=== PATIENT | female | born 1965 | race Caucasian/White ===

== ENCOUNTER 2024-12-31 12:13 | Emergency (ER) | payer MEDICARE, MEDICAID, SELFPAY ==
--- OUTSIDE RECORDS SUMMARY | 2024-12-31 12:22 | XMS_ITS | Encounter Summary ---
Author Organization [facility] Address [address] [place] [address] Phone Care Team Providers Care Business Writer Name Role Phone LeonSerge MD Unavailable [phone] Naresh Chandra MD Unavailable [phone] Espinoza Carcamo DO Unavailable [phone] Veronique Novak MD Unavailable [phone] Dex Mejia MD Unavailable Haim Wilkins Unavailable Pam Baig MD Unavailable [phone] Tariq Welch MD Unavailable [phone] Fatoumata Cox MD Unavailable Carlos Logan DISTRICT SCOUT EXECUTIVE, TAPE SEWING MACHINE OPERATOR Unavailable + [phone] Kris Portillo MD Unavailable Adam Kwan Primary Care Provider + [phone] Encounter Details Date Type Department Care Team (Latest Contact Info) Description 12/29/2024 Results Follow-Up [facility] - Primary Care - [place] [address] [place] [address] Adam Kwan, PAC [address] [place] [address] LIPID PANEL, CBC WITH AUTO DIFFERENTIAL Social History Tobacco Use Types Packs/Day Years Used Date Smoking Tobacco: Never Smokeless Tobacco: Never Alcohol Use Standard Drinks/Week Comments No 0 (1 standard drink = 0.6 oz pur e alcohol) [facility] Utilities Answer Date Recorded In the past 12 months has e electric, gas, oil, or water company threatened to shut off services in your home? Yes 03/10/2024 Social Connection and Isolat ion Panel [NHANES] Answer Date Recorded In a typical week, how many times do you talk on the phone with family, friends, or neighbors? More than three times a week 03/10/2024 Frequency of Social Gatherin gs with Friends and Family Not on file 03/10/2024 Attends Orthodox Services Not on file 03/10 Active Member of Clubs or Organizations Not on f ile 03/10/2024 Attends Club or Organization Meetings Not on marian e 03/10/2024 Marital Status Not on file 03/10/2024 AUDIT-C Answer Date Recorded Q1: How often do you have a drink containing alc ohol? Never 03/10/2024 Average Number of Drinks Not on file Frequency of Binge Drinking Not on file 09/2023 Overall Financial Resource Strain (CARDIA) Answe r Date Recorded How hard is it for you to pa y for the very basics like food, housing, medical care, and heating? Patient declined 03/10/2024 PHQ-2 Answer Date Recorded Total Score - Questions 1-9 10 08/10 [facility] - Occupational Stress Questionnaire Answer Date Recorded Do you feel stress - tense, restless, nervous, or anxious, or unable to sleep at night because your mind is troubled all the time - these days? Rather much 03/10/2024 Exercise Vital Sign Answer Date Recorde d Days of Exercise per Week Not on file 2023 On average, how many minutes do you engage in exercise at this level? 10 min 03/10/2024 Hunger Vital Sign Answer Date Recorded Within the past 12 months, y ou worried that your food would run out before you got the money to buy more. Often true 03/10/20 24 Ran Out of Food in the Last Year Not on file 03/10/2024 PRAPARE - Transportation Answer Date Re corded In the past 12 months, has l ack of transportation kept you from medical appointments or from getting medications? No 03/10/2024 Lack of Transportation (Non-Medical) Not on file 03/10/2024 Housing Stability Vital Sign Answer Kyle e Recorded In the last 12 months, was t here a time when you were not able to pay the mortgage or rent on time? No 03/10/2024 Number of Times Moved in the Last Year Not on fi le 03/10/2024 Homeless in the Last Year Not on file 2023 Education Answer Date Recorded What is the highest level of school you have completed or the highest degree you have received? 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 - Primary Care - [place] [address] [place] [place] [address] Adam Kwan, BREA [address] [place] [address] 05/08/2025 3:00 PM CDT Office Visit [facility] - Endocrinology - [place] [address] [place] [address] Kris Portillo MD [address] [id number] 06/07/2025 1:00 PM CDT Clinical Support [facility] Oncology Services [address] [place] [address] Serge Quintero MD [address] [place] [address] Discharge Disposition: Discharged to home or Selfcare 12/07/2025 11:40 AM CDT Office Visit [facility] Services [address] [place] [address] Serge Quintero MD [address] [place] [address] Discharge Disposition: Discharged to home or Selfcare documented as of this encounter Goals Goal Patient Goal Type Associated Problems Recent Progress Patient-Stated? Author Behavioral Health Behavioral Health On track(2021 2:58 PM CDT) Robbie Matihs, LEE Note: I need coping skills to deal with the chaos at my house. Goal/Objective: Decrease anxiety/depression. Anticipated Time Frame for Goal Completion: 6 months Goal Reviewed with: patient Readiness to change: Ready to change Department associated with goal: [facility] Steps to achieve goal: will identify at least two coping skills/activities/habits that have helped to manage anxiety in the past. will identify at least three new coping skills/activities/habits that may help to prevent and/or cope with anxiety. 3. will identify a plan to implement coping skills and follow this plan for two weeks and evaluate the impact on anxiety 4. Will attend individual and/or group therapy at least 1x/month at least 6 sessions reduce depression Behavioral Health Robbie Mathis, AUTO RENTAL SUPERVISOR Note: Goal/Objective: Increase coping skills for depression. Anticipated Time Frame for Goal Completion: 6 months Goal Reviewed with: patient Readiness to change: Ready to change Department associated with goal: [facility] Steps to achieve goal: will attend counseling/psychotherapy sessions at least once monthly, at least 6 sessions, utilizing individual and/or group sessions to express thoughts and feelings. to identify, verbalize and process at least three contributing factors/triggers to anxiety and depression. to identify and verbalize at least three actions/skills to prevent and/or cope with anxiety and depression. to put into action, at least one time weekly, for one month, an action/skill to prevent and or cope with anxiety and depression. documented as of this encounter Visit Diagnoses Not on filedocumented in this encounter Additional Health Concerns Assessment Noted Time PHQ-9 Depression Total Score: 10 025 3:13 PM CLINICAL STATISTICAL PROGRAMMER documented as of this encounter Care Teams Business Writer Relationship Specialty Start Date End Date Adam Kwan PAC [address] [place] [phone] PCP - General Physician Calender Runner 08/28/24 Serge Quintero MD Consulting Physician Hematology 07/03/15 Naresh Chandra MD Consulting Physician Radiation Oncology 07/03/15 Espinoza Carcamo DO Consulting Physician Gastroenterology 07/10/15 Veronique Novak MD Consulting Physician Psychiatry 02/14/16 Dex Mejia MD [address] [address] General Surgery 06/12/16 Haim Wilkins [address] [address] Consulting Physician Obstetrics & Gynecology 02/22/17 Pam Baig MD #[address] [address] Consulting Physician Pain Medicine-Pain Management 03/19/17 Tariq Welch MD [address] [address] Consulting Physician Orthopaedic Surgery 03/19/17 Fatoumata Cox MD [address] [place] [address] [address] [place] [address] Neuromuscular Medicine 03/19/17 Carlos Logan APRN, TAPE SEWING MACHINE OPERATOR [address] [place] [address] Nurse Practitioner Advanced Practice Nurse 12/01/22 Kris Portillo MD [address] [address] Consulting Physician Endocrinology 03/08/24 documented as of this encounter
--- OUTSIDE RECORDS SUMMARY | 2024-12-31 12:22 | XMS_ITS | Encounter Summary ---
Author Organization [facility] Address [address] [place] [address] Phone Care Team Providers Care Central Office Associate Name Role Phone QuinteroSrege MD Unavailable [phone] Naresh Chandra MD Unavailable [phone] Espinoza Carcamo DO Unavailable [phone] Veronique Novak MD Unavailable [phone] Dex Mejia MD Unavailable [phone] Haim Wilkins Unavailable Pam Baig MD Unavailable [phone] Tariq Welch MD Unavailable [phone] Fatoumata Cox MD Unavailable Marquis Mendez MD Unavailable Valorie Oates MD Primary Care Provider + [phone] Carlos Logan APRN, CNP Unavailable + [phone] Milagros Calloway MD Primary Care Provider + [phone] Kris Portillo MD Unavailable Adam Kwan Primary Care Provider + [phone] Reason for Visit * Reason Comments Medication Refill Encounter Details Date Type Department Care Team (Late st Contact Info) Description 06/09/2023 Refill [facility] [address] [place] [address] Carlos Logan APRN, RESTRICTIVE PREPARATION OPERATOR [address] [place] [address] Medication Refill Social History Tobacco Use Types Packs/Day Years Used Date Smoking Tobacco: Never Smokeless Tobacco: Never Alcohol Use Standard Drinks/Week Comments No 0 (1 standard drink = 0.6 oz pur e alcohol) PHQ-2 Answer Date Recorded Total Score - Questions 1-9 0 /0 11/2021 Education Answer Date Recorded What is the [...] 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 No / Unsure 05/31/2023 2:57 PM CDT documented as of this encounter Plan of Treatment Upcoming Encounters Date Type Department Care Team (Latest Contact Info) Description 01/05/2025 2:30 PM CDT Office Visit [facility] - Primary Care - [place] [address] [place] [address] Adam Kwan PAC [address] [place] [address] 05/08/2025 3:00 PM CDT Office Visit [facility] - Endocrinology - [place] [address] [place] [address] Kris Portillo MD [address] [address] 06/07/2025 1:00 PM CDT Clinical Support [facility] Oncology Services [address] [place] [address] Serge Quintero MD [address] [place] [address] Discharge Disposition: Discharged to home or Selfcare 12/07/2025 11:40 AM CDT Office Visit [facility] Oncology Services [address] [place] [address] Serge Quintero MD [address] [place] [address] Discharge Disposition: Discharged to home or Selfcare documented as of this encounter Goals Goal Patient Goal Type Associated Problems Recent Progress Patient-Stated? Author Behavioral Health Behavioral Health On track(2021 2:58 PM CDT) Robbie Mathis, LEE Note: I need coping skills to deal with the chaos at my house. Goal/Objective: Decrease anxiety/depression. Anticipated Time Frame for Goal Completion: 6 months Goal Reviewed with: patient Readiness to change: Ready to change Department associated with goal: [facility] Steps to achieve goal: [...] sessions reduce depression Behavioral Health Robbie Mathis, LEE Note: Goal/Objective: Increase coping skills for depression. Anticipated Time Frame for Goal Completion: 6 months Goal Reviewed with: patient Readiness to change: Ready to change Department associated with goal: [facility] Steps to achieve goal: [...] filedocumented in this encounter Additional Health Concerns Infection Onset Date Last Indicated Resolved Time Respiratory Rule-Out 09/27/2024 09/27/2024 025 2:11 PM STALLION KEEPER COVID - 19 09/27/2024 09/27/2024 09/27/2024 2:09 PM STALLION KEEPER Assessment Noted Time PHQ-9 Depression Total Score: 0 04/14/20 8:00 AM CDT documented as of this encounter Care Teams Central Office Associate Relationship Specialty Start Date End Date Valorie Benitez MD [address] [place] [address] PCP - General Family Medicine 12/24/22 09/13/23 Milagros Calloway MD [address] [place] [address] PCP - General Family Medicine 09/14/23 08/27/24 Adam Kwan, PAC [address] [address] PCP - General Physician Yarn Inspector 08/28/24 Serge Quintero MD Consulting Physician Hematology 07/03/15 Naresh Chandra MD Consulting Physician Radiation Oncology 07/03/15 Espinoza Carcamo DO Consulting Physician Gastroenterology 07/10/15 Veronique Novak MD Consulting Physician Psychiatry 02/14/16 Dex Mejia MD [address] [address] General Surgery 06/12/16 Haim Wilkins [address] [address] Consulting Physician Obstetrics & Gynecology 02/22/17 Pam Baig MD [address] [address] Consulting Physician Pain Medicine-Pain Management 03/19/17 Tariq Welch MD [address] [address] Consulting Physician Orthopaedic Surgery 03/19/17 Fatoumata Cox MD [address] [place] [address] Neuromuscular Medicine 03/19/17 Marquis Mendez MD [address] [place] [address] Consulting Physician Cardiovascular Disease - Cardiology 08/20/22 09/27/24 Carlos Logan, ENVIRONMENT COORDINATOR, RESTRICTIVE PREPARATION OPERATOR [address] [place] [address] Nurse Practitioner Advanced Practice Nurse 12/01/22 Kris Portillo MD [address] [address] Consulting Physician Endocrinology 03/08/24 documented as of this encounter
--- OUTSIDE RECORDS SUMMARY | 2024-12-31 12:22 | XMS_ITS | Encounter Summary ---
Author Organization [facility] Address [address] [place] [address] Phone Care Team Providers Care Assembler Watch Train Name Role Phone QuinteroSerge MD Unavailable [phone] Naresh Chandra MD Unavailable [phone] Espinoza Carcamo DO Unavailable [phone] Veronique Novak MD Unavailable [phone] Dex Mejia MD Unavailable [phone] Haim Wilkins Unavailable Pam Baig MD Unavailable [phone] Tariq Welch MD Unavailable [phone] Fatoumata Cox MD Unavailable Carlos Logan SPECIAL DELIVERY CARRIER, GOVERNMENT AUDITOR Unavailable [phone] Kris Portillo MD Unavailable Adam Kwan PAC Primary Care Provider + [phone] Reason for Visit * Reason Onset Date Comments Cough 10/02/2024 Encounter Details Date Type Department Care Team (Late st Contact Info) Description 10/02/2024 Nurse Triage [facility] [address] [place] [address] Adam Kwan, PAC [address] [place] [address] Cough Social History Tobacco Use Types Packs/Day Years Used Date Smoking Tobacco: Never Smokeless Tobacco: Never Alcohol Use Standard Drinks/Week Comments No 0 (1 standard drink = 0.6 oz pur e alcohol) [facility] Utilities Answer Date Recorded In the past [...] and Family Not on file 03/10/2024 Attends [employer] Not on file 03/10 Active Member [...] Total Score - Questions 1-9 10 08/10 [facility] - Occupational Stress [...] money to buy more. 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 MAIN FITTER HELPER * Telephone Encounter - Suri Solis RN - 10/02/2024 1:46 PM GAS MAIN FITTER HELPER Patient will have chest x-ray. Order pended. MAIN FITTER HELPER * Telephone Encounter - Adam Kwan PAC - 10/02/2024 1:01 PM CST Would patient be willing to get a CXR to further evaluate? I can place order and she can come get this done in office as an outpatient. MAIN FITTER HELPER * Telephone Encounter - Renae Wren RN - 10/02/2024 12:32 PM CST SITUATION: Cough/Shortness of Breath BACKGROUND: Symptoms ongoing, started on 09/27/24 Per chart review, seen in the office on 09/27/24 ASSESSMENT: Symptom Description / Location: Patient is calling the PCP office States that she is feeling worse than when she was in the office on 09/27/24 Patient states that when she was in the office she was diagnosed with bronchitis Patient was prescribed Prednisone Patient states her symptoms got worse on 09/29/24 Patient states her has been in the hospital with pneumonia Cough Dry hacking cough Intermittent Frequent Coughing to where she gags Chest Pain Mainly with coughing Has also had the chest pain when not coughing More in the middle of the chest/top Intermittent Rates pain 0/10 currently Shortness of Breath At rest and with exertion I am running of breath just talking Talking in phrases Wheezing Its all the time History of asthma Doesn't feel like she is having any asthma attack Was prescribed an inhaler at last office visit States she has only used the inhaler once today Denies Blue or castillo colored lips Rash or hives Coughing started suddenly after medicine, an allergic food or bee sting Difficulty breathing after exposure to flames, smoke, or fumes Asthma attack COVID-19 exposure Pain: Caller denies pain. Fever: Chills. Suspected a fever last night but unsure because she didn't check Treatment / Response: Cough drops with no relief. RECOMMENDATION: Go to Emergency Department Now This RN advised the patient that she should be seen in the Emergency Department for evaluation due to worsening shortness of breath Patient/caller refuses disposition of: GO to ED now Reiterated the importance of following recommendation as symptoms could indicate a serious or life-threatening situation Patient is not wanting to go to the Emergency Department as she is afraid of getting more sick This RN explained the importance of being seen to have her oxygen and lungs evaluated and how the Emergency Department has the most resources to evaluate and treat her Patient still continue to refuse the Emergency Department Patient response:Caller verbalized understanding of recommendations, but continues to refuse emergent disposition and requests provider recommendations. Caller notified that provider will review encounter for further recommendations Caller requesting an appointment in the office or for alternative medication. Care advice provided per triage guideline. Caller verbalized understanding. Pharmacy, medication, and allergies verified No appointments in the office for the rest of the day Patient is refusing the Emergency Department Patient would like to be seen in office or have alternative medication called into pharmacy Patient's recently hospitalized with pneumonia and while in the hospital he got the flu Would PCP be willing to work patient into the schedule or call in a prescription for patient? Encounter routed to provider high priority to notify. Please call patient back with provider advice regarding provider recommendation. Please advise Follow up with patient This RN advised the patient to call the office back or go to Emergency Department if symptoms worsen Patient verbalized understanding - See care advice and disposition for Guideline. First positive answer recorded, all responses to prior questions were negative. If symptoms increase, change or if new symptoms develop, call your health care provider or call back. Recommendations were based on caller information and is not a diagnosis. Verified and reviewed all triage information with caller. Reason for Disposition MODERATE difficulty breathing (e.g., speaks in phrases, SOB even at rest, pulse 100-120) and still present when not coughing Protocols used: Cough-A-OH MAIN FITTER HELPER * Telephone Encounter - Vee Ko - 10/02/2024 12:31 PM GAS MAIN FITTER HELPER Symptoms: Wheezing, Cough Outcome: Warm transfer to an emergent RN NOW! Reason: Any trouble breathing through the mouth The caller accepted this outcome. MAIN FITTER HELPER documented in this encounter Plan of Treatment Upcoming Encounters Date Type Department Care Team (Latest Contact Info) Description 01/05/2025 2:30 PM CDT Office Visit [facility] - [facility] - [place] [address] [place] [phone] Adam Kwan, [facility] [address] [place] [phone] 05/08/2025 3:00 PM CDT Office Visit [facility] - Endocrinology [facility] [address] [place] [phone] Kris Portillo MD [address] [phone] 06/07/2025 1:00 PM CDT Clinical Support [facility] Oncology Services [address] [place] [phone] Serge Quintero MD [address] [place] [address] Discharge Disposition: Discharged to home or Selfcare 12/07/2025 11:40 AM CDT Office Visit [facility] [address] [place] [phone] Serge Quintero MD [address] [place] [address] Discharge Disposition: Discharged to home or Selfcare documented as of this encounter Goals Goal Patient Goal Type Associated Problems Recent Progress Patient-Stated? Author Behavioral Health Behavioral Health On track(2021 2:58 PM CDT) Robbie Mathis, VETERINARY NURSE Note: I need coping skills to deal with the chaos at my house. Goal/Objective: Decrease anxiety/depression. Anticipated Time Frame for Goal Completion: 6 months Goal Reviewed with: patient Readiness to change: Ready to change Department associated with goal: [facility] Steps to achieve [...] least 6 sessions reduce depression Behavioral Health No Robbie Mejia, VETERINARY NURSE Note: Goal/Objective: Increase coping skills for depression. Anticipated Time Frame for Goal Completion: 6 months Goal Reviewed with: patient Readiness to change: Ready to change Department associated with goal: [facility] Steps to achieve [...] and depression. documented as of this encounter Results * XR CHEST 2 VIEWS (10/02/2024 2:47 PM GAS MAIN FITTER HELPER) Anatomical Region Laterality Modality Chest N/A Digital Radiogra phy 10/06/2024 9:57 AM GAS MAIN FITTER HELPER Impressions 10/06/2024 10:00 AM GAS MAIN FITTER HELPER IMPRESSION: No acute cardiopulmonary abnormality. Narrative 10/06/2024 10:00 AM GAS MAIN FITTER HELPER EXAM DESCRIPTION: XR CHEST 2 VIEWS REASON FOR STUDY: Left sided chest pain and cough for 13 days TECHNIQUE: Single radiographic view(s) of the chest. COMPARISON: 08/24/2022 FINDINGS: LUNGS: Pulmonary vascularity appears normal. No confluent infiltrate or effusion. Costophrenic angles are sharp. HEART/MEDIASTINUM: Cardiac silhouette normal in size. Mediastinal and hilar contours appear normal. LINES/TUBES: None. BONES: No acute osseous abnormality. THIS IS AN ELECTRONICALLY VERIFIED FINAL REPORT 10/06/2024 9:57 AM - Electronically signed by Dex Luis M.D. MJ: TRINY Report ID: [id number] Reading Location: [id number] Procedure Note Dex Luis MD - 10/06/2024 EXAM DESCRIPTION: XR CHEST 2 VIEWS REASON FOR STUDY: Left sided chest pain and cough for 13 days TECHNIQUE: Single radiographic view(s) of the chest. COMPARISON: 08/24/2022 FINDINGS: LUNGS: Pulmonary vascularity appears normal. No confluent infiltrate or effusion. Costophrenic angles are sharp. HEART/MEDIASTINUM: Cardiac silhouette normal in size. Mediastinal and hilar contours appear normal. LINES/TUBES: None. BONES: No acute osseous abnormality. THIS IS AN ELECTRONICALLY VERIFIED FINAL REPORT 10/06/2024 9:57 AM - Electronically signed by Dex Luis M.D. MJ: TRINY Report ID: [id number] Reading Location: [id number] IMPRESSION: No acute cardiopulmonary abnormality. Adam Kwan PAC IMG DIAGNOSTIC ORDERABLES Fi nal Result documented in this encounter Visit Diagnoses Diagnosis Acute cough- Primary Acute cough documented in this encounter Additional Health Concerns Assessment Noted Time PHQ-9 Depression Total Score: 10 025 3:13 PM GAS MAIN FITTER HELPER documented as of this encounter Care Teams Assembler Watch Train Relationship Specialty Start Date End Date Adam Kwan, PAC [address] [place] [address] PCP - General Physician Team Cdl Driver 08/28/24 Serge Quintero MD Consulting Physician Hematology 07/03/15 Naresh Chandra MD Consulting Physician Radiation Oncology 07/03/15 Espinoza Carcamo DO Consulting Physician Gastroenterology 07/10/15 Veronique Novak MD Consulting Physician Psychiatry 02/14/16 Dex Mejia MD [address] [address] General Surgery 06/12/16 Haim Wilkins [address] [address] Consulting Physician Obstetrics & Gynecology 02/22/17 Pam Baig MD [address] [address] Consulting Physician Pain Medicine-Pain Management 03/19/17 Tariq Welch MD [address] [address] Consulting Physician Orthopaedic Surgery 03/19/17 Fatoumata Cox MD [address] [place] [address] [address] [place] [address] Neuromuscular Medicine 03/19/17 Carlos Logan, SPECIAL DELIVERY CARRIER, GOVERNMENT AUDITOR [address] [place] [address] Nurse Practitioner Advanced Practice Nurse 12/01/22 Kris Portillo MD [address] [phone] Consulting Physician Endocrinology 03/08/24 documented as of this encounter
--- OUTSIDE RECORDS SUMMARY | 2024-12-31 12:22 | XMS_ITS | Encounter Summary ---
Author Organization [facility] Address [address] [place] [address] Phone Care Team Providers Care Senior Ios Developer Name Role Phone QuinteroSerge MD Unavailable [phone] Naresh Chandra MD Unavailable [phone] Espinoza Carcamo DO Unavailable [phone] Veronique Novak MD Unavailable [phone] Dex Mejia MD Unavailable [phone] Haim Wilkins Unavailable Pam Baig MD Unavailable [phone] Tariq Welch MD Unavailable Fatoumata Cox MD Unavailable Marquis Mendez MD Unavailable Valorie Oates MD Primary Care Provider + [phone] Carlos Logan APRN, CNP Unavailable [phone] Milagros Calloway MD Primary Care Provider + [phone] Kris Portillo MD Unavailable Aadm Kwan Primary Care Provider + [phone] Reason for Visit * Reason Comments Medication Refill Encounter Details Date Type Department Care Team (Late st Contact Info) Description 03/02/2023 Refill [facility] - [facility] - [place] [address] [place] [address] Valorie Benitez MD [address] [place] [address] Medication Refill Social History Tobacco Use Types Packs/Day Years Used Date Smoking Tobacco: Never Smokeless Tobacco: Never Alcohol Use Standard Drinks/Week Comments No 0 (1 standard drink = 0.6 oz pur e alcohol) PHQ-2 Answer Date Recorded Total Score - Questions 1-9 0 04/0 11/2021 Education Answer Date Recorded What is [...] 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 No / Unsure 02/16/2023 2:26 PM CDT documented as of this encounter Miscellaneous Notes * Telephone Encounter - Adam Kwan PAC - 03/03/2023 6:33 PM CDT Rx request approved. * Telephone Encounter - Gardenia Stacy RN - 03/02/2023 2:49 PM CDT Medication failed the protocol, provider to review and approve the medication order if appropriate. Requested Prescriptions Pending Prescriptions Disp Refills triamcinolone (KENALOG) 0.1 % Cream [Pharmacy Med Name: TRIAMCINOLONE ACETONIDE 0.1% CREAM] 45 g 1 Sig: APPLICATION SITE: APPLY THIN COAT TO AFFECTED AREA TWICE DAILY Not Delegated - Topical Steroids Protocol Failed - 03/02/2023 2:48 PM Failed - This refill cannot be delegated Passed - Visit with relevant provider in past 12 months or upcoming 90 days Recent Visits Date Type Provider Dept 12/24/22 Office Visit Valorie Benitez MD [facility] 10/12/22 Office Visit Ashley Sweeney APRN, REPRODUCTION TECHNICIAN [facility] 08/28/22 Office Visit Ashley Sweeney APRN, PATSY [facility] 06/30/22 Office Visit Ashley Sweeney APRN, PATSY [facility] 04/27/22 Office Visit Ashley Sweeney APRN, PATSY [facility] Showing recent visits within past 365 days and meeting all other requirements Future Appointments Date Type Provider Dept 03/22/23 Appointment Valorie Benitez MD [facility] Showing future appointments within next 90 days and meeting all other requirements documented in this encounter Plan of Treatment Upcoming Encounters Date Type Department Care Team (Latest Contact Info) Description 01/05/2025 2:30 PM CDT Office Visit [facility] - Primary Care - [place] [address] [place] [phone] Adam Kwan PAC [address] [place] [address] 05/08/2025 3:00 PM CDT Office Visit [facility] - Endocrinology - [place] [address] [place] [address] Kris Portillo MD [address] [phone] 06/07/2025 1:00 PM CDT Clinical Support [facility] Oncology Services [address] [place] [address] Serge Quintero MD [address] [place] [address] Discharge Disposition: Discharged to home or Selfcare 12/07/2025 11:40 AM CDT Office Visit [facility] [address] [place] [address] Serge Quintero MD [address] [place] [address] Discharge Disposition: Discharged to home or Selfcare [...] Ready to change Department associated with goal: [facility] Steps to achieve goal: [...] reduce depression Behavioral Health No Robbie Mejia, LEE Note: Goal/Objective: Increase coping skills for depression. Anticipated Time Frame for Goal Completion: 6 months Goal Reviewed with: patient Readiness to change: Ready to change Department associated with goal: [facility] Steps to achieve goal: [...] documented as of this encounter Visit Diagnoses Diagnosis Insect bite of right upper extremity, initial encounter documented in this encounter Additional Health Concerns Infection Onset Date Last Indicated Resolved Time Respiratory Rule-Out 09/27/2024 09/27/2024 025 2:11 PM FAMILY SUPPORT COORDINATOR COVID - 19 09/27/2024 09/27/2024 09/27/2024 2:09 PM FAMILY SUPPORT COORDINATOR Assessment Noted Time PHQ-9 Depression Total Score: 0 04/14/20 8:00 AM CDT documented as of this encounter Care Teams Senior Ios Developer Relationship Specialty Start Date End Date Valoire Benitez MD [address] [place] [address] PCP - General Family Medicine 12/24/22 09/13/23 Milagros Calloway MD [address] [place] [address] PCP - General Family Medicine 09/14/23 08/27/24 Adam Kwan, PAC [address] [place] [address] PCP - General Physician Tandem Mill Operator 08/28/24 Serge Quintero MD Consulting Physician Hematology 07/03/15 Naresh Chandra MD Consulting Physician Radiation Oncology 07/03/15 Espinoza Carcamo DO Consulting Physician Gastroenterology 07/10/15 Veronique Novak MD Consulting Physician Psychiatry 02/14/16 Dex Mejia MD [address] [address] General Surgery 06/12/16 Haim Wilkins [address] [address] Consulting Physician Obstetrics & Gynecology 02/22/17 Pam Baig MD [address] [address] Consulting Physician Pain Medicine-Pain Management 03/19/17 Tariq Welch MD [address] [address] Consulting Physician Orthopaedic Surgery 03/19/17 Fatoumata Cox MD [address] [place] [address] [address] [place] [address] Neuromuscular Medicine 03/19/17 Marquis Mendez MD [address] [facility] [address] [place] [address] Consulting Physician Cardiovascular Disease - Cardiology 08/20/22 09/27/24 Carlos Logan, ROD MILL TENDER, REPRODUCTION TECHNICIAN [address] [place] [address] Nurse Practitioner Advanced Practice Nurse 12/01/22 Kris Portillo MD [address] [address] Consulting Physician Endocrinology 03/08/24 documented as of this encounter
--- OUTSIDE RECORDS SUMMARY | 2024-12-31 12:22 | XMS_ITS | Encounter Summary ---
Author Organization [facility] Address [address] [place] [address] Phone Care Team Providers Care Slat Basket Top Maker Name Role Phone Serge Quintero MD Unavailable [phone] Naresh Chandra MD Unavailable [phone] Espinoza Carcamo DO Unavailable [phone] Veronique Novak MD Unavailable Dex Mejia MD Unavailable Haim Wilkins Unavailable Pam Baig MD Unavailable [phone] Tariq Welch MD Unavailable [phone] Fatoumata Cox MD Unavailable Marquis Mendez MD Unavailable LovendCarlos [place]s APRN, BARN BOSS Unavailable + [phone] Kris Portillo MD Unavailable Adam Kwan [facility] Primary Care Provider + [phone] Reason for Visit * Reason Onset Date Comments Appointment 09/26/2024 Loss of Consciousness 09/26/2024 Encounter Details Date Type Department Care Team (Late st Contact Info) Description 09/26/2024 Nurse Triage [facility] [address] [place] [address] Adam Kwan, PAC [address] [place] [address] Appointment; Loss of Consciousness Social History Tobacco Use Types Packs/Day Years Used Date Smoking Tobacco: Never Smokeless Tobacco: Never Alcohol Use Standard Drinks/Week Comments No 0 (1 standard drink = 0.6 oz pur e alcohol) [facility] Utilities Answer Date Recorded In the past 12 months has e [employer], gas, oil, or water Shoulder Tap threatened to shut off services in your home? Yes 03/10/2024 Social Connection and Isolat ion Panel [NHANES] Answer Date Recorded In a typical week, how many times do you talk on the phone with family, friends, or neighbors? More than three times a week 03/10/2024 Frequency of Social Gatherin gs with Friends and Family Not on file 03/10/2024 Attends Spiritism Services Not on file 03/10 Active Member of Clubs or Organizations Not on f ile 03/10/2024 Attends Club or Organization Meetings Not on marian e 03/10/2024 Marital Status Not on file 03/10/2024 AUDIT-C Answer Date Recorded Q1: How often do you have a drink containing alc ohol? Never 03/10/2024 Average Number of Drinks Not on file 024 Frequency of Binge Drinking Not on file 09/2023 Overall Financial Resource Strain (CARDIA) Answe r Date Recorded How hard is it for you to pa y for the very basics like food, housing, medical care, and heating? 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 Per chart review, last office visit 08/31/24 ASSESSMENT: Symptom Description / Location: Symptoms have not improved since discontinuing medication (HCTZ) States Passed out 3 times yesterday Gets up and walks a few steps, and passes out Reports last couple of times she has called with these symptoms, she has been sent to ED and she hasn't been helped- 'they can't figure anything out' Hasn't passed out at all today Has not yet tried the lasix that was prescribed as needed- is afraid to take it Reports has shaking anyway for anxiety baseline Became lightheaded and had to sit down while on phone call with this nurse while getting up to get a pen to write down appointment Pain: Caller denies pain. Fever: Denies fever. Treatment / Response: Tries to sit down a lot, states has chairs located all over so she can sit and not walk a lot with some relief. RECOMMENDATION: Patient/caller refuses disposition of: GO to ED now Reiterated the importance of following recommendation as symptoms could indicate a serious or life-threatening situation Patient response: Patient requesting appointment in office as opposed to emergency department. Advised that appointment may be cancelled by provider and provider may direct patient to ED for evaluation. Caller aware and verbalized understanding and agreement with plan. Provider to review and adviseon change in plan of care due to ED refusal. Appointment Scheduled. All Patient Appointments Date & Time Provider Department Dept Phone 09/27/2024 1:45 PM Adam Kwan [facility] - Primary Care - [place] [phone] Encounter routed to provider high priority to notify. - See care advice and disposition for Guideline. First positive answer recorded, all responses to prior questions were negative. If symptoms increase, change or if new symptoms develop, call your health care provider or call back. Recommendations were based on caller information and is not a diagnosis. Verified and reviewed all triage information with caller. Reason for Disposition Age > 50 years Protocols used: [id number] CAL OFFICE PROFESSIONAL INSTRUCTOR * Telephone Encounter - Yefri Gallagher - 09/26/2024 3:41 PM CST Symptom: Fainted (Passed Out) Outcome: Transfer to hides and skins colorer queue Reason: Caller denied all higher acuity questions The caller accepted this outcome. Caller Denied: * Unconscious now * Chest pain * Acting confused * Can't stand (unless normally can't stand) * Caused by head injury * Trouble walking CAL OFFICE PROFESSIONAL INSTRUCTOR documented in this encounter Plan of Treatment Upcoming Encounters Date Type Department Care Team (Latest Contact Info) Description 01/05/2025 2:30 PM CDT Office Visit [facility] Primary Care - [place] [address] [place] [id number] Adam Kwan, BREA [address] [place] [address] 05/08/2025 3:00 PM CDT Office Visit [facility] Endocrinology - [place] [address] [place] [phone] Kris Portillo MD [address] [phone] 06/07/2025 1:00 PM CDT Clinical Support [facility] Oncology Services [address] [place] [address] Serge Quintero MD [address] [place] [address] Discharge Disposition: Discharged to home or Selfcare 12/07/2025 11:40 AM CDT Office Visit [facility] [address] [place] [address] Serge Quintero MD [address] [place] [address] Discharge Disposition: Discharged to home or Selfcare documented as of this encounter Goals Goal Patient Goal Type Associated Problems Recent Progress Patient-Stated? Author Behavioral Health Behavioral Health On track(2021 2:58 PM CDT) Robbie Mathis, SANITATION INSPECTOR Note: I need coping skills to deal with the chaos at my house. Goal/Objective: Decrease anxiety/depression. Anticipated Time Frame for Goal Completion: 6 months Goal Reviewed with: patient Readiness to change: Ready to change Department associated with goal: [facility] Steps to achieve goal: [...] 6 sessions reduce depression Behavioral Health Robbie Mejia, SANITATION INSPECTOR Note: Goal/Objective: Increase coping skills for depression. Anticipated Time Frame for Goal Completion: 6 months Goal Reviewed with: patient Readiness to change: Ready to change Department associated with goal: [facility] Steps to achieve goal: [...] Respiratory Rule-Out 09/27/2024 09/27/2024 025 2:11 PM MEDICAL OFFICE PROFESSIONAL INSTRUCTOR COVID - 19 09/27/2024 09/27/2024 09/27/2024 2:09 PM MEDICAL OFFICE PROFESSIONAL INSTRUCTOR Assessment Noted Time PHQ-9 Depression Total Score: 10 025 3:13 PM MEDICAL OFFICE PROFESSIONAL INSTRUCTOR documented as of this encounter Care Teams Slat Basket Top Maker Relationship Specialty Start Date End Date Adam Kwan, PAC [address] [place] [phone] PCP - General Physician Rug Touch Up Painter 08/28/24 Serge Quintero MD Consulting Physician Hematology 07/03/15 Naresh Chandra MD Consulting Physician Radiation Oncology 07/03/15 Espinoza Carcamo DO Consulting Physician Gastroenterology 07/10/15 Veronique Novak MD Consulting Physician Psychiatry 02/14/16 Dex Mejia MD [address] [address] General Surgery 06/12/16 Haim Wilkins [address] [address] Consulting Physician Obstetrics & Gynecology 02/22/17 Pam Baig MD [address] [address] Consulting Physician Pain Medicine-Pain Management 03/19/17 Tariq Welch MD [address] [address] Consulting Physician Orthopaedic Surgery 03/19/17 Fatoumata Cox MD [address] [place] [address] [address] [place] [address] Neuromuscular Medicine 03/19/17 Marquis Mendez MD [address] [place] [address] [address] [place] [address] Consulting Physician Cardiovascular Disease - Cardiology 08/20/22 2 Carlos Logan APRN, BARN BOSS [address] [place] [address] Nurse Practitioner Advanced Practice Nurse 12/01/22 Kris Portillo MD [address] [address] Consulting Physician Endocrinology 03/08/24 documented as of this encounter
--- OUTSIDE RECORDS SUMMARY | 2024-12-31 12:22 | XMS_ITS ---
Author Organization [facility] Address [address] [place] [address] Phone Care Team Providers Care Php Software Engineer Name Role Phone QuinteroSerge MD Unavailable Naresh Chandra MD Unavailable Espinoza Carcamo DO Unavailable [phone] Veronique Novak MD Unavailable Dex Mejia MD Unavailable Haim Wilkins Unavailable Pam Baig MD Unavailable Tariq Welch MD Unavailable Fatoumata Cox MD Unavailable Carlos Logan AMERICAN HISTORY PROFESSOR, TECHNICAL APPLICATIONS SPECIALIST Unavailable [phone] Kris Portillo MD Unavailable Adam Kwan [facility] Primary Care Provider [phone] Active Problems Patient Care Coordination No te Formatting of this note migh t be different from the original. 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 She will continue this for another 5-7 days. Only restrictions going forward is no heavy lifting. She will call us back with any questions or concerns Added automatically from request for surgery [id number] Last Assessment & Plan: The triamcinolone cream I sent in for her has helped significantly with the itching. She will continue this for another 5-7 days. Only restrictions going forward is no heavy lifting. She will call us back with any questions or concerns Urinary retention 11/12/2020 Prolapsed internal hemorrhoids, grade 3 11/06/19 21 Urge incontinence of urine 07/30/2020 Major depressive disorder, r ecurrent episode, moderate with anxious distress 04/13/2018 Generalized anxiety disorder 04/13/2018 Status post lymph node biopsy 07/29/2017 Overview (07/29/2017): Right axillary sentinel lymph node biopsy 11/23/2014 in conjunction with a right partial mastectomy. History of partial mastectomy of right breast Overview (07/29/2017): 11/23/2014 in conjunction with a right axillary sentinel lymph node biopsy. Status post right hemicolectomy 07/29/2017 Overview (07/29/2017): Right hemicolectomy 07/16/2015. 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 Right hemicolectomy 07/16/2015. Began adjuvant postoperative chemotherapy September 2015 and received 10 cycles of FOLFOX which she completed January 2016. She declined the final 2 prescribed cycles because of mucositis symptoms. 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 She completed right breast radiotherapy 03/11/2015. She was not recommended to receive chemotherapy but was placed on anastrozole. 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 She completed right breast radiotherapy 03/11/2015. She was not recommended to receive chemotherapy but was placed on anastrozole. 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 She completed right breast radiotherapy 03/11/2015. She was not recommended to receive chemotherapy but was placed on anastrozole. Morbid obesity 07/03/2015 GERD (gastroesophageal reflux disease) 2 Restless leg syndrome Asthma Overview (08/29/2020): Dx as child- triggered by mold, dust Arthritis Overactive bladder Depression Current Treatment and Therapy Plans No current plan information found. Other Current Plans SUPPORT - PROLIA (DENOSUMAB)* Plan Start Date:06/01/2017 Plan Provider:Serge Quintero MD Linked Problems Osteopenia of multiple sites Primary osteoarthritis of left kneeMenopause Treatment Medications No medications scheduled. Past Treatment and Therapy Plans ONCOLOGY TREATMENT Plan Name Start Date Discontinue Date Treatment Medications Discontinue Reason Plan Provider Cycles COLON - FOLFOX 6 09/11/2015 04/22/2016 fluorouracil (ADRUCIL)leucovori n (WELLCOVORIN) IVPBoxaliplatin (ELOXATIN) chemo infusionZZ EXTEMPORANEOUS TEMPLATE Therapy Complete Serge Quintero MD 6 of 6 cycles started Resolved Problems Problem Noted Date Diagnosed Date Resolved Date Left sided abdominal pain 05/31/2023 Elevated d-dimer 08/25/2022 08/25/2022 Syncope and collapse 08/24/2022 023 Diarrhea following gastrointestinal surgery 11/05/2020 05/20/2022 RLQ abdominal pain 11/25/2019 1 Esophagitis determined by endoscopy 02/10/2019 08/29/2020 Dysphagia 02/02/2019 04/14/2019 Speech abnormality 12/23/2016 7 History of therapeutic radiation 03/11/2016 03/19/2017 Overview (03/11/2016): Right breast, completed 03/11/2015 Shingles rash 01/15/2016 03/18/2016 Recurrent oral ulcers 12/17/20152016 Epigastric pain 11/21/2015 04/22/2016 Oral mucositis 10/02/2015 04/22/2016 Chemotherapy induced neutropenia 09/25/2015 04/22/2016 Chemotherapy induced nausea and vomiting 09/17/2015 04/22/2016 Chemotherapy induced diarrhea 09/17/2015 04/22/2016 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
--- OUTSIDE RECORDS SUMMARY | 2024-12-31 12:22 | XMS_ITS | Encounter Summary ---
Author Organization [facility] Address [address] [place] [address] Phone Care Team Providers Care Regional Business Manager Name Role Phone Serge Quintero MD Unavailable [phone] Naresh Chandra MD Unavailable [phone] Espinoza Carcamo DO Unavailable [phone] Veronique Novak MD Unavailable [phone] Dex Mejia MD Unavailable [phone] Haim Wilkins Unavailable Pam Baig MD Unavailable [phone] Tariq Welch MD Unavailable [phone] Fatoumata Cox MD Unavailable Ashley Sweeney MACHINE CARTON MARKER, ALLIED HEALTH PROFESSIONAL Primary Care Provider Marquis Mendez MD Unavailable Valorie Oates MD Primary Care Provider [phone] Carlos Logan APRN, ALLIED HEALTH PROFESSIONAL Unavailable [phone] Milagros Calloway MD Primary Care Provider + [phone] Kris Portilol MD Unavailable Adma Kwan Primary Care Provider + [phone] Reason for Visit * Reason Comments Medication Refill Encounter Details Date Type Department Care Team (Late st Contact Info) Description 12/16/2022 [facility] [place] [address] [place] [address] Ashley Sweeney, TANK, ALLIED HEALTH PROFESSIONAL [address] [place] [address] Medication Refill Social History Tobacco Use Types Packs/Day Years Used Date Smoking Tobacco: Never Smokeless Tobacco: Never Alcohol Use Standard Drinks/Week Comments No 0 (1 standard drink = 0.6 oz pur e alcohol) PHQ-2 Answer Date Recorded Total Score - Questions 1-9 0 11/2021 Education Answer Date Recorded What is [...] 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 No / Unsure 12/15/2022 3:30 PM CDT documented as of this encounter Miscellaneous Notes * Telephone Encounter - Rachel Rivera RN - 12/16/2022 1:18 PM CDT Refill requested too soon. documented in this encounter Plan of Treatment Upcoming Encounters Date Type Department Care Team (Latest Contact Info) Description 01/05/2025 2:30 PM CDT Office Visit [facility] Primary Care - [place] [address] [place] [address] Adam Kwan PAC [address] [place] [address] 05/08/2025 3:00 PM CDT Office Visit [facility] - Endocrinology [facility] [address] [place] [address] Kris [facility]illo MD [address] [facility] [address] [address] 06/07/2025 1:00 PM CDT Clinical Support [facility] Oncology Services [address] [place] [address] Serge Quintero MD [address] [place] [address] Discharge Disposition: Discharged to home or Selfcare 12/07/2025 11:40 AM CDT Office Visit [facility] Services [address] [place] [address] Serge Quintero MD [address] [place] [address] Discharge Disposition: Discharged to home or Selfcare documented as of this encounter Goals Goal Patient Goal Type Associated Problems Recent Progress Patient-Stated? Author Behavioral Health Behavioral Health On track(2021 2:58 PM CDT) Robbie Mathis, OPERATOR COATING FURNACE Note: I need coping skills to deal with the chaos at my house. Goal/Objective: Decrease anxiety/depression. Anticipated Time Frame for Goal Completion: 6 months Goal Reviewed with: patient Readiness to change: Ready to change Department associated with goal: [facility] Steps to achieve [...] sessions reduce depression Behavioral Health Robbie Mejia, OPERATOR COATING FURNACE Note: Goal/Objective: Increase coping skills for depression. Anticipated Time Frame for Goal Completion: 6 months Goal Reviewed with: patient Readiness to change: Ready to change Department associated with goal: [facility] Steps to achieve [...] Respiratory Rule-Out 09/27/2024 09/27/2024 025 2:11 PM BILL CHECKER COVID - 19 09/27/2024 09/27/2024 09/27/2024 2:09 PM BILL CHECKER Assessment Noted Time PHQ-9 Depression Total Score: 0 04/14/20 19 8:00 AM CDT documented as of this encounter Care Teams Regional Business Manager Relationship Specialty Start Date End Date Ashley Sweeney, MACHINE CARTON MARKER, ALLIED HEALTH PROFESSIONAL [address] [place] [address] PCP - General Advanced Practice Nurse 12/16/21 Valorie Benitez MD [address] [place] [address] PCP - General Family Medicine 12/24/22 09/13/23 Milagros Calloway MD [address] [place] [address] PCP - General Family Medicine 09/14/23 08/27/24 Adam Kwan PAC [address] [place] [phone] PCP - General Physician Riveter Automobile Brakes 08/28/24 Serge Quintero MD Consulting Physician Hematology 07/03/15 Naresh Chandra MD Consulting Physician Radiation Oncology 07/03/15 Espinoza Carcamo DO Consulting Physician Gastroenterology 07/10/15 Veronique Novak MD Consulting Physician Psychiatry 02/14/16 Dex Mejia MD [address] [address] General Surgery 06/12/16 Haim Wilkins #[address] [address] Consulting Physician Obstetrics & Gynecology 02/22/17 Pam Baig MD [address] [address] Consulting Physician Pain Medicine-Pain Management 03/19/17 Tariq Welch MD #[address] [address] Consulting Physician Orthopaedic Surgery 03/19/17 Fatoumata Cox MD [address] [place] [address] [address] [place] [address] Neuromuscular Medicine 03/19/17 Marquis Mendez MD [address] [place] [address] Consulting Physician Cardiovascular Disease - Cardiology 08/20/22 09/27/24 Carlos Logan APRN, ALLIED HEALTH PROFESSIONAL [address] [place] [address] Nurse Practitioner Advanced Practice Nurse 12/01/22 Kris Portillo MD [address] [phone] Consulting Physician Endocrinology 03/08/24 documented as of this encounter
--- OUTSIDE RECORDS SUMMARY | 2024-12-31 12:22 | XMS_ITS | Encounter Summary ---
Author Organization [facility] Address [address] [place] [address] Phone Care Team Providers Care Card Brusher Name Role Phone QuinteroSerge MD Unavailable [phone] Naresh Chandra MD Unavailable +[phone] Espinoza Carcamo DO Unavailable [phone] Veronique Novak MD Unavailable +[phone] Dex Mejia MD Unavailable +[phone] Haim Wilkins Unavailable Pam Baig MD Unavailable +[phone] Tariq Welch MD Unavailable [phone] Fatoumata Cox MD Unavailable Marquis Mendez MD Unavailable UnaValorie Cleary MD Primary Care Provider + [phone] Carlos Logan APRN, CNP Unavailable + [phone] Milagros Calloway MD Primary Care Provider + [phone] Kris Portillo MD Unavailable Adam Kwan Primary Care Provider + [phone] Reason for Visit * Reason Comments Medication Refill Encounter Details Date Type Department Care Team (Late st Contact Info) Description 01/14[facility] [address] [place] [address] Serge Quintero MD [address] [place] [address] Medication Refill Social History Tobacco Use Types [...] 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 No / Unsure 01/12/2023 2:46 PM CDT documented as of this encounter Miscellaneous Notes * Telephone Encounter - Alexi Amador RN - 01/14/2023 1:45 PM CDT Denied due to refill on 01/06/23 documented in this encounter Plan of Treatment Upcoming Encounters Date Type Department Care Team (Latest Contact Info) Description 01/05/2025 2:30 PM CDT Office Visit [facility] - Primary Care - [place] [address] [place] [address] Adam Kwan, BREA [address] [place] [address] 05/08/2025 3:00 PM CDT Office Visit [facility] Group - Endocrinology - [place] [address] [place] [address] Kris Portillo MD [address] [address] 06/07/2025 1:00 PM CDT Clinical Support [facility] Oncology Services [address] [place] [address] Serge Quintero MD [address] [place] [address] Discharge Disposition: Discharged to home or Selfcare 12/07/2025 11:40 AM CDT Office Visit [facility] Oncology Services [address] [place] [address] Serge Quintero MD [address] [place] [address] Discharge Disposition: Discharged to home or Selfcare documented as of this encounter Goals Goal Patient Goal Type Associated Problems Recent Progress Patient-Stated? Author Behavioral Health Behavioral Health On track(2021 2:58 PM CDT) Robbie Mathis, BUSINESS CONTINUITY COORDINATOR Note: I need coping skills to deal with the chaos at my house. Goal/Objective: Decrease anxiety/depression. Anticipated Time Frame for Goal Completion: 6 months Goal Reviewed with: patient Readiness to change: Ready to change Department associated with goal: [facility] Steps to achieve [...] reduce depression Behavioral Health No Robbie Mejia, BUSINESS CONTINUITY COORDINATOR Note: Goal/Objective: Increase coping skills for depression. Anticipated Time Frame for Goal Completion: 6 months Goal Reviewed with: patient Readiness to change: Ready to change Department associated with goal: [facility] Steps to achieve [...] as of this encounter Visit Diagnoses Diagnosis Hx of breast cancer Personal history of malignant neoplasm of breast documented in this encounter Additional Health Concerns Infection Onset Date Last Indicated Resolved Time Respiratory Rule-Out 09/27/2024 09/27/2024 025 2:11 PM SUPERVISOR ELECTRONICS PROCESSING COVID - 19 09/27/2024 09/27/2024 09/27/2024 2:09 PM SUPERVISOR ELECTRONICS PROCESSING Assessment Noted Time PHQ-9 Depression Total Score: 0 04/14/20 19 8:00 AM CDT documented as of this encounter Care Teams Card Brusher Relationship Specialty Start Date End Date Valorie Benitez MD [address] [place] [address] PCP - General Family Medicine 12/24/22 09/13/23 Milagros Calloway MD [address] [place] [address] PCP - General Family Medicine 09/14/23 08/27/24 Adam Kwan PAC [address] [place] [address] PCP - General Physician Cloth Printer Helper 08/28/24 Serge Quintero MD Consulting Physician Hematology 07/03/15 Naresh Chandra MD Consulting Physician Radiation Oncology 07/03/15 Espinoza Carcamo DO Consulting Physician Gastroenterology 07/10/15 Veronique Novak MD Consulting Physician Psychiatry 02/14/16 Dex Mejia MD #[address] [address] General Surgery 06/12/16 Haim Wilkins [address] [address] Consulting Physician Obstetrics & Gynecology 02/22/17 Pam Baig MD #[address] [address] Consulting Physician Pain Medicine-Pain Management 03/19/17 Tariq Welch MD #[address] [address] Consulting Physician Orthopaedic Surgery 03/19/17 Fatoumata Cox MD [address] [place] [address] [address] [place] [address] Neuromuscular Medicine 03/19/17 Marquis Mendez MD [address] [place] [address] [address] [place] [address] Consulting Physician Cardiovascular Disease - Cardiology 08/20/22 09/27/24 Carlos Logan, RECRUITMENT SPECIALIST, COORDINATOR OF HEALTH SERVICES [address] [place] [address] Nurse Practitioner Advanced Practice Nurse 12/01/22 Kris Portillo MD #[address] [facility] [address] [place] [address] Consulting Physician Endocrinology 03/08/24 documented as of this encounter
--- OUTSIDE RECORDS SUMMARY | 2024-12-31 12:22 | XMS_ITS | Encounter Summary ---
Author Organization [facility] Address [address] [place] [address] Phone Care Team Providers Care Nurse Staff Name Role Phone QuinteroSerge MD Unavailable [phone] Naresh Chandra MD Unavailable [phone] Espinoza Carcamo DO Unavailable [phone] Veronique Novak MD Unavailable [phone] Dex Mejia MD Unavailable +[phone] Haim Wilkins Unavailable Pam Baig MD Unavailable +[phone] Tariq Welch MD Unavailable Fatoumata Cox MD Unavailable Marquis Mendez MD Unavailable Valorie Oates MD Primary Care Provider + [phone] Carlos Logan APRN, CNP Unavailable + [phone] Milagros Calloway MD Primary Care Provider + [phone] Kris Portillo MD Unavailable Adam Kwan Primary Care Provider + [phone] Reason for Visit * Reason Comments Medication Refill Encounter Details Date Type Department Care Team (Late st Contact Info) Description 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 No / Unsure 04/16/2023 3:47 PM CDT documented as of this encounter Miscellaneous Notes * Telephone Encounter - Melisa French RN - 04/16/2023 12:00 PM CDT Refilled anastrazole per Dr Quintero last visit note documented in this encounter Plan of Treatment Upcoming Encounters Date Type Department Care Team (Latest Contact Info) Description 01/05/2025 2:30 PM CDT [facility] - [place] [address] [place] [address] Adam Kwan, BREA [address] [place] [address] 05/08/2025 3:00 PM CDT Office Visit [facility] - Endocrinology - [place] [address] [place] [address] Kris Portillo MD [address] [address] 06/07/2025 1:00 PM CDT Clinical Support [facility] Oncology Services [address] [place] [address] Serge Quintero MD [address] [place] [address] Discharge Disposition: Discharged to home or Selfcare 12/07/2025 11:40 AM CDT Office Visit [facility] Oncology Services [address] [place] [address] Serge Quintero MD [address] [place] [address] Discharge Disposition: Discharged to home or Selfcare documented as of this encounter Goals Goal Patient Goal Type Associated Problems Recent Progress Patient-Stated? Author Behavioral Health Behavioral Health On track(2021 2:58 PM CDT) Robbie Mathis, LAB ANALYST Note: I need coping skills to deal with the chaos at my house. Goal/Objective: Decrease anxiety/depression. Anticipated Time Frame for Goal Completion: 6 months Goal Reviewed with: patient Readiness to change: Ready to change Department associated with goal: [facility] Steps to achieve [...] reduce depression Behavioral Health No Robbie Mejia, LAB ANALYST Note: Goal/Objective: Increase coping skills for depression. Anticipated Time Frame for Goal Completion: 6 months Goal Reviewed with: patient Readiness to change: Ready to change Department associated with goal: [facility] Steps to achieve [...] Respiratory Rule-Out 09/27/2024 09/27/2024 025 2:11 PM CHEMICAL INSTRUMENTATION OFFICER COVID - 19 09/27/2024 09/27/2024 09/27/2024 2:09 PM CHEMICAL INSTRUMENTATION OFFICER Assessment Noted Time PHQ-9 Depression Total Score: 0 04/14/20 19 8:00 AM CDT documented as of this encounter Care Teams Nurse Staff Relationship Specialty Start Date End Date Valorie Benitez MD [address] [place] [address] PCP - General Family Medicine 12/24/22 09/13/23 Milagros Calloway MD [address] [place] [address] PCP - General Family Medicine 09/14/23 08/27/24 Adam Kwan PAC [address] [place] [address] PCP - General Physician Gear Hobber Operator 08/28/24 Serge Quintero MD Consulting Physician Hematology 07/03/15 Naersh Chandra MD Consulting Physician Radiation Oncology 07/03/15 Espinoza Carcamo DO Consulting Physician Gastroenterology 07/10/15 Veronique Novak MD Consulting Physician Psychiatry 02/14/16 Dex Mejia MD #[address] [address] General Surgery 06/12/16 Haim Wilkins #[address] [address] Consulting Physician Obstetrics & Gynecology 02/22/17 Pam Baig MD #[address] [address] Consulting Physician Pain Medicine-Pain Management 03/19/17 Tariq Welch MD #[address] [address] Consulting Physician Orthopaedic Surgery 03/19/17 Fatomuata Cox MD [address] [place] [address] [address] [place] [address] Neuromuscular Medicine 03/19/17 Marquis Mendez MD [address] [place] [address] [address] [place] [address] Consulting Physician Cardiovascular Disease - Cardiology 08/20/22 09/27/24 Carlos Logan APRN, MANAGER [address] [place] [address] Nurse Practitioner Advanced Practice Nurse 12/01/22 Kris Portillo MD [address] [facility] [address] [place] [address] Consulting Physician Endocrinology 03/08/24 documented as of this encounter
--- OUTSIDE RECORDS SUMMARY | 2024-12-31 12:22 | XMS_ITS | Encounter Summary ---
Author Organization [facility] Address [address] [place] [address] Phone Care Team Providers Care Park Naturalist Name Role Phone Serge Quintero MD Unavailable [phone] Naresh Chandra MD Unavailable [phone] Espinoza Carcamo DO Unavailable [phone] Veronique Novak MD Unavailable [phone] Dex Mejia MD Unavailable [phone] Haim Wilkins Unavailable Pam Baig MD Unavailable [phone] Tariq Welch MD Unavailable [phone] Fatoumata Cox MD Unavailable Ashley Sweeney BIG DATA SOFTWARE ENGINEER, INSURANCE SERVICE REPRESENTATIVE Primary Care Provider Marquis Mendez MD Unavailable Valorie Oates MD Primary Care Provider + [phone] Carlos Logan APRN, INSURANCE SERVICE REPRESENTATIVE Unavailable + [phone] Milagros Calloway MD Primary Care Provider + [phone] Kris Portillo MD Unavailable Adam Kwan Primary Care Provider + [phone] Reason for Visit * Reason Comments Medication Refill Encounter Details Date Type Department Care Team (Late st Contact Info) Description 09/14/2022 Refill [facility] UROLOGY [address] [place] [address] Carlos Logan APRN, INSURANCE SERVICE REPRESENTATIVE [address] [place] [address] Medication Refill Social History Tobacco Use Types [...] 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 No / Unsure 08/28/2022 9:15 AM GAS TURBINE POWERPLANT MECHANIC HELPER documented as of this encounter Plan of Treatment Upcoming Encounters Date Type Department Care Team (Latest Contact Info) Description 01/05/2025 2:30 PM CDT Office Visit [facility] - Primary Care - [place] [address] [place] [address] Adam Kwan PAC [address] [place] [address] 05/08/2025 3:00 PM CDT Office Visit [facility] - Endocrinology - [place] [address] [place] [address] Kris Portillo MD [address] [address] 06/07/2025 1:00 PM CDT Clinical Support [facility] Oncology Services [address] [place] [address] Serge Quintero MD [address] [place] [address] Discharge Disposition: Discharged to home or Selfcare 12/07/2025 11:40 AM CDT Office Visit [facility] Oncology Services [address] [place] [address] Serge Quintero MD [address] [place] [address] Discharge Disposition: Discharged to home or Selfcare documented as of this encounter Goals Goal Patient Goal Type Associated Problems Recent Progress Patient-Stated? Author Behavioral Health Behavioral Health On track(2021 2:58 PM CDT) Robbie Mathis LCSW Note: I need coping skills to deal with the chaos at my house. Goal/Objective: Decrease anxiety/depression. Anticipated Time Frame for Goal Completion: 6 months Goal Reviewed with: patient Readiness to change: Ready to change Department associated with goal: [facility] Steps to achieve [...] Ready to change Department associated with goal: [facility] Steps to achieve [...] as of this encounter Visit Diagnoses Diagnosis OAB (overactive bladder) Hypertonicity of bladder Urinary incontinence, unspecified type documented in this encounter Additional Health Concerns Infection Onset Date Last Indicated Resolved Time Respiratory Rule-Out 09/27/2024 09/27/2024 025 2:11 PM GAS TURBINE POWERPLANT MECHANIC HELPER COVID - 19 09/27/2024 09/27/2024 09/27/2024 2:09 PM GAS TURBINE POWERPLANT MECHANIC HELPER Assessment Noted Time PHQ-9 Depression Total Score: 0 04/14/20 8:00 AM CDT documented as of this encounter Care Teams Park Naturalist Relationship Specialty Start Date End Date Ashley Sweeney, BIG DATA SOFTWARE ENGINEER, INSURANCE SERVICE REPRESENTATIVE [address] [place] [address] PCP - General Advanced Practice Nurse 12/16/21 Valorie Benitez MD [address] [place] [address] PCP - General Family Medicine 12/24/22 09/13/23 Milagros Calloway MD [address] [place] [place] [address] PCP - General Family Medicine 09/14/23 08/27/24 Adam Kwan PAC [address] [place] [address] PCP - General Physician Ironer Machine 08/28/24 Serge Quintero MD Consulting Physician Hematology 07/03/15 Naresh Chandra MD Consulting Physician Radiation Oncology 07/03/15 Espnioza Carcamo DO Consulting Physician Gastroenterology 07/10/15 Veronique Novak MD Consulting Physician Psychiatry 02/14/16 Dex Mejia MD #[address] [address] General Surgery 06/12/16 Haim Wilkins #[address] [address] Consulting Physician Obstetrics & Gynecology 02/22/17 Pam Baig MD #[address] [address] Consulting Physician Pain Medicine-Pain Management 03/19/17 Tariq Welch MD #[address] [address] Consulting Physician Orthopaedic Surgery 03/19/17 Fatoumata Cox MD [address] [place] [address] [address] [place] [address] Neuromuscular Medicine 03/19/17 Marquis Mendez MD [address] [place] [address] Consulting Physician Cardiovascular Disease - Cardiology 08/20/22 09/27/24 Carlos Logan APRN, INSURANCE SERVICE REPRESENTATIVE [address] [place] [address] Nurse Practitioner Advanced Practice Nurse 12/01/22 Kris [facility] MD [facility] [facility] [address] [phone] Consulting Physician Endocrinology 03/08/24 documented as of this encounter
--- OUTSIDE RECORDS SUMMARY | 2024-12-31 12:22 | XMS_ITS | Encounter Summary ---
Author Organization [facility] Address [address] [place] [address] Phone Care Team Providers Care Iron Cutter Name Role Phone QuinteroSerge MD Unavailable [phone] Naresh Chandra MD Unavailable [phone] Espinoza Carcamo DO Unavailable [phone] Veronique Novak MD Unavailable [phone] Dex Mejia MD Unavailable [phone] Haim Wilkins Unavailable Pam Baig MD Unavailable [phone] Tariq Welch MD Unavailable Fatoumata Cox MD Unavailable Marquis Mendez MD Unavailable UnaValorie Cleary MD Primary Care Provider + [phone] Carlos Logan APRN, CNP Unavailable + [phone] Milagros Calloway MD Primary Care Provider + [phone] Kris Portillo MD Unavailable Adam Kwan Primary Care Provider + [phone] Reason for Visit * Reason Comments Medication Refill Encounter Details Date Type Department Care Team (Late st Contact Info) Description 01/06/2023 [facility] [address] [place] [address] Serge Quintero MD [address] [place] [address] Medication Refill Social History Tobacco Use Types [...] 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 No / Unsure 12/24/2022 3:25 PM CDT documented as of this encounter Miscellaneous Notes * Telephone Encounter - Rosana Manzo RN - 01/06/2023 12:41 PM CDT Refilled anastrozole per f/u note. Next f/u 4 months documented in this encounter Plan of Treatment Upcoming Encounters Date Type Department Care Team (Latest Contact Info) Description 01/05/2025 2:30 PM CDT Office Visit [facility] - Primary Care - [place] [address] [place] [address] Adam Kwan, PAC [address] [place] [address] 05/08/2025 3:00 PM CDT Office Visit [facility] Group - Endocrinology - [place] [address] [place] [address] Kris Portillo MD [address] [address] 06/07/2025 1:00 PM CDT Clinical Support [facility] Oncology Services [address] [place] [address] Serge Quintero MD [address] [place] [address] Discharge Disposition: Discharged to home or Selfcare 12/07/2025 11:40 AM CDT Office Visit [facility] Oncology Services [address] [place] [address] Serge Quintero MD [address] [place] [address] Discharge Disposition: Discharged to home or Selfcare documented as of this encounter Goals Goal Patient Goal Type Associated Problems Recent Progress Patient-Stated? Author Behavioral Health Behavioral Health On track(2021 2:58 PM CDT) Robbie Mathis, MACHINE OPERATOR REPLANTER Note: I need coping skills to deal with the chaos at my house. Goal/Objective: Decrease anxiety/depression. Anticipated Time Frame for Goal Completion: 6 months Goal Reviewed with: patient Readiness to change: Ready to change Department associated with goal: [facility] Steps to achieve goal: [...] reduce depression Behavioral Health No Robbie Mejia, MACHINE OPERATOR REPLANTER Note: Goal/Objective: Increase coping skills for depression. Anticipated Time Frame for Goal Completion: 6 months Goal Reviewed with: patient Readiness to change: Ready to change Department associated with goal: [facility] Steps to achieve goal: [...] Respiratory Rule-Out 09/27/2024 09/27/2024 025 2:11 PM WAXED BAG MACHINE OPERATOR COVID - 19 09/27/2024 09/27/2024 09/27/2024 2:09 PM WAXED BAG MACHINE OPERATOR Assessment Noted Time PHQ-9 Depression Total Score: 0 04/14/20 19 8:00 AM CDT documented as of this encounter Care Teams Iron Cutter Relationship Specialty Start Date End Date Valorie Benitez MD [address] [place] [address] PCP - General Family Medicine 12/24/22 09/13/23 Milagros Calloway MD [address] [place] [address] PCP - General Family Medicine 09/14/23 08/27/24 Adam Kwan PAC [address] [place] [address] PCP - General Physician Mining Professionals 08/28/24 Serge Quintero MD Consulting Physician Hematology 07/03/15 Naresh Chandra MD Consulting Physician Radiation Oncology 07/03/15 Espinoza Carcamo DO Consulting Physician Gastroenterology 07/10/15 Veronique Novak MD Consulting Physician Psychiatry 02/14/16 Dex Mejia MD #[address] [address] General Surgery 06/12/16 Haim Wilkins #[address] [address] Consulting Physician Obstetrics & Gynecology 02/22/17 Pam Baig MD #[address] [address] Consulting Physician Pain Medicine-Pain Management 03/19/17 Tariq Welch MD #[address] [address] Consulting Physician Orthopaedic Surgery 03/19/17 Fatoumata Cox MD [address] [place] [address] [address] [place] [address] Neuromuscular Medicine 03/19/17 Marquis Mendez MD [address] [facility] [address] [place] [address] Consulting Physician Cardiovascular Disease - Cardiology 08/20/22 09/27/24 Carlos Logan APRN, SERVICE PROVIDER [address] [place] [address] Nurse Practitioner Advanced Practice Nurse 12/01/22 Kris Portillo MD [address] [facility] [address] [place] [address] Consulting Physician Endocrinology 03/08/24 documented as of this encounter
--- OUTSIDE RECORDS SUMMARY | 2024-12-31 12:22 | XMS_ITS | Encounter Summary ---
Author Organization [facility] Address [address] [place] [address] Phone Care Team Providers Care Rice Farmer Name Role Phone QuinteroSerge MD Unavailable [phone] Naresh Chandra MD Unavailable [phone] Espinoza Carcamo DO Unavailable [phone] Veronique Novak MD Unavailable [phone] Dex Mejia MD Unavailable [phone] Haim Wilkins Unavailable Pam Baig MD Unavailable [phone] Tariq Welch MD Unavailable Fatoumata Cox MD Unavailable Francis Khan [facility] Primary Care Provider Modesta Julio RN Unavailable Unavailable Lorena Day Unavailable Unavailab Ashley [place] AQUARIUM TANK ATTENDANT, TANK STAVE ASSEMBLER Primary Care Provider Marquis Mendez MD Unavailable Valorie Oates MD Primary Care Provider + [phone] Carlos Logan APRN, TANK STAVE ASSEMBLER Unavailable + [phone] Milagros Calloway MD Primary Care Provider + [phone] Kris Portillo MD Unavailable Adam Kwan Primary Care Provider Reason for Visit * Reason Comments Medication Refill Encounter Details Date Type Department Care Team (Late st Contact Info) Description [facility] [address] [place] [phone] Serge Quintero MD [address] [place] [address] Medication Refill Social History Tobacco Use Types [...] or the highest degree you have received? 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 No / Unsure 11/04/2021 1:05 PM CDT documented as of this encounter Miscellaneous Notes * Telephone Encounter - Marjan Mar RN - 11/17/2021 3:57 PM CDT Refilled Anastrozole next f/u 03/24/22 documented in this encounter Plan of Treatment Upcoming Encounters Date Type Department Care Team (Latest Contact Info) Description 01/05/2025 2:30 PM CDT Office Visit [facility] - Primary Care - [address] [place] [phone] Adam Kwan PAC [address] [place] [phone] 05/08/2025 3:00 PM CDT Office Visit [facility] - Endocrinology - [place] [address] [place] [address] Kris Portillo MD [address] [address] 06/07/2025 1:00 PM CDT Clinical Support [facility] Oncology Services [address] [place] [phone] Serge Quintero MD [address] [place] [address] Discharge Disposition: Discharged to home or Selfcare 12/07/2025 11:40 AM CDT Office Visit [facility] Oncology Services [address] [place] [address] Serge Quintero MD [address] [place] [address] Discharge Disposition: Discharged to home or Selfcare documented as of this encounter Visit Diagnoses Diagnosis Hx of breast cancer Personal history of malignant neoplasm of breast documented in this encounter Additional Health Concerns Infection Onset Date Last Indicated Resolved Time Respiratory Rule-Out 09/27/2024 09/27/2024 025 2:11 PM 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 COVID - 19 09/27/2024 09/27/2024 09/27/2024 2:09 PM 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 Assessment Noted Time PHQ-9 Depression Total Score: 0 04/14/20 8:00 AM CDT documented as of this encounter Care Teams Rice Farmer Relationship Specialty Start Date End Date Francis Khan PAC [address] [facility] [address] [place] [address] PCP - General Physician Diamond Die Maker 08/29/20 12/15/21 Ashley Sweeney, AQUARIUM TANK ATTENDANT, TANK STAVE ASSEMBLER [address] [place] [address] PCP - General Advanced Practice Nurse 12/16/21 Valorie Benitez MD [address] [place] [address] PCP - General Family Medicine 12/24/22 09/13/23 Milagros Calloway MD [address] [place] [address] PCP - General Family Medicine 09/14/23 08/27/24 Adam Kwan, [facility] [address] [place] [address] PCP - General Physician Diamond Die Maker 08/28/24 Serge Quintero MD Consulting Physician Hematology 07/03/15 Naresh Chandra MD Consulting Physician Radiation Oncology 07/03/15 Espinoza Carcamo DO Consulting Physician Gastroenterology 07/10/15 Veronique Novak MD Consulting Physician Psychiatry 02/14/16 Dex Mejia MD [address] [address] General Surgery 06/12/16 FrankyHaim [address] [address] Consulting Physician Obstetrics & Gynecology 02/22/17 Pam Baig MD [address] [address] Consulting Physician Pain Medicine-Pain Management 03/19/17 Tariq Welch MD [address] [address] Consulting Physician Orthopaedic Surgery 03/19/17 Fatoumata Cox MD [address] [place] [address] [address] [place] [address] Neuromuscular Medicine 03/19/17 Modesta Bojorquez RN [place] Tunneling Machine Operator 11/10/21 05/20/22 Lorena Day LSW [place] Tunneling Machine Operator 11/12/21 05/20/22 Marquis Mendez MD [address] [place] [address] Consulting Physician Cardiovascular Disease - Cardiology 08/20/22 09/27/24 Carlos Logan, AQUARIUM TANK ATTENDANT, TANK STAVE ASSEMBLER [address] [place] [address] Nurse Practitioner Advanced Practice Nurse 12/01/22 Kris Portillo MD [address] [address] Consulting Physician Endocrinology 03/08/24 documented as of this encounter
--- OUTSIDE RECORDS SUMMARY | 2024-12-31 12:22 | XMS_ITS | Clinical Summary ---
Author Organization [facility] Address [address] [place] [address] Phone Care Team Providers Care Sleeper Cutter Name Role Phone QuinteroSerge MD Unavailable Naresh Chandra MD Unavailable [phone] Espinoza Carcamo DO Unavailable [phone] Veronique Novak MD Unavailable Dex Mejia MD Unavailable Haim Wilkins Unavailable Pam Baig MD Unavailable [phone] Tariq Welch MD Unavailable [phone] Fatoumata Cox MD Unavailable Carlos Logan MECHANICAL TECHNOLOGIST, ADJUNCT PROFESSOR Unavailable [phone] Kris Portillo MD Unavailable Adam Kwan [facility] Primary Care Provider [phone] Allergies Active Allergy Reactions Criticality Noted Date Comments Acyclovir Hallucinations 10/04/2019 Diazepam Other (see Comments) 08/03/2012 Note: Imported from external source. - pt states she does not believe she is allergic to this medication. Metronidazole Vomiting 01/30/2020 Armodafinil Other (see Comments) 03/08/2017 Disorientation Pantoprazole Rash 02/15/2019 Penicillins Anaphylaxis,Rash High 06/28/2015 Plastibase Rash 06/28/2015 Allergic to bandaids and plastic tape Tetracyclines & Related Vomiting,Nausea 020 Note: Imported from external source. Wound Dressing Adhesive Rash,Hives 12/25/2010 Note: Imported from external source. Medications hydrOXYzine (ATARAX) 25 MG Tablet Take 25 mg by mouth as needed. Takes at night Active ARIPiprazole (ABILIFY) 15 MG Tablet Take 15 mg by mouth daily. 06/03/20 20 Active omeprazole (PriLOSEC) 20 MG CAPSULE DELAYED RELEASE TAKE ONE CAPSULE BY MOUTH EVERY MORNING BEFORE BREAKFAST 90 Capsule 01/24/20 21 Active venlafaxine (EFFEXOR) 75 MG Tablet Take 75 mg by mouth every morning. Active famotidine (PEPCID) 20 MG Tablet TAKE TWO (2) TABLETS BY MOUTH DAILY. 60 Tablet 1 01/15/20 23 Active gabapentin (NEURONTIN) 400 MG Capsule 2 times daily. 03/12/20 23 Active cyclobenzaprine (FLEXERIL) 10 MG TabletIndications: Bilateral sciatica Take 1 Tablet by mouth 3 times daily as needed for Muscle spasms. Muscle Relaxant; causes drowsiness 30 Tablet 04/16/20 23 Active venlafaxine (EFFEXOR-XR) 150 MG CAPSULE SR 24 HR Take 150 mg by mouth daily. Active anastrozole (ARIMIDEX) 1 MG TabletIndications: Hx of breast cancer TAKE ONE TABLET BY MOUTH EVERY DAY 90 Tablet 3 11/02/19 24 Active meloxicam (MOBIC) 15 MG TabletIndications: Primary osteoarthritis of both knees Take 1 Tablet by mouth daily for 360 days. 90 Tablet 3 01/25/20 24 025 Active Blood Glucose Monitoring Suppl DeviceIndications: Type 2 diabetes mellitus without complication, without long-term current use of insulin Diagnosis: E11.9 Blood testing frequency: 1-2 times a day 1 Each 03/10/20 24 Active Glucose Blood StripIndications:T ype 2 diabetes mellitus without complication, without long-term current use of insulin Diagnosis: E11.9 frequency: 2-3 times a day 100 Strip 3 03/10/20 24 Active Lancets MiscIndications:Ty pe 2 diabetes mellitus without complication, without long-term current use of insulin Test 2-3 times per day. DX: E11.9 100 Lancet . 5 03/10/20 24 Active furosemide (LASIX) 20 MG TabletIndications: Peripheral edema Take 1 Tablet by mouth daily as needed (lower leg swelling). 90 Tablet 08/31/19 25 Active albuterol 108 (90 Base) MCG/ACT Aerosol SolutionIndication s:Acute cough,Bronchitis take 2 Puffs by inhalation every 6 hours as needed for Wheezing or Cough. 18 g 09/27/19 25 Active methylPREDNISolone (Medrol) 4 MG Tablet Therapy PackIndications:Ac ronaldo cough,Bronchitis Use as per instructions on package. 21 Tablet 09/27/19 25 Active Additional Information Patient not taking.Reported on 11/06/2024 promethazine-dextr omethorphan (PROMETHAZINE-DM) 6.25-15 MG/5ML SyrupIndications:U pper respiratory tract infection, unspecified type Take 5 mL by mouth every 4 hours as needed for Cough. 240 mL 10/10/19 25 Active Additional Information Patient not taking.Reported on 12/05/2024 Tirzepatide (Mounjaro) 7.5 MG/0.5ML Solution Auto-injector INJECT 7.5 MG UNDER THE SKIN ONCE A WEEK 6 mL 1 11/21/19 25 Active Active Problems Patient Care Coordination No te Formatting of this note migh t be different from the original. 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 She will continue this for another 5-7 days. Only restrictions going forward is no heavy lifting. She will call us back with any questions or concerns Added automatically from request for surgery [id number] Last Assessment & Plan: The triamcinolone cream I sent in for her has helped significantly with the itching. She will continue this for another 5-7 days. Only restrictions going forward is no heavy lifting. She will call us back with any questions or concerns Urinary retention 11/12/2020 Prolapsed internal hemorrhoids, grade 3 11/06/19 Urge incontinence of urine 07/30/2020 Major depressive [...] colon cancer 06/12/2016 Overview (07/29/2017): Stage IIIA ([id number]) adenocarcinoma of the ascending colon. Right hemicolectomy 07/16/2015. Began adjuvant postoperative chemotherapy September 2015 and received 10 cycles of FOLFOX which she completed January 2016. She declined the final 2 prescribed cycles because of mucositis symptoms. 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 She completed right breast radiotherapy 03/11/2015. She was not recommended to receive chemotherapy but was placed on anastrozole. 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 She completed right breast radiotherapy 03/11/2015. She was not recommended to receive chemotherapy but was placed on anastrozole. 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 She completed right breast radiotherapy 03/11/2015. She was not recommended to receive chemotherapy but was placed on anastrozole. Morbid obesity 07/03/2015 GERD (gastroesophageal reflux disease) 2 Restless leg syndrome Asthma Overview (08/29/2020): Dx as child- triggered by mold, dust Arthritis Overactive bladder Depression Resolved Problems Problem Noted Date Diagnosed Date [...] IA(T1c, N0, cM0) - Unsigned Overview (07/03/2015): ER+/AK+, HER2-, Ki67-16% Encounter for screening mamm ogram for malignant neoplasm of breast 09/27/2024 Encounters Date Type Department Care Team Description 12/29/2024 8:40 AM CDT Lab [facility] [place] [address] [place] [address] Syncope and collapse; Hypotension due to hypovolemia; Type 2 diabetes mellitus without complication, without long-term current use of insulin Discharge Disposition: Discharged to home or Selfcare 12/29/2024 Results Follow-Up [facility] [place] [address] [facility] [place] [address] Adam Kwan, PAC LIPID PANEL, CBC WITH AUTO DIFFERENTIAL 12/29/2024 Travel 12/05/2024 1:30 PM CDT Clinical Support [facility] [address] [place] [phone] Melisa French, MECHANICAL TECHNOLOGIST, ADJUNCT PROFESSOR Osteopenia of multiple sites (Primary Dx); Iron deficiency anemia due to chronic blood loss Discharge Disposition: Discharged to home or Selfcare 12/05/2024 1:15 PM CDT Office Visit [facility] [address] [place] [phone] ManoloMelisa taylor APRN, ADJUNCT PROFESSOR Hx of breast cancer (Primary Dx); History of colon cancer Discharge Disposition: Discharged to home or Selfcare 12/05/2024 Travel 12/05/2024 Results Follow-Up [facility] [address] [place] [phone] Adam Kwan, PAC THYROID SCREEN WITH REFLEX 12/04/2024 Travel 11/20/2024 Refill [facility] [address] [place] [phone] Kris Portillo MD Medication Refill 11/06/2024 3:00 PM CDT Office Visit [facility] [address] [place] [phone] Kris Portillo MD Type 2 diabetes mellitus without complication, without long-term current use of insulin (HCC) (Primary Dx); Class 3 severe obesity due to excess calories with serious comorbidity and body mass index (BMI) of 40.0 to 44.9 in adult (HCC); Medication side effect; Cervical lymphadenopathy Discharge Disposition: Discharged to home or Selfcare 11/06/2024 Travel 10/09/2024 2:00 PM CARRY OUT CLERK Urgent Care Visit [facility] [address] [place] [address] Tati Marti APRN, ADJUNCT PROFESSOR Upper respiratory tract infection, unspecified type (Primary Dx); Morbid obesity (HCC) Discharge Disposition: Discharged to home or Selfcare 10/09/2024 Travel 10/09/2024 Nurse Triage [facility] [address] [place] [address] Adam Kwan, PAC Appointment; Cough 10/06/2024 Results Follow-Up [facility] [address] [place] [address] Adam Kwan, PAC XR CHEST 2 VIEWS from Last 3 Months Immunizations Immunization Administration Dates Next Due Covid-19 Vaccine, Vector-nr, Rs-ad26, Pf, 0.5 Ml (MAXIMILIANO/J&J) 10/12/2020 Influenza Vaccine, Quadrivalent, PF 03/2023,06/30/2022,04/21/2021,04/19,04/14/2019,04/22/2018,07/08/2016 Influenza,Split Virus,Trivalent,Injectable,PF 08/31/2024 PUR TDAP 7+ YRS IM 08/28/2016 Pneumococcal Vaccine Adult - 23 Valent 3 Pneumococcal conjugate PCV20 , polysaccharide [id number] conjugate, adjuvant, PF 06/30/2022 Family History Medical History Relation Name Comments Congestive Heart Failure Brother 1 Heart Attack Brother 1 No Known Problems Brother 2 Lucas No Known Problems Brother 3 Maldonado No Known Problems Daughter 1 No Known Problems Daughter 2 Alcohol Abuse Father Congestive Heart Failure Father Heart Attack Father Hypertension Half-Sister Diabetes Mother Hypertension Mother Depression Sister Drug Abuse Sister No Known Problems Son 1 No Known Problems Son 2 Drug Abuse Son 3 Suicide Attempts Son 3 Relation Name Status Comments Brother 1 Brother 2 Lucas Alive Brother 3 Maldonado Alive Daughter 1 Alive Daughter 2 Alive Father Half-Sister Alive Mother Sister Alive Son 1 Alive Son 2 Alive Son 3 Social History Tobacco Use Types Packs/Day Years Used Date Smoking Tobacco: Never Smokeless Tobacco: Never Tobacco Cessation:Counseling Given: Not Answered Alcohol Use Standard Drinks/Week Comments No 0 (1 standard drink = 0.6 oz pur e alcohol) [employer] Answer Date Recorded In the past 12 months has [employer], gas, oil, or water [employer] threatened to shut off services in your home? Yes 03/10/2024 Social Connection and Isolat ion Panel [NHANES] Answer Date Recorded In a typical week, how many times do you talk on the phone with family, friends, or neighbors? 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 Not on file Not on file Not on file Last Filed Vital Signs Vital Sign Reading Time Taken Comments Blood Pressure 107/72 12/05/2024 12:59 PM CDT Pulse 94 12/05/2024 12:59 PM CDT Temperature 36.3 C (97.4 F) 12/05/2024 12:59 PM CDT Respiratory Rate 18 12/05/2024 12:5 9 PM CDT Oxygen Saturation 98% 12/05/2024 12: 59 PM CDT Inhaled Oxygen Concentration - - Weight 95.7 kg (210 lb 14.4 oz) 025 12:59 PM CDT Height 154.9 cm (5' 1) 12/05/2024 12:5 9 PM CDT Body Mass Index 39.85 12/05/2024 12:59 PM CDT Plan of Treatment Upcoming Encounters Date Type Department Care Team (Latest Contact Info) Description 01/05/2025 2:30 PM CDT Office Visit [facility] [place] [address] [place] [address] Adam Kwan, [facility] [address] [place] [address] 05/08/2025 3:00 PM CDT Office Visit [facility] [place] [address] [place] [phone] Kris Portillo MD [address] [phone] 06/07/2025 1:00 PM CDT Clinical Support [facility] [address] [place] [phone] Serge Quintero MD [address] [place] [address] Discharge Disposition: Discharged to home or Selfcare 12/07/2025 11:40 AM CDT Office Visit [facility] [address] [place] [address] Serge Quintero MD [address] [place] [address] Discharge Disposition: Discharged to home or Selfcare Health Maintenance Due Date Last Done Comments Diabetes: Eye Exam 1965 Hepatitis C Virus (HCV) Screening 1965 Zoster Immunization (1 of 2) 1982 Cologuard 2013 Immunochemical Fecal Occult Blood 2013 Diabetes: Foot Exam 06/02/2022 06/02/2021 Respiratory Syncytial Virus (RSV) Immunization (Adult) (1 - Risk 60-74 years 1-dose series) 2023 SARS-COV-2 Immunization ( season) 2024 02/24/2022, 06/19/2021, 10/12/2020 Diabetes: Hemoglobin A1c 05/08/2025 025, 04/03/2024, 01/04/2024, Additional history exists Colonoscopy 07/22/2025 07/22/2023, 01/07, 01/17/2018, Additional history exists Colorectal Cancer Screening 07/22/2025 Mammogram 09/08/2025 09/08/2024, 10/2023, 04/30/2022, Additional history exists Diabetes: Nephropathy Screening 12/04/2025 12/04/2024, 08/11/2024, 05/22/2024, Additional history exists Td Immunization Every 10 Years (Adults With 1 Tdap) 08/28/2026 08/28/2016 07/22/2023, 01/07, 01/17/2018, Additional history exists Pap Smear Discontinued 08/17/2016 Pneumococcal Immunization (50+ years) Completed 06/30/2022, 02/01/2013 Pneumococcal Immunization Combined Discontinued 06/30/2022, 02/01/2013 Influenza Immunization Completed , 04/16/2023, 06/30/2022, Additional history exists Cervical Cancer Screening (CCS) Discontinued HPV/Cotest Discontinued Hepatitis B Immunization Aged Out No longer eligible based on patient's age to complete this topic Human Papillomavirus (HPV) Immunization Aged Out No longer eligible based on patient's age to complete this topic Meningococcal Immunization (ACWY) Aged Out No longer eligible based on patient's age to complete this topic Rotavirus Immunization Aged Out No lo nger eligible based on patient's age to complete this topic Goals Goal Patient Goal Type Associated Problems [...] 6 sessions reduce depression Behavioral [facility] Robbie Mathis LCSW Note: Goal/Objective: Increase coping skills for depression. [...] and or cope with anxiety and depression. Medical Devices Implanted Type Area Jewelry Mechanic Device Identifier Shelf Expiration Date Model / Serial / Lot [employer] Implanted W/Sut Plugs 8fr - [id number] Implanted:Qty : 1 on 09/10/2015 by Shannon Germain MD at [facility] Explanted: (Quantity not on file) IMPLANT Right: Chest CR BARD / BARD BIOPSY 04/05/2017 [id number] / / [id number] Procedures Procedure Name Priority Date/Time Associated Diagnosis Comments CBC WITH AUTO DIFFERENTIAL Routine 12/29/2024 8:32 AM CDT Syncope and collapse Hypotension due to hypovolemia LIPID PANEL Routine 12/29/2024 8:32 AM CDT Type 2 diabetes mellitus without complication, without long-term current use of insulin COMPLETE BLOOD COUNT (CBC) WITH DIFF Routine 12/29/2024 8:32 AM CDT Syncope and collapse Hypotension due to hypovolemia CMP (COMPREHENSIVE METABOLIC PANEL) Routine 12/04/2024 3:02 PM CDT Osteopenia of multiple sites History of colon cancer History of partial mastectomy of right breast THYROID SCREEN WITH REFLEX Routine 12/04/2024 2:31 PM CDT Syncope and collapse Generalized anxiety disorder THYROID SCREEN WITH REFLEX Routine 12/04/2024 2:31 PM CDT Syncope and collapse Generalized anxiety disorder POCT GLYCOSYLATED HEMOGLOBIN Routine 11/06/2024 3:04 PM CDT Type 2 diabetes mellitus without complication, without long-term current use of insulin (HCC) RANCHO SCREENING BILATERAL DIGITAL W CAD W JOHNIE Routine 09/08/2024 4:00 PM CARRY OUT CLERK Encounter for screening mammogram for malignant neoplasm of breast PODIATRY CONSULT 06/02/2021 12:0 0 AM CDT PATHOLOGY CYTOLOGY ANY COMMODITY BUYER Routine 08/17/2016 from Last 3 Months or Most Recently Relevant to Health Maintenance Results * (ABNORMAL) CBC WITH AUTO DIFFERENTIAL (12/29/2024 8:32 AM CDT) WBC 6.56 4.00 - 12.00 10(3)/mcL 12/29/2024 12:44 PM CDT [facility] RBC 5.10 3.80 - 5.30 10(6)/[facility] 12/29/2024 12:44 PM CDT [facility] HEMOGLOBIN (HGB) 13.8 12.0 - 15.8 g/dL 12/29/2024 12:44 PM CDT [facility] HEMATOCRIT (HCT) 45.2 36.0 - 47.0 % 12/29/2024 12:44 PM CDT [facility] MCV 88.6 82.0 - 96.0 fL 12/29/2024 12:44 PM CDT [facility] MCH 27.1 26.0 - 34.0 pg 12/29/2024 12:44 PM CDT [facility] MCHC 30.5(L) 31.0 - 36.0 g/dL 12/29/2024 12:44 PM CDT [facility] PLATELET COUNT 326 140 - 440 10(3)/[facility] 12/29/2024 12:44 PM CDT [facility] RDW 14.0 11.8 - 15.5 % 12/29/2024 12:44 PM CDT [facility] MPV 9.0(L) 9.7 - 12.4 fL 12/29/2024 12:44 PM CDT [facility] NEUTROPHILS 52.1 47.0 - 73.0 % 12/29/2024 12:44 PM CDT [facility] LYMPHOCYTES 33.2 18.0 - 42.0 % 12/29/2024 12:44 PM CDT [facility] MONOCYTES 8.1 4.0 - 12.0 % 12/29/2024 12:44 PM CDT [facility] EOSINOPHILS 5.8(H) 0.0 - 5.0 % 12/29/2024 12:44 PM CDT [facility] BASOPHILS 0.8 0.0 - 1.0 % 12/29/2024 12:44 PM CDT [facility] ABSOLUTE NEUTROPHILS 3.42 1.60 - 7.70 10(3)/mcL 12/29/2024 12:44 PM CDT [facility] ABSOLUTE LYMPHOCYTES 2.18 1.30 - 3.20 10(3)/mcL 12/29/2024 12:44 PM CDT [facility] ABSOLUTE MONOCYTES 0.53 0.20 - 1.00 10(3)/[facility] 12/29/2024 12:44 PM CDT [facility] ABSOLUTE EOSINOPHIL 0.38 0.00 - 0.40 10(3)/[facility] 12/29/2024 12:44 PM CDT [facility] ABSOLUTE BASOPHILS 0.05 0.00 - 0.10 10(3)/[facility] 12/29/2024 12:44 PM CDT [facility] NRBC PER 100 WBC 0 12/30/19 12:44 PM CDT [facility] Blood Venipuncture / Unknown 12/29/2024 8:32 AM CDT 12/29/2024 8:32 AM CDT Adam Kwan [facility] HEMATOLOGY ORDERABLES Final Result [facility] [address] [place] [address] * LIPID PANEL (12/29/2024 8:32 AM CDT) CHOLESTEROL 162 <200 mg/dL 12/29/2024 12:59 PM CDT [facility] TRIGLYCERIDES 114 <150 mg/dL 12/29/2024 12:59 PM CDT [facility] HDL CHOLESTEROL 58 >40 mg/dL 12:59 PM CDT [facility] LDL 81 <130 mg/dL 12/29/2024 12:59 PM CDT [facility] VLDL 23 10 - 50 mg/dL 12/29/2024 12:59 PM CDT [facility] CHOL/HDL RATIO 2.8 0.0 - 4.4 12/29/2024 12:59 PM CDT [facility] NON-HDL CHOLESTEROL 104 <130 mg/dL 12/29/2024 12:59 PM CDT [facility] IS THE PATIENT REQUIRED TO BE FASTING? Yes 12/29/2024 12:59 PM CDT [facility] HAS THE PATIENT BEEN FASTING? Yes 12/29/2024 12:59 PM CDT [facility] Blood Venipuncture / Unknown 12/29/2024 8:32 AM CDT 12/29/2024 8:32 AM CDT us Adam Kwan PAC CHEMISTRY ORDERABLES Final R esult [facility] [address] [place] [address] * (ABNORMAL) CMP (COMPREHENSIVE METABOLIC PANEL) (12/04/2024 3:02 PM CDT) SODIUM 138 136 - 145 mmol/L 12/04/2024 3:33 PM CDT [facility] POTASSIUM 4.2 3.5 - 5.1 mmol/L 12/04/2024 3:33 PM CDT [facility] CHLORIDE 105 98 - 107 mmol/L 12/04/2024 3:33 PM CDT [facility] CO2, VENOUS 24 22 - 30 mmol/L 12/04/2024 3:33 PM CDT [facility] ANION GAP 13.2 <18.0 mmol/L 12/04/2024 3:33 PM CDT [facility] GLUCOSE 93 70 - 99 mg/dL 12/04/2024 3:33 PM CDT [facility] BUN 9(L) 10 - 20 mg/dL 12/04/2024 3:33 PM CDT [facility] CREATININE, BLOOD 0.72 0.60 - 1.00 mg/dL 12/04/2024 3:33 PM CDT [facility] BUN/CREATININE RATIO 13 12 - 20 ratio 12/04/2024 3:33 PM CDT [facility] TOTAL PROTEIN 7.5 6.0 - 8.0 g/dL 12/04/2024 3:33 PM CDT [facility] ALBUMIN 3.9 3.5 - 5.0 g/dL 12/04/2024 3:33 PM CDT [facility] A/G RATIO 1.1 1.0 - 2.2 12/04/2024 3:33 PM CDT [facility] CALCIUM 9.1 8.7 - 10.5 mg/dL 12/04/2024 3:33 PM CDT [facility] T BILI 0.4 0.2 - 1.2 mg/dL 12/04/2024 3:33 PM CDT [facility] SGOT (AST) 19 <43 U/L 12/04/2024 3:33 PM CDT [facility] SGPT (ALT) 21 <56 U/L 12/04/2024 3:33 PM CDT [facility] ALKALINE PHOSPHATASE 126 40 - 150 U/L 12/04/2024 3:33 PM T [facility] IS THE PATIENT REQUIRED TO BE FASTING? No 12/04/2024 3:33 PM CDT [facility] GFR, ESTIMATED >60 >=60 12/04/2024 3:33 PM CDT [facility] Comment: Creatinine Clearance is the preferred criteria for selecting drug dose adjustments in renally impaired patients. The GFR is provided as additional pertinent clinical information. GFR is reported in mL/min/1.73 sq m. Calculation based on the Chronic Kidney Disease Epidemiology Collaboration (CKD- EPI) equation refit without adjustment for race. GFR, EST. >60 >=60 025 3:33 PM CDT [facility] GFR, EST. NONAFRICAN >60 >=60 12/04/2024 3:33 PM T [facility] Blood Venipuncture / Unknown 12/04/2024 3:02 PM CDT 12/04/2024 3:02 PM CDT us Serge Quintero MD CHEMISTRY ORDERABLES Fin al Result Performing Organization Address City/[facility]/ZIP Co de Phone Number [facility] [address] [place] [address] * THYROID SCREEN WITH REFLEX (12/04/2024 2:31 PM CDT) TSH 1.753 0.300 - 5.000 mIU/L 12/04/2024 4:19 PM CDT [facility] Blood Venipuncture / Unknown 12/04/2024 2:31 PM CDT 12/04/2024 3:02 PM CDT us Adam GUIDRY CHEMISTRY ORDERABLES Final R esult Performing Organization Address City/[facility] Co de Phone Number [facility] [address] [place] [address] * POCT GLYCOSYLATED HEMOGLOBIN (11/06/2024 3:04 PM CDT) HGB-A1C 5.6 4 - 6 % Blood 11/06/2024 3:04 PM CDT us Kris Portillo MD POINT OF CARE TESTING (MANUAL) F inal Result * RANCHO SCREENING BILATERAL DIGITAL W CAD W JOHNIE (09/08/2024 4:00 PM CARRY OUT CLERK) Anatomical Region Laterality Modality breast Bilateral Mammography 09/08/2024 4:06 PM CARRY OUT CLERK Narrative 09/09/2024 7:01 AM CARRY OUT CLERK - RANCHO SCREENING BILATERAL DIGITAL W CAD W JOHNIE BILATERAL DIGITAL SCREENING MAMMOGRAM 3D/2D WITH CAD WITH MEDIOLATERAL OBLIQUE CRANIOCAUDAL: 09/08/2024 The study was acquired using digital technology and interpreted from soft copy. Current study was also evaluated with ICAD version 7.2. 2D digital mammographic views, as well as 3D digital tomosynthesis were performed in the CC and MLO projections. CLINICAL: Routine screening. Patient has no complaints. Previous history of breast cancer and colon cancer. No family history of breast cancer. COMPARISONS: Comparison is made to exams dated: 08/11/2023, 04/30/2022, and 01/10/2021 [facility]. BREAST TISSUE:There are scattered areas of fibroglandular density. FINDINGS: There are benign calcifications in both breasts. There also are benign post operative findings in the right breast. No significant masses, calcifications, or other findings are seen in either breast. There has been no significant interval change. IMPRESSION: BENIGN There is no mammographic evidence of malignancy. A 1 year screening mammogram is recommended. A letter will be sent to the patient with these results. The patient will be entered into a reminder system with a target due date of 1 year for her next screening exam. Electronically signed by: Con dia/qamar:09/08/2024 21:43:29 Radial Saw Operator(s): RT Arlette(R)(M), [facility] letter sent: Normal Exam Reading location: [place] Mammogram BI-RADS: Category 2: Benign Procedure Note Con Finnegan MD - 09/09/2024 - RANCHO SCREENING BILATERAL DIGITAL W CAD W JOHNIE BILATERAL DIGITAL SCREENING MAMMOGRAM 3D/2D WITH CAD WITH MEDIOLATERAL OBLIQUE CRANIOCAUDAL: 09/08/2024 The study was acquired using digital technology and interpreted from soft copy. Current study was also evaluated with ICAD version 7.2. 2D digital mammographic views, as well as 3D digital tomosynthesis were performed in the CC and MLO projections. CLINICAL: Routine screening. Patient has no complaints. Previous history of breast cancer and colon cancer. No family history of breast cancer. COMPARISONS: Comparison is made to exams dated: 08/11/2023, 04/30/2022, and 01/10/2021 [facility]. BREAST TISSUE:There are scattered areas of fibroglandular density. FINDINGS: There are benign calcifications in both breasts. There also are benign post operative findings in the right breast. No significant masses, calcifications, or other findings are seen in either breast. There has been no significant interval change. IMPRESSION: BENIGN There is no mammographic evidence of malignancy. A 1 year screening mammogram is recommended. A letter will be sent to the patient with these results. The patient will be entered into a reminder system with a target due date of 1 year for her next screening exam. Electronically signed by: Con Finnegan M.D. ll/penrad:09/08/2024 21:43:29 Radial Saw Operator(s): RT Arlette(R)(M), [facility] letter sent: Normal Exam Reading location: [place] Mammogram BI-RADS: Category 2: Benign us Serge Quintero MD IMG MAMMO ORDERABLES Fin al Result * PODIATRY CONSULT (06/02/2021 12:00 AM CDT) 06/02/2021 us Not On File Provider GENERIC SCAN ORDERS CONSULT Final Result SCAN * PATHOLOGY CYTOLOGY ANY COMMODITY BUYER (08/17/2016) Specimen of unknown material (specimen) us Haim Wilkins PATHOLOGY/CYTOLOGY ORDERABLES Fi nal Result from Last 3 Months or Most Recently Relevant to Health Maintenance Insurance MEDICAID [place] MEDICARE Advance Directives Documents on File Type Date Recorded Patient Computer Numerical Control Operator Expl anation Power of Retail Performance Coach for Health Care 04/22/2018 3:44 PM [facility] PLANNI NG / POA * Full Code (Latest Code Status on File) Date Activated Date Inactivated Comments 08/24/2022 7:21 PM 08/25/2022 8:09 PM CPR-Full Tito atment: FULL ARREST: Attempt Resuscitation/CPR wit intubation and mechanical ventilation. PRE-ARREST: Use entire range of life support measures to stabilize the patient. * Full Code Date Activated Date Inactivated Comments 07/17/2015 8:19 AM 07/20/2015 6:42 PM Full Code: FULL ARREST: Attempt Resuscitation/CPR and use intubation and mechanical ventilation as indicated. PRE-ARREST: Use all measures to stabilize patient. Care Teams Sleeper Cutter Relationship Specialty Start Date End Date Adam Kwan, BREA [address] [place] [address] PCP - General Physician Asset Administrator 08/28/24 Serge Quintero MD Consulting Physician Hematology 07/03/15 Naresh Chandra MD Consulting Physician Radiation Oncology 07/03/15 Espinoza Carcamo DO Consulting Physician Gastroenterology 07/10/15 Veronique Novak MD Consulting Physician Psychiatry 02/14/16 Dex Mejia MD #[address] [address] General Surgery 06/12/16 Haim Wilkins #[address] [address] Consulting Physician Obstetrics & Gynecology 02/22/17 Pam Baig MD [address] [address] Consulting Physician Pain Medicine-Pain Management 03/19/17 Tariq Welch MD #[address] [address] Consulting Physician Orthopaedic Surgery 03/19/17 Fatoumata Cox MD [address] [place] [address] [address] [place] [address] Neuromuscular Medicine 03/19/17 Carlos Logan, MECHANICAL TECHNOLOGIST, ADJUNCT PROFESSOR [address] [place] [address] Nurse Practitioner Advanced Practice Nurse 12/01/22 Kris Portillo MD [address] [phone] Consulting Physician Endocrinology 03/08/24
--- OUTSIDE RECORDS SUMMARY | 2024-12-31 12:22 | XMS_ITS | Encounter Summary ---
Author Organization [facility] Address [address] [place] [address] Phone Care Team Providers Care Hourly Caregiver Name Role Phone LeonSerge MD Unavailable [phone] Naresh Chandra MD Unavailable [phone] Espinoza Carcamo DO Unavailable [phone] Veronique Novak MD Unavailable [phone] Dex Mejia MD Unavailable Haim Wilkins Unavailable Pam Baig MD Unavailable [phone] Tariq Welch MD Unavailable [phone] Fatoumata Cox MD Unavailable Carlos Logan BUSINESS MACHINE MECHANIC, PLATING TANK OPERATOR Unavailable + [phone] Kris Portillo MD Unavailable Adam Kwan Primary Care Provider + [phone] Encounter Details Date Type Department Care Team (Late st Contact Info) Description 12/05/2024 Results Follow[facility]Up [facility] - Primary Care - [place] [address] [place] [address] Adam Kwan, PAC [address] [place] [place] [address] THYROID SCREEN WITH REFLEX Social History Tobacco Use Types Packs/Day Years Used Date Smoking Tobacco: Never Smokeless Tobacco: Never Alcohol Use Standard Drinks/Week Comments No 0 (1 standard drink = 0.6 oz pur e alcohol) [facility] Utilities Answer Date Recorded In the past [...] and Family Not on file 03/10/2024 Attends [employer] Services Not on file 03/10 Active Member [...] Total Score - Questions 1-9 10 08/10 [facility] - Occupational Stress [...] 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 Not on file Not on file documented as of this encounter Plan of Treatment Upcoming Encounters Date Type Department Care Team (Latest Contact Info) Description 01/05/2025 2:30 PM CDT Office Visit [facility] - Primary Care - [place] [address] [place] [address] Adam Kwan, BREA [address] [place] [address] 05/08/2025 3:00 PM CDT Office Visit [facility] - Endocrinology - [place] [address] [place] [address] Kris Portillo MD [address] [address] 06/07/2025 1:00 PM CDT Clinical Support [facility] Oncology Services [address] [place] [address] Serge Quintero MD 0 [place] [address] Discharge Disposition: Discharged to home or Selfcare 12/07/2025 11:40 AM CDT Office Visit [facility] [address] [place] [address] Serge Quintero MD [address] [place] [address] Discharge Disposition: Discharged to home or Selfcare [...] to change Department associated with goal: [facility] Steps to achieve [...] sessions reduce depression Behavioral [facility] Robbie Mathis, TITRATOR Note: Goal/Objective: Increase coping skills for depression. Anticipated Time Frame for Goal Completion: 6 months Goal Reviewed with: patient Readiness to change: Ready to change Department associated with goal: [facility] Steps to achieve [...] Depression Total Score: 10 025 3:13 PM DIRECTOR OF INTEGRATED MARKETING documented as of this encounter Care Teams Hourly Caregiver Relationship Specialty Start Date End Date Adam Kwan, BREA [address] [place] [address] PCP - General Physician C D Stripper 08/28/24 Serge Quintero MD Consulting Physician Hematology 07/03/15 Naresh Chandra MD Consulting Physician Radiation Oncology 07/03/15 Espinoza Carcamo DO Consulting Physician Gastroenterology 07/10/15 Veronique Novak MD Consulting Physician Psychiatry 02/14/16 Dex Mejia MD #[address] [address] General Surgery 06/12/16 Haim Wilkins #[address] [address] Consulting Physician Obstetrics & Gynecology 02/22/17 Pam Baig MD #[address] [address] Consulting Physician Pain Medicine-Pain Management 03/19/17 Tariq Welch MD #[address] [address] Consulting Physician Orthopaedic Surgery 03/19/17 Fatoumata Cox MD [address] [place] [address] [address] [place] [address] Neuromuscular Medicine 03/19/17 Carlos Logan APRN, PLATING TANK OPERATOR [address] [place] [address] Nurse Practitioner Advanced Practice Nurse 12/01/22 Kris Portillo MD [address] [address] Consulting Physician Endocrinology 03/08/24 documented as of this encounter
--- OUTSIDE RECORDS SUMMARY | 2024-12-31 12:22 | XMS_ITS | Encounter Summary ---
Author Organization [facility] Address [address] [place] [address] Phone Care Team Providers Care City Recorder Name Role Phone Serge Quintero MD Unavailable [phone] Naresh Chandra MD Unavailable [phone] Espinoza Carcamo DO Unavailable [phone] Veronique Novak MD Unavailable [phone] Dex Mejia MD Unavailable [phone] Haim Wilkins Unavailable Pam Baig MD Unavailable [phone] Tariq Welch MD Unavailable Fatoumata Cox MD Unavailable Ashley Sweeney AGING ROOM OPERATOR, MEDICAL STAFF MANAGER Primary Care Provider Marquis Mendez MD Unavailable Valorie Oates MD Primary Care Provider + [phone] Carlos Logan APRN, MEDICAL STAFF MANAGER Unavailable + [phone] Milagros Calloway MD Primary Care Provider + [phone] Kris Portillo MD Unavailable Adam Kwan Primary Care Provider + [phone] Encounter Details Date Type Department Care Team (Late st Contact Info) Description 08/27/2022 Telephone [facility] Med Surg [address] [place] [address] Dayanna Adame RN [place] Social History Tobacco Use Types Packs/Day Years [...] 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 No / Unsure 08/28/2022 9:15 AM PROJECT SPECIALIST documented as of this encounter Plan of Treatment Upcoming Encounters Date Type Department Care Team (Latest Contact Info) Description 01/05/2025 2:30 PM CDT Office Visit [facility] - Primary Care - [place] [address] [place] [address] Adam Kwan PAC [address] [place] [address] 05/08/2025 3:00 PM CDT Office Visit [facility] - Endocrinology - [place] [address] [place] [address] Kris Portillo MD [address] [address] 06/07/2025 1:00 PM CDT Clinical Support [facility] Oncology Services [address] [place] [address] Serge Quintero MD 0 [place] [address] Discharge Disposition: Discharged to home or Selfcare 12/07/2025 11:40 AM CDT Office Visit [facility] Oncology Services [address] [place] [address] Serge Quintero MD [address] [place] [address] Discharge Disposition: Discharged to home or Selfcare [...] Ready to change Department associated with goal: [facility] Steps to achieve goal: [...] Ready to change Department associated with goal: [facility] Steps to achieve goal: [...] Respiratory Rule-Out 09/27/2024 09/27/2024 025 2:11 PM PROJECT SPECIALIST COVID - 19 09/27/2024 09/27/2024 09/27/2024 2:09 PM PROJECT SPECIALIST Assessment Noted Time PHQ-9 Depression Total Score: 0 04/14/20 8:00 AM CDT documented as of this encounter Care Teams City Recorder Relationship Specialty Start Date End Date Ashley Sweeney, AGING ROOM OPERATOR, MEDICAL STAFF MANAGER [address] [place] [address] PCP - General Advanced Practice Nurse 12/16/21 Valorie Benitez MD [address] [place] [address] PCP - General Family Medicine 12/24/22 09/13/23 Milagros Calloway MD [address] [place] [address] PCP - General Family Medicine 09/14/23 08/27/24 Adam Kwan PAC [address] [place] [address] PCP - General Physician Group Rooms Coordinator 08/28/24 Serge Quintero MD Consulting Physician Hematology 07/03/15 Naresh Chandra MD Consulting Physician Radiation Oncology 07/03/15 Espinoza Carcamo DO Consulting Physician Gastroenterology 07/10/15 Veronique Novak MD Consulting Physician Psychiatry 02/14/16 Dex Mejia MD #[address] [address] General Surgery 06/12/16 Haim Wilkins #[address] [address] Consulting Physician Obstetrics & Gynecology 02/22/17 Pam Baig MD #[address] [address] Consulting Physician Pain Medicine-Pain Management 03/19/17 Tariq Welch MD #[address] [address] Consulting Physician Orthopaedic Surgery 03/19/17 Fatoumata Cox MD [address] [place] [address] [address] [place] [address] Neuromuscular Medicine 03/19/17 Marquis Mendez MD [address] [place] [address] Consulting Physician Cardiovascular Disease - Cardiology 08/20/22 09/27/24 Carlos Logan APRN, CNP [address] [facility] [place] [address] Nurse Practitioner Advanced Practice Nurse 12/01/22 Kris Portillo MD [address] [phone] Consulting Physician Endocrinology 03/08/24 documented as of this encounter
--- OUTSIDE RECORDS SUMMARY | 2024-12-31 12:23 | XMS_ITS | Encounter Summary ---
Author Organization [facility] Address [address] [place] [address] Phone Care Team Providers Care Adapted Physical Education Specialist Name Role Phone QuinteroSerge MD Unavailable [phone] Naresh Chandra MD Unavailable [phone] Espinoza Carcamo DO Unavailable [phone] Veronique Novak MD Unavailable [phone] Dex Mejia MD Unavailable [phone] Haim Wilkins Unavailable Pam Baig MD Unavailable [phone] Tariq Welch MD Unavailable Fatoumata Cox MD Unavailable Francis Khan [facility] Primary Care Provider Modesta Julio RN Unavailable Unavailable Lorena Day Unavailable Unavailab [place] PHARM TECH, CVOR NURSE Primary Care Provider Marquis Mendez MD Unavailable Valorie Oates MD Primary Care Provider + [phone] Carlos Logan APRN, CVOR NURSE Unavailable + [phone] Milagros Calloway MD Primary Care Provider + [phone] Kris Portillo MD Unavailable Adam Kwan Primary Care Provider Reason for Visit * Reason Comments Medication Refill Encounter Details Date Type Department Care Team (Late st Contact Info) Description 12/02/2020 Refill [facility] - Primary Care - [place] [address] [place] [address] Francis Khan PAC Medication Refill Social History Tobacco Use Types Packs/Day Years Used Date Smoking Tobacco: Never Smokeless Tobacco: Never Alcohol Use Standard Drinks/Week Comments No 0 (1 standard drink = 0.6 oz pur e alcohol) PHQ-2 Answer Date Recorded PHQ-2 Score 0 04/14/2019 Sexually Active Control Partners Comments Not Currently Male Comments No Sex and Gender Information Value Date Recorded Sex Assigned at Not on file Legal Sex Female 10:18 PM CDT Gender Identity Not on file Sexual Orientation Not on file 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 No / Unsure 11/18/2020 11:37 AM CDT documented as of this encounter Miscellaneous Notes * Telephone Encounter - Francis Khan PAC - 12/04/2020 12:26 PM CDT Rx refill approved. * Telephone Encounter - Ani [place] RN - 12/03/2020 2:17 PM CDT Per nursing clinical judgement, provider to review and approve the medication(s) order(s) if appropriate. Requested Prescriptions Pending Prescriptions Disp Refills famotidine (PEPCID) 20 MG Tablet [Pharmacy Med Name: FAMOTIDINE 20 MG TAB 20 Tablet] 60 Tablet 0 Sig: TAKE 2 TABS BY MOUTH DAILY. [facility] Gastroenterology: Antiulcer - H2 Antagonists Passed - 12/02/2020 5:09 PM Passed - Valid encounter within last 12 months Past Office Visits Recent Outpatient Visits 1 month ago Acute hemorrhoid [facility] Francis Khan PAC 3 months ago Major depressive disorder, recurrent episode, moderate with anxious distress (HCC) [facility] Francis Khan PAC 6 months ago Class 3 severe obesity with body mass index (BMI) of 40.0 to 44.9 in adult, unspecified obesity type, unspecified whether serious comorbidity present (HCC) [facility] Francis Khan PAC 7 months ago Arthritis [facility] Cj Carpenter MD 10 months ago Left carpal tunnel syndrome [facility] Cj Carpenter MD Upcoming Appointments Future Appointments In 3 days Stephane Landaverde MD [facility] General Surgery [facility] In 2 months Damien Stovall MD [facility], [facility] In 2 months Serge Quintero MD [facility], [facility] In 2 months [facility] CC INFUSION CHR2 [facility], [facility] In 4 months [facility] months Damien Stovall MD [facility], [facility] ELECTRIC MOTOR REPAIRING SUPERVISOR - Recent and Past Visits Recent Visits Date Type Provider Dept 11/01/20 Office Visit Francis Khan PAC [facility] 08/29/20 Office Visit Francis Khan PAC [facility] 05/24/20 Office Visit Francis Khan PAC [facility] [address] 04/19/20 Office Visit C[facility] [place] 02/02/20 Office Visit jC Carpenter MD [facility] 10/17/19 Office Visit Francis Khan PAC [facility] 10/06/19 [facility] Showing recent visits within past 460 days with a meds authorizing provider and meeting all other requirements Future Appointments No visits were found meeting these conditions. Showing future appointments within next 90 days with a meds authorizing provider and meeting all other requirements documented in this encounter Plan of Treatment Upcoming Encounters Date Type Department Care Team (Latest Contact Info) Description 01/05/2025 2:30 PM CDT Office Visit [facility] - Primary Care - [place] [address] [place] [address] Adam Kwan PAC [address] [place] [address] 05/08/2025 3:00 PM CDT Office Visit [facility] - Endocrinology - [place] [address] [place] [address] Kris Portillo MD #[address] [address] 06/07/2025 1:00 PM CDT Clinical Support [facility] Oncology Services [address] [place] [address] Serge Quintero MD 0 [place] [address] Discharge Disposition: Discharged to home or Selfcare 12/07/2025 11:40 AM CDT Office Visit [facility] On[facility] Services [address] [place] [address] Serge Quintero MD 0 [place] [address] Discharge Disposition: Discharged to home or Selfcare documented as of this encounter Visit Diagnoses Not on filedocumented in this encounter Additional Health Concerns Infection Onset Date Last Indicated Resolved Time COVID - 19 08/29/2021 08/29/2021 08/30/2021 6:41 PM BLAST FURNACE AUXILIARIES SUPERVISOR COVID - 19 Confirmed 08/29/2021 08/29/2021 022 12:16 AM BLAST FURNACE AUXILIARIES SUPERVISOR Respiratory Rule-Out 09/27/2024 09/27/2024 025 2:11 PM BLAST FURNACE AUXILIARIES SUPERVISOR COVID - 19 09/27/2024 09/27/2024 09/27/2024 2:09 PM BLAST FURNACE AUXILIARIES SUPERVISOR Assessment Noted Time PHQ-9 Depression Total Score: 0 04/14/20 19 8:00 AM CDT documented as of this encounter Care Teams Adapted Physical Education Specialist Relationship Specialty Start Date End Date Francis Khan, BREA [address] [facility] [address] [place] [address] PCP - General Physician Amusement Park Entertainer 08/29/20 12/15/21 Ashley Sweeney, PHARM TECH, CVOR NURSE [address] [place] [id number] PCP - General Advanced Practice Nurse 12/16/21 Valorie Benitez MD [address] [place] [id number] PCP - General Family Medicine 12/24/22 09/13/23 Milagros Calloway MD [address] [place] [id number] PCP - General Family Medicine 09/14/23 08/27/24 Adam Kwan, PAC [address] [place] [phone] PCP - General Physician Amusement Park Entertainer 08/28/24 Serge Quintero MD Consulting Physician Hematology 07/03/15 Naresh Chandra MD Consulting Physician Radiation Oncology 07/03/15 Espinoza Carcamo DO Consulting Physician Gastroenterology 07/10/15 Veronique Novak MD Consulting Physician Psychiatry 02/14/16 Dex Mejia MD #[address] [address] General Surgery 06/12/16 Haim Wilkins #[address] [address] Consulting Physician Obstetrics & Gynecology 02/22/17 Pam Baig MD #[address] [address] Consulting Physician Pain Medicine-Pain Management 03/19/17 Tariq Welch MD #[address] [address] Consulting Physician Orthopaedic Surgery 03/19/17 Fatoumata Cox MD [address] [place] [address] [address] [place] [address] Neuromuscular Medicine 03/19/17 Modesta Bojorquez RN [place] [employer] 11/10/21 05/20/22 Lorena Day LSW [place] [employer] 11/12/21 05/20/22 Marquis Mendez MD [address] [place] [address] Consulting Physician Cardiovascular Disease - Cardiology 08/20/22 09/27/24 Carlos Logan APRN, CVOR NURSE [address] [place] [address] Nurse Practitioner Advanced Practice Nurse 12/01/22 Kris Portillo MD [address] [address] Consulting Physician Endocrinology 03/08/24 documented as of this encounter
--- OUTSIDE RECORDS SUMMARY | 2024-12-31 12:23 | XMS_ITS | Encounter Summary ---
Author Organization [facility] Address [address] [place] [address] Phone Care Team Providers Care Cost Clerk Name Role Phone Serge Quintero MD Unavailable [phone] Naresh Chandra MD Unavailable [phone] Espinoza Carcamo DO Unavailable [phone] Veronique Novak MD Unavailable [phone] Dex Mejia MD Unavailable [phone] Haim Wilkins Unavailable Pam Baig MD Unavailable [phone] Tariq Welch MD Unavailable Fatoumata Cox MD Unavailable Marquis Mendez MD Unavailable Carlos Ramsay APRN, INSPECTOR TESTER SORTER Unavailable + [phone] Milagros Calloway MD Primary Care Provider + [phone] Kris Portillo MD Unavailable Adam Kwan Primary Care Provider + [phone] Reason for Visit * Reason Comments Medication Refill Encounter Details Date Type Department Care Team (Late st Contact Info) Description 10/07[facility] [place] [address] [place] [phone] Milagros Calloway MD [address] 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 Requested Prescriptions Pending Prescriptions Disp Refills meloxicam (MOBIC) 15 MG Tablet [Pharmacy Med Name: MELOXICAM 15MG TABLET] 90 Tablet 0 Sig: TAKE 1 TABLET BY MOUTH DAILY. NSAIDs Protocol Passed - 10/07/2023 12:25 PM Passed - Normal serum creatinine in past 12 months CREATININE, BLOOD Date Value Ref Range Status 05/27/2023 0.81 0.60 - 1.00 mg/dL Final Passed - Visit with relevant provider in past 12 months or upcoming 90 days Recent Visits Date Type Provider Dept 09/14/23 Office Visit Milagros Calloway MD [facility] 04/16/23 Office Visit Valorie Benitez MD [facility] 12/24/22 Office Visit Valorie Benitez MD [facility] 10/12/22 Office Visit Ashley Sweeney, DATA ENTRY SUPERVISOR, INSPECTOR TESTER SORTER [facility] Showing recent visits within past 365 days and meeting all other requirements Future Appointments No visits were found meeting these conditions. Showing future appointments within next 90 days and meeting all other requirements Passed - No matching NSAID med order in past 45 days No matching medication orders between 08/23/2023 1:06 PM and 10/07/2023 1:06 PM Passed - AST less than 55 or ALT less than 90 in past 12 months SGOT (AST) Date Value Ref Range Status 05/27/2023 23 5 - 34 U/L Final SGPT (ALT) Date Value Ref Range Status 05/27/2023 29 0 - 55 U/L Final Passed - HGB greater than 10 or HCT greater than 30 in past 12 months HEMOGLOBIN (HGB) Date Value Ref Range Status 05/27/2023 13.3 12.0 - 15.8 g/dL Final HEMATOCRIT (HCT) Date Value Ref Range Status 05/27/2023 43.1 36.0 - 47.0 % Final ONAL SALES EXECUTIVE documented in this encounter Plan of Treatment Upcoming Encounters Date Type Department Care Team (Latest Contact Info) Description 01/05/2025 2:30 PM CDT Office Visit [facility] - Primary Care - [place] [address] [place] [phone] Adam Kwan, BREA [address] [place] [address] 05/08/2025 3:00 PM CDT Office Visit [facility] - Endocrinology - [place] [address] [place] [address] Kris Portillo MD [address] [address] 06/07/2025 1:00 PM CDT Clinical Support [facility] Oncology Services [address] [place] [address] Serge Quintero MD [address] [place] [address] Discharge Disposition: Discharged to home or Selfcare 12/07/2025 11:40 AM CDT Office Visit [facility] Oncology Services [address] [place] [address] Serge Quintero MD [address] [place] [address] Discharge Disposition: Discharged to home or Selfcare [...] Ready to change Department associated with goal: [facility] Steps to achieve [...] sessions reduce depression Behavioral Health Robbie Mathis, BATTER DEPOSITOR Note: Goal/Objective: Increase coping skills for depression. Anticipated Time Frame for Goal Completion: 6 months Goal Reviewed with: patient Readiness to change: Ready to change Department associated with goal: [facility] Steps to achieve [...] Respiratory Rule-Out 09/27/2024 09/27/2024 025 2:11 PM NATIONAL SALES EXECUTIVE COVID - 19 09/27/2024 09/27/2024 09/27/2024 2:09 PM NATIONAL SALES EXECUTIVE Assessment Noted Time PHQ-9 Depression Total Score: 0 04/14/20 8:00 AM CDT documented as of this encounter Care Teams Cost Clerk Relationship Specialty Start Date End Date Milagros Calloway MD [address] [place] [address] PCP - General Family Medicine 09/14/23 08/27/24 Adam Kwan PAC [address] [place] [address] PCP - General Physician Sales Porter 08/28/24 Serge Quintero MD Consulting Physician Hematology 07/03/15 Naresh Chandra MD Consulting Physician Radiation Oncology 07/03/15 Espinoza Carcamo DO Consulting Physician Gastroenterology 07/10/15 Veronique Novak MD Consulting Physician Psychiatry 02/14/16 Dex Mejia MD [address] [address] General Surgery 06/12/16 Franky Haim [address] [address] Consulting Physician Obstetrics & Gynecology 02/22/17 Pam Baig MD [address] [address] Consulting Physician Pain Medicine-Pain Management 03/19/17 Tariq Welch MD [address] [address] Consulting Physician Orthopaedic Surgery 03/19/17 Fatoumata Cox MD [address] [place] [address] [address] [place] [address] Neuromuscular Medicine 03/19/17 Marquis Mendez MD [address] [place] [address] [address] [place] [address] Consulting Physician Cardiovascular Disease - Cardiology 08/20/22 09/27/24 Carlos Logan, DATA ENTRY SUPERVISOR, INSPECTOR TESTER SORTER [address] [place] [address] Nurse Practitioner Advanced Practice Nurse 12/01/22 Kris Portillo MD [address] [phone] Consulting Physician Endocrinology 03/08/24 documented as of this encounter
--- OUTSIDE RECORDS SUMMARY | 2024-12-31 12:23 | XMS_ITS | Encounter Summary ---
Author Organization [facility] Address [address] [place] [address] Phone Care Team Providers Care Combat Control Manager Name Role Phone QuinteroSerge MD Unavailable [phone] Naresh Chandra MD Unavailable [phone] Espinoza Carcamo DO Unavailable [phone] Veronique Novak MD Unavailable [phone] Dex Mejia MD Unavailable [phone] Haim Wilkins Unavailable Pam Baig MD Unavailable [phone] Tariq Welch MD Unavailable [phone] Fatoumata Cox MD Unavailable Francis Khan [facility] Primary Care Provider Modesta Julio RN Unavailable Unavailable Lorena Day Unavailable Unavailab [place] SETTER OUT, ELECTRICIAN YARD Primary Care Provider Marquis Mendez MD Unavailable Valorie Oates MD Primary Care Provider + [phone] Carlos Logan APRN, ELECTRICIAN YARD Unavailable + [phone] Milagros Calloway MD Primary Care Provider + [phone] Kris Portillo MD Unavailable Adam Kwan Primary Care Provider [phone] Reason for Visit * Reason Comments Medication Refill Encounter Details Date Type Department Care Team (Late st Contact Info) Description [facility] [address] [place] [phone] Serge Quintero MD [address] [place], [place] [id number] Medication Refill Social History Tobacco Use Types Packs/Day Years Used Date Smoking Tobacco: Never Smokeless Tobacco: Never Alcohol Use Standard Drinks/Week Comments No 0 (1 standard drink = 0.6 oz pur e alcohol) PHQ-2 Answer Date Recorded PHQ-2 Score 0 04/14/2019 Education Answer Date Recorded What is the [...] 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 No / Unsure 08/28/2021 9:20 PM BUNDLE HELPER documented as of this encounter Miscellaneous Notes * Telephone Encounter - Eula Bojorquez, RN - 08/26/2021 2:53 PM CST Refilled anastrazole LE HELPER documented in this encounter Plan of Treatment Upcoming Encounters Date Type Department Care Team (Latest Contact Info) Description 01/05/2025 2:30 PM CDT Office Visit [facility] - [place] - [place] [address] [place] [address] Adam Kwan, [facility] [address] [place] [phone] 05/08/2025 3:00 PM CDT Office Visit [facility] - Endocrinology [facility] [address] [facility] [place] [address] Kris Portillo MD [address] [address] 06/07/2025 1:00 PM CDT Clinical Support [facility] Oncology Services [address] [place] [phone] Serge Quintero MD [address] [place] [address] Discharge Disposition: Discharged to home or Selfcare 12/07/2025 11:40 AM CDT Office Visit [facility] Oncology Services [address] [place] [phone] Serge Quintero MD [address] [place] [address] Discharge Disposition: Discharged to home or Selfcare documented as of this encounter Visit Diagnoses Diagnosis Hx of breast cancer Personal history of malignant neoplasm of breast documented in this encounter Additional Health Concerns Infection Onset Date Last Indicated Resolved Time COVID - 19 08/29/2021 08/29/2021 08/30/2021 6:41 PM BUNDLE HELPER COVID - 19 Confirmed 08/29/2021 08/29/2021 022 12:16 AM BUNDLE HELPER Respiratory Rule-Out 09/27/2024 09/27/2024 025 2:11 PM BUNDLE HELPER COVID - 19 09/27/2024 09/27/2024 09/27/2024 2:09 PM BUNDLE HELPER Assessment Noted Time PHQ-9 Depression Total Score: 0 04/14/20 19 8:00 AM CDT documented as of this encounter Care Teams Combat Control Manager Relationship Specialty Start Date End Date Francis Khan PAC [address] [place] [address] [address] [place] [address] PCP - General Physician Nursing Coordinator 08/29/20 12/15/21 Ashley Sweeney, SETTER OUT, ELECTRICIAN YARD [address] [place] [address] PCP - General Advanced Practice Nurse 12/16/21 Valorie Benitez MD [address] [place], [place] [id number] PCP - General Family Medicine 12/24/22 09/13/23 Milagros Calloway MD [address] [place] [address] PCP - General Family Medicine 09/14/23 08/27/24 Adam Kwan PAC [address] [place] [phone] PCP - General Physician Nursing Coordinator 08/28/24 Serge Quintero MD Consulting Physician Hematology 07/03/15 Naresh Chandra MD Consulting Physician Radiation Oncology 07/03/15 Espinoza Carcamo DO Consulting Physician Gastroenterology 07/10/15 Veronique Novak MD Consulting Physician Psychiatry 02/14/16 Dex Mejia MD [address] [address] General Surgery 06/12/16 Franky Haim [address] [address] Consulting Physician Obstetrics & Gynecology 02/22/17 Pam Baig MD [address] [address] Consulting Physician Pain Medicine-Pain Management 03/19/17 Tariq Welch MD [address] [address] Consulting Physician Orthopaedic Surgery 03/19/17 Fatoumata Cox MD [address] [place] [address] [address] [place] [id number] Neuromuscular Medicine 03/19/17 Modesta Bojorquez RN [place] Poultry Husbandry Teacher 11/10/21 05/20/22 Lorena Day, DAIRY LAB TECHNICIAN [place] Poultry Husbandry Teacher 11/12/21 05/20/22 Marquis Mendez MD [address] [place] [address] Consulting Physician Cardiovascular Disease - Cardiology 08/20/22 09/27/24 Carlos Logan, SETTER OUT, ELECTRICIAN YARD [address] [place] [address] Nurse Practitioner Advanced Practice Nurse 12/01/22 Kris Portillo MD [address] [phone] Consulting Physician Endocrinology 03/08/24 documented as of this encounter
--- OUTSIDE RECORDS SUMMARY | 2024-12-31 12:23 | XMS_ITS | Clinical Summary ---
Author Organization [facility] Address [address] [place] [address] Care Team Providers Care Hydraulics Teacher Name Role Phone Valorie Benitez MD Primary Care Provider [phone] Allergies Active Allergy Reactions Criticality Noted Date Comments Adhesive Tape-Silicones Blisters High Armodafinil Nausea only Low 03/08/2017 Betadine Surgi-Prep Hives Medium 07/06/2023 Cephalexin Nausea & Vomiting Low 06/24/2020 Penicillins Anaphylaxis,Hives High Medications venlafaxine XR (EFFEXOR-XR) 150 mg 24 hr capsule take 1 capsule (150MG) by oral route every day 0 07/05/20 12 Active hydrOXYzine (ATARAX) 25 mg tablet Take 1 tablet (25 mg total) by mouth as needed for anxiety 03/19/20 17 Active anastrozole (ARIMIDEX) 1 mg tablet Take 1 tablet (1 mg total) by mouth nightly Active albuterol HFA (PROVENTIL HFA,VENTOLIN HFA,PROAIR HFA) 90 mcg/actuation inhaler Inhale 2 puffs as needed for wheezing or shortness of breath Active ARIPiprazole (ABILIFY) 15 mg tablet Take 1 tablet (15 mg total) by mouth nightly Active aspirin 81 mg enteric coated tabletIndications :Deep Vein Thrombosis Prevention Take 1 tablet (81 mg total) by mouth 2 (two) times a day 60 tablet 09/02/19 23 Active pregabalin (LYRICA) 75 mg capsule Take 1 capsule (75 mg total) by mouth 2 (two) times a day for 14 days 28 capsule 09/02/19 23 Active venlafaxine (EFFEXOR) 75 mg tablet Take 1 tablet (75 mg total) by mouth 2 (two) times a day Active Gemtesa 75 mg tablet 03/06/20 23 Active cyclobenzaprine (FLEXERIL) 10 mg tablet Take 1 tablet (10 mg total) by mouth 04/16/20 23 Active glipiZIDE XL (GLUCOTROL XL) 5 mg 24 hr tablet Take 1 tablet (5 mg total) by mouth daily 03/10/20 24 Active meloxicam (MOBIC) 15 mg tablet 01/25/20 24 Active triamcinolone (KENALOG) 0.1 % cream 03/13/20 24 Active hydroCHLOROthiazi de 12.5 mg tablet 01/14/20 24 Active Mounjaro 2.5 mg/0.5 mL pen injector 04/03/20 24 Active famotidine (PEPCID) 20 mg tablet Take 1 tablet (20 mg total) by mouth nightly 90 tablet 3 06/20/[address] (PROTONIX) 40 mg EC tablet Take 1 tablet (40 mg total) by mouth 2 (two) times a day 180 tablet 10/12/19 25 Active ondansetron ODT (ZOFRAN-ODT) 4 mg disintegrating tablet Take 1 tablet (4 mg total) by mouth 4 (four) times a day as needed for nausea or vomiting 20 tablet 11 10/12/19 25 Active gabapentin (NEURONTIN) 400 mg capsule TAKE 1 CAPSULE (400 MG TOTAL) BY MOUTH TWO (2) (TWO) TIMES a DAY 60 capsule 2 11/01/19 25 Active solriamfetoL (Sunosi) 150 mg tablet Take 1 tablet (150 mg total) by mouth daily 30 tablet 1 12/08/19 25 Active dextroamphetamine -amphetamine (ADDERALL) 30 mg tablet TAKE 1 TABLET (30 MG TOTAL) BY MOUTH DAILY 30 tablet 12/14/19 25 Active solriamfetoL (Sunosi) 150 mg tablet Take 1 tablet (150 mg total) by mouth daily 30 tablet 1 09/14/19 25 2024 Discontinued(R eorder) dextroamphetamine -amphetamine (ADDERALL) 30 mg tablet TAKE 1 TABLET (30 MG TOTAL) BY MOUTH DAILY 30 tablet 11/15/19 2024 Discontinued Active Problems Problem Noted Date Diagnosed Date Severe obesity 10/24/2024 Body mass index 40.0-44.9, adult ([facility]) 10/24 Colon cancer screening 03/27/2024 Complex sleep apnea syndrome 08/03/2023 Memory loss 02/08/2023 Primary osteoarthritis of right knee 09/01/2022 Primary osteoarthritis of left knee 06/16/2022 Gastroesophageal reflux disease 06/03/2021 Assessment & Plan (06/03/2021 2:25 PM CDT): Continue prilosec and pepcid and return prn 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 She will continue this for another 5-7 days. Only restrictions going forward is no heavy lifting. She will call us back with any questions or concerns Left lower quadrant pain 05/15/2021 Assessment & Plan (05/15/2021 8:07 AM CDT): Given the patient's obesity a clear hernia cannot be palpated. Her tenderness seems to be focused over her pannus fold overlying her ASIS. Imaging performed at an outside hospital did not demonstrate any hernia. I favor that this pain is secondary to the weight of her abdominal wall and it rubbing overlying her hip bone. However I am going to obtain the CT results so that I am a load the disc and review the images myself. Then we will discuss with the patient further course of action. Urinary retention 11/12/2020 Diarrhea following gastrointestinal surgery 10/09 Prolapsed internal hemorrhoids, grade 3 11/06/19 21 Closed displaced fracture of neck of right radiu s 06/18/2020 Overview (06/18/2020): Added automatically from request for surgery [id number] History of partial mastectomy of right breast Overview (05/19/2022): Overview: 11/23/2014 in conjunction with a right axillary sentinel lymph node biopsy. 11/23/2014 in conjunction with a right axillary sentinel lymph node biopsy. Status post lymph node biopsy 07/29/2017 Overview (05/19/2022): Overview: Right axillary sentinel lymph node biopsy 11/23/2014 in conjunction with a right partial mastectomy. Right axillary sentinel lymph node biopsy 11/23/2014 in conjunction with a right partial mastectomy. Status post right hemicolectomy 07/29/2017 Overview (05/19/2022): Overview: Right hemicolectomy 07/16/2015. Right hemicolectomy 07/16/2015. Osteopenia of multiple sites 06/02/2017 Overview (05/19/2022): Prolia management Restless leg syndrome 05/27/2017 Morbid obesity with BMI of 40.0-44.9, adult 05/09 Primary osteoarthritis of both knees 05/27/2017 Mass of breast 10/06/2016 History of colon cancer 06/12/2016 Overview (05/19/2022): Overview: Stage IIIA ([id number]) adenocarcinoma of the ascending colon. Right hemicolectomy 07/16/2015. Began adjuvant postoperative chemotherapy September 2015 and received 10 cycles of FOLFOX which she completed January 2016. She declined the final 2 prescribed cycles because of mucositis symptoms. Stage IIIA ([id number]) adenocarcinoma of the ascending colon. Right hemicolectomy 07/16/2015. Began adjuvant postoperative chemotherapy September 2015 and received 10 cycles of FOLFOX which she completed January 2016. She declined the final 2 prescribed cycles because of mucositis symptoms. 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 She completed right breast radiotherapy 03/11/2015. She was not recommended to receive chemotherapy but was placed on anastrozole. 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 She completed right breast radiotherapy 03/11/2015. She was not recommended to receive chemotherapy but was placed on anastrozole. Constipation 09/12/2012 Overview (11/12/2016): Constipation Narcolepsy 07/05/2012 Overview (11/12/2016): Narcolepsy Plantar fasciitis 07/05/2012 Overview (11/12/2016): Plantar fasciitis Asthma 07/05/2012 Overview (11/12/2016): Asthma Bipolar I disorder 07/05/2012 Overview (11/12/2016): Bipolar 1 disorder Seizure 07/05/2012 Overview (11/12/2016): Seizures Osteoarthritis 07/05/2012 Overview (11/12/2016): Osteoarthritis Mixed anxiety depressive disorder 07/05/2012 Overview (11/13/2016): Anxiety and depression Periodic limb movement disorder 08/24/2011 Overview (11/12/2016): Periodic limb movement disorder Idiopathic hypersomnia without long sleep time 0 08/24/2011 Overview (11/12/2016): Idiopathic hypersomnia without long sleep time Adiposity 08/24/2011 Overview (11/13/2016): Obesity Abnormal involuntary movement 08/24/2011 Overview (11/13/2016): Abnormal involuntary movements Encounters Date Type Department Care Team Description 11/24/2024 Telephone [facility] [address] [place] [address] Fatoumata Cox MD 11/07/2024 Telephone [facility] [address] [place] [address] Fatoumata Cox MD 10/24/2024 1:15 PM CDT Office Visit [facility] [address] [place] [address] Fatoumata Cox MD Postural hypotension (Primary Dx); Complex sleep apnea syndrome; Myoclonic jerking; Restless leg syndrome; Severe obesity (HCC); Body mass index 40.0-44.9, adult (CMS/HCC) (HCC) 10/11/2024 10:00 AM TERMINAL WORKER Office Visit [facility] at [address] [place] [address] Faustino Thomas NP Gastroesophageal reflux disease without esophagitis (Primary Dx); Nausea without vomiting; Medication side effect; NSAID long-term use; History of colon cancer; Colon cancer screening; Status post right hemicolectomy from Last 3 Months Immunizations Immunization Administration Dates Next Due Influenza, Quadrivalent, Spl it, Preservative Free, Intramuscular 04/16/2023,06/30/2022,04/21/2021,04/19,04/14/2019,04/22/2018,07/08/2016 Influenza, Trivalent, Preser vative Free, Intramuscular 08/31/2024 Pneumococcal Conjugate Pcv20 06/30/2022 Pneumococcal Polysaccharide PPV23 02/01/2013 Tdap 08/28/2016 Surgical History Surgery Date Site/Laterality Comments SECTION 1985, 1986 MASTECTOMY, PARTIAL 08/09/2013 - 08/08/2014 Right COLECTOMY 08/09/2014 - 08/08/2015 partial HYSTERECTOMY 08/09/2009 - 08/08/2010 CHOLECYSTECTOMY 08/09/2007 - 08/08/2008 ULNAR TUNNEL RELEASE 08/09/2019 - 08/08/2020 Left carpal tunnel release and cyst removal REPLACEMENT TOTAL KNEE Left TOTAL KNEE ARTHROPLASTY Bilateral LUMBAR PUNCTURE WO INJECTION , DIAGNOSTIC 04/15/2023 N/A COLONOSCOPY 08/09/2018 - 08/08/2019 COLONOSCOPY 07/22/2023 Medical History Medical History Date Comments Bipolar II disorder (HCC) Bipola r II Seizure disorder (HCC) Seizure d isorder, none since 2012 Arthritis Arthritis Motion sickness Breast cancer (HCC) 2013 right, [place] wi th lumpectomy and radiation Colon cancer (HCC) 2014 [place] with parti al colectomy and chemo Narcolepsy GERD (gastroesophageal reflu x disease) well controlled Anxiety Bladder infection 06/09/2020 now resolved Restless leg OAB (overactive bladder) Asthma well controlled Seasonal allergies Bipolar disorder (HCC) Depression Gastric reflux Syncope Dysphagia TAVON (obstructive sleep apnea) 08/03/2023 Family History Medical History Relation Name Comments Cancer Father Heart disease Father heart disease; Lung disease Father lung disease; Transient ischemic attack Father Hypertension Mother Hypertension; Alzheimer's disease Neg Hx Anesthesia problems Neg Hx Dementia Neg Hx Relation Name Status Comments Father Mother Social History Tobacco Use Types Packs/Day Years Used Date Smoking Tobacco: Never Smokeless Tobacco: Never Tobacco Cessation:Counseling Given: Not Answered Alcohol Use Standard Drinks/Week Comments No 0 (1 standard drink = 0.6 oz pur e alcohol) AUDIT-C Answer Date Recorded Q1: How often do you have a drink containing alc ohol? Never 03/27/2024 Average Number of Drinks Not on file 024 Frequency of Binge Drinking Not on file 08/1 04/2024 Personal Safety Answer Date Recorded Have you ever been in or are you currently in a harmful physical or emotional relationship or is someone making you feel afraid or unsafe? 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2 oz) 10/24/2024 12:59 PM CDT Height 154.9 cm (5' 0.98) 10/24/2024 12:59 PM C DT Body Mass Index 40.3 10/24/2024 12:59 PM CDT Plan of Treatment Health Maintenance Due Date Last Done Comments Depression Screening 1965 Hepatitis C Screening 1965 Hepatitis B Screening 1981 Regular Well Visit/Exam 18-64 1981 Zoster Vaccine (1 of 2) 1982 Covid-19 Vaccine (2 - Jansse n risk series) 11/09/2020 10/12/2020 Breast Cancer Screening-Mammogram 09/08/2025 09/08/2024, 09/08/2024, 08/11/2023, Additional history exists DTaP/Tdap/Td Vaccine (2 - Td or Tdap) 08/28/2026 08/28/2016 Colon Cancer Screening-Colonoscopy 07/22/2033 07/22/2023 Pneumococcal vaccine <65 Completed 06/30/2022, 01/08 Colon Cancer Screening-CT Colonography Discontinued 07/22/2023 Colon Cancer Screening-DNA Stool Discontinued 07/22/20 Colon Cancer Screening-FIT Discontinued 07/22/2023 Colon Cancer Screening-Sigmoidoscopy Discontinued 07/22/2023 Influenza Vaccine Completed 08/31/2024, , 06/30/2022, Additional history exists Medical Devices Implanted Type Area Miller Helper Device Identifier Shelf Expiration Date Model / Serial / Lot [employer] Simplex P Full Dose Radiopaque Preblend Cement Bone Tobramycin 6197-9-010 - [id number] Implanted:Qty: 3 on 06/16/2022 by Reg Plummer MD at [facility] Bone Cement Left: Knee [employer] 07/08/2023 6197-9-010 / / [id number] [employer] [id number] Head Radial 20mm Acumed Cntr Elbow Right [facility] Solution 2 - [id number] Implanted:Qty: 1 on 2020 by Dakotah Quiroga MD at [facility] Right: Radius [employer] [id number] 09/05/2026 [id number] / / [id number] Ac[employer] Inc [id number] 2mm 25mm 8mm Anatomic Total Thread Hole Grit Blast Surface Elbow - [id number] Implanted:Qty: 1 on 2020 by Dakotah Quiroga MD at [facility] [place] Right: Radius [employer] [id number] 03/30/2024 [id number] / / [id number] Medtronic Inc [id number] Progrip 15x9cm Self Modular Set Crew Member Rectangle Mesh Surgical Polyester Hernia - [id number] Implanted:Qty: 1 on 06/16/2021 by Zhang Fletcher MD at [facility] Left: Abdomen Medtronic Inc 05/08/2025 [id number] / / [id number] Depuy Orth[employer]ed[employer] Inc Attune S+ Cement Fix Bearing Knee 3 Baseplate Tibial [id number] - [id number] Implanted:Qty: 1 on 06/16/2022 by Rge Plummer MD at [facility] Left: Knee [employer] Inc [id number] 07/08/2031 [id number] / / [id number] [employer] Inc Attune Cemented Cruciate Retaining Knee Left 5 Narrow Component [id number] - [id number] Implanted:Qty: 1 on 06/16/2022 by Reg Plummer MD at [facility] Left: Knee [employer] Inc [id number] 02/06/2032 [id number] / / [id number] Dep[employer] Inc Insert Tibial Knee Fixed Lm Posterior Stabilized Attune 10mm Size 5 Polyethylene [id number] - [id number] Implanted:Qty: 1 on 06/16/2022 by Reg Plummer MD at [facility] Left: Knee [employer] Inc 02/05/2030 [id number] / / [id number] [employer] Inc Insert Tibial Knee Fixed Rm Posterior Stabilized Attune 10mm Size 4 Polyethylene [id number] - [id number] Implanted:Qty: 1 on 09/01/2022 by Reg Plummer MD at [facility] [employer] Inc 01/06/2030 [id number] / / [id number] [employer] Attune S+ Cement Fix Bearing Knee 3 Baseplate Tibial [id number] - [id number] Implanted:Qty: 1 on 09/01/2022 by Reg Plummer MD at [facility] [employer] [id number] 05/08/2032 [id number] / / [id number] Dep[employer] Inc Attune Cemented Cruciate Retaining Knee Right 4 Narrow Component [id number] - [id number] Implanted:Qty: 1 on 09/01/2022 by Reg Plummer MD at [facility] [employer] [id number] 09/08/2028 [id number] / / [id number] Er[employer] Simplex P Full Dose Radiopaque Preblend Cement Bone Tobramycin 6197-9-010 - [id number] Implanted:Qty: 3 on 09/01/2022 by Reg Plummer MD at [facility] [employer] [id number] 12/07/2023 6197-9-010 / / [id number] Procedures Procedure Name Priority Date/Time Associated Diagnosis Comments COLONOSCOPY 07/22/2023 11:36 AM TERMINAL WORKER DIAGNOSTIC MAMMOGRAM BILATERAL W HOLDEN Routine 10/14/2016 2:13 PM TERMINAL WORKER from Last 3 Months or Most Recently Relevant to Health Maintenance Results * COLONOSCOPY (07/22/2023 11:36 AM TERMINAL WORKER) Anatomical Region Laterality Modality Other Narrative Procedure Note Dakotah Pineda MD - 07/22/2023 11:36 AM CST [facility] Patient Name: Amanuel Lu Procedure Date: 07/22/2023 11:36AM Date of : 1965 Admit Type: Outpatient Age: 58 Gender: Female Attending MD: Dakotah Pineda M.D. Room: Procedure Room 1 Note Status: Finalized Patient Profile: Refer to note in patient chart for documentation of history and physical. Procedure: Colonoscopy Indications: High risk colon cancer surveillance: Personalhistory of colon cancer, Last colonoscopy: 2019 Referring MD: Valorie Benitez M.D. Providers: Dakotah Pineda M.D. Impression: - Hemorrhoids found on perianal exam. - Patent end-to-side ileo-colonic anastomosis, characterized by healthy appearing mucosa. - The examination was otherwise normal. - No specimens collected. Recommendation: - Discharge patient to home. - Resume previous diet. - Continue present medications. - Repeat colonoscopy in 3 years for surveillance. - Return to primary care physician as previously scheduled. Medicines: Propofol per Anesthesia Complications: No immediate complications. Estimated Blood Loss: Estimated blood loss: none. Procedure: Pre-Anesthesia Assessment: - This assessment was completed [Time ofAssessment] prior to the administration of sedation. - This assessment was completed [Time ofAssessment] prior to the administration of sedation. The benefits, risks and alternatives of theprocedure and sedation were discussed and informed consentwas obtained. All questions were answered. Please referto the signed informed consent document in the medical record. The bowel preparation used was Miralax and bisacodyl tablets via split dose instruction. The scope was passed under direct vision. TheColonoscope [id number] was introduced through the anus and advanced to the the ileocolonic anastomosis.The colonoscopy was performed without difficulty. The patient tolerated the procedure well. The qualityof the bowel preparation was excellent. The terminal ileum and the rectum were photographed. Findings: Hemorrhoids were found on perianal exam. There was evidence of a prior end-to-side ileo-colonic anastomosis at the hepatic flexure. This was patent and was characterized by healthy appearing mucosa. The exam was otherwise without abnormality. Electronically signed by Dakotah Pineda M.D. Dakotah Pineda M.D. 07/22/2023 12:33:31 PM Number of Addenda: 0 Note Initiated On: 07/22/2023 11:36 AM Procedure Code(s): --- Professional --- G0105, Colorectal cancer screening; colonoscopy on individual at high risk --- Technical --- G0105, Colorectal cancer screening; colonoscopy on individual at high risk Diagnosis Code(s): --- Professional --- Z98.0, Intestinal bypass and anastomosis status K64.9, Unspecified hemorrhoids Z85.038, Personal history of other malignant neoplasm of largeintestine --- Technical --- Z98.0, Intestinal bypass and anastomosis status K64.9, Unspecified hemorrhoids Z85.038, Personal history of other malignant neoplasm of largeintestine CPT copyright 2020 [employer]. All rights reserved. The codes documented in this report are preliminary and upon pear picker reviewmay be revised to meet current compliance requirements. Recognized by the [employer] for promoting quality in endoscopy us Dakotah Pineda MD ENDOSCOPY PROCEDURES Final Re sult * Diagnostic Mammogram Bilateral W Holden (10/14/2016 2:13 PM TERMINAL WORKER) Anatomical Region Laterality Modality Breast Bilateral Mammography 10/14/2016 2:13 PM TERMINAL WORKER Narrative 10/15/2016 9:39 AM TERMINAL WORKER JOSUE SENIOR M.D. DANIS GARCIA M.D. FINAL REPORT The radiology attending physician has personally reviewed this study, and has reviewed and/or edited this written report and agrees with it. ACC# Date Time Exam [id number] Oct 14, 2016 14:57:00 [facility] [id number] Breast US unilateral, ltd R [id number] Oct 14, 2016 14:13:00 [facility] 87522 Dig Breast Holden Black Technologist(s): juventino Swift; ; [id number] Oct 14, 2016 14:13:00 [facility] 07891 Diag Mamm, inc CAD, bilat Technologist(s): juventino Swift; ; ACC# Date Time Exam [id number] Oct 14, 2016 14:57:00 [facility] 25708 Breast US unilateral, ltd R [id number] Oct 14, 2016 14:13:00 [facility] 53887 Dig Breast Holden Black Technologist(s): juventino Swift; ; [id number] Oct 14, 2016 14:13:00 [facility] 60941 Diag Mamm, inc CAD, bilat Technologist(s): juventino Swift; ; EXAMINATION: 1. BILATERAL FULL FIELD DIGITAL DIAGNOSTIC MAMMOGRAM WITH CAD 2. BILATERAL DIGITAL BREAST TOMOSYNTHESIS 3. RIGHT BREAST SONOGRAM HISTORY: 51-year-old woman with mucinous carcinoma of the RIGHT breast status post partial mastectomy on 11/23/2014. She presents now with a palpable concern within the lumpectomy bed, which she first noticed one month ago. MAMMOGRAM TECHNIQUE: Full field digital craniocaudal and mediolateral oblique views of both breasts were obtained. A tangent view of the right breast was also obtained. Computer Aided Detection was performed. Digital breast tomosynthesis was performed and reviewed as a part of this examination. COMPARISON: 10/28/2015 and 04/24/2015 BREAST PARENCHYMAL COMPOSITION: There are scattered areas of fibroglandular density. MAMMOGRAM FINDINGS: No abnormality is identified in the LEFT breast. Changes of prior breast conservation therapy are seen in the RIGHT breast. A palpable lesion marker overlies the lumpectomy site. No suspicious abnormality is identified. SONOGRAM FINDINGS: Directed ultrasound examination of the RIGHT breast at the 9 o'clock position was performed. Tissue within the surgical bed is of equal echogenicity to the surrounding normal fatty breast tissue. A BB was placed over the palpable finding identified by the patient and a magnified tangent view was obtained. The palpable abnormality is fat density on the mammogram, compatible with fat necrosis. IMPRESSION: Fat necrosis in association with changes of breast conservation therapy in the RIGHT breast correspond to the patient's palpable abnormality. No suspicious abnormality is identified. RECOMMENDATION: Annual diagnostic mammography. OVERALL FINAL ASSESSMENT: BI-RADS Category 2: Benign finding. Requested By: Lillian Devine MD, PHD Dictated By: DANIS GARCIA M.D. on Oct 14 2016 3:51P This document has been electronically signed by: JOSUE SENIOR M.D. on Oct 15 2016 9:39A [id number] Procedure Note Provider, MD Jeannine - 12/16/2016 JOSUE SENIOR M.D. DANIS GARCIA M.D. FINAL REPORT The radiology attending physician has personally reviewed this study, and has reviewed and/or edited this written report and agrees with it. ACC# Date Time Exam [id number] Oct 14, 2016 14:57:00 [facility] [id number] Breast US [facility] [id number] Oct 14, 2016 14:13:00 [facility] 13770 Dig Breast Holden Black Technologist(s): juventino Swift; ; [id number] Oct 14, 2016 14:13:00 [facility] 86612 Diag Mamm, inc CAD, bilat Technologist(s): juventino Swift; ; [facility]# Date Time Exam [id number] Oct 14, 2016 14:57:00 [facility] [address] Breast [facility], [facility] [id number] Oct 14, 2016 14:13:00 [facility] 70259 Dig Breast [place] Technologist(s): juventino Swift; ; [id number] Oct 14, 2016 14:13:00 [facility] 95809 Diag Mamm, inc CAD, bilat Technologist(s): juventino Swift; ; EXAMINATION: 1. BILATERAL FULL FIELD DIGITAL DIAGNOSTIC MAMMOGRAM WITH CAD 2. BILATERAL DIGITAL BREAST TOMOSYNTHESIS 3. RIGHT BREAST SONOGRAM HISTORY: 51-year-old woman with mucinous carcinoma of the RIGHT breast status post partial mastectomy on 11/23/2014. She presents now with a palpable concern within the lumpectomy bed, which she first noticed one month ago. MAMMOGRAM TECHNIQUE: Full field digital craniocaudal and mediolateral oblique views of both breasts were obtained. A tangent view of the right breast was also obtained. Computer Aided Detection was performed. Digital breast tomosynthesis was performed and reviewed as a part of this examination. COMPARISON: 10/28/2015 and 04/24/2015 BREAST PARENCHYMAL COMPOSITION: There are scattered areas of fibroglandular density. MAMMOGRAM FINDINGS: No abnormality is identified in the LEFT breast. Changes of prior breast conservation therapy are seen in the RIGHT breast. A palpable lesion marker overlies the lumpectomy site. No suspicious abnormality is identified. SONOGRAM FINDINGS: Directed ultrasound examination of the RIGHT breast at the 9 o'clock position was performed. Tissue within the surgical bed is of equal echogenicity to the surrounding normal fatty breast tissue. A BB was placed over the palpable finding identified by the patient and a magnified tangent view was obtained. The palpable abnormality is fat density on the mammogram, compatible with fat necrosis. IMPRESSION: Fat necrosis in association with changes of breast conservation therapy in the RIGHT breast correspond to the patient's palpable abnormality. No suspicious abnormality is identified. RECOMMENDATION: Annual diagnostic mammography. OVERALL FINAL ASSESSMENT: BI-RADS Category 2: Benign finding. Requested By: Lillian Devine MD, PHD Dictated By: DANIS GARCIA M.D. on Oct 14 2016 3:51P This document has been electronically signed by: JOSUE SENIOR M.D. on Oct 15 2016 9:39A [id number] Historical Provider MD WEST MAMMO PROCEDURES Adelaida l Result from Last 3 Months or Most Recently Relevant to Health Maintenance Insurance [facility] MEDICARE [facility] MEDICARE MEDICARE [facility] Advance Directives For more information, please contact: [phone] * Full Code (Latest Code Status on File) Date Activated Date Inactivated Comments 07/22/2023 11:24 AM 07/22/2023 5:26 PM * LIMITED - No CPR Date Activated Date Inactivated Comments 09/01/2022 8:45 PM 09/02/2022 3:36 PM Question Answer Comments Provide aggressive medical m anagement before a full cardiopulmonary arrest occurs. Use antibiotics, IV Fluids, and medical treatment unless specifically selected below: No intubation * Full Code Date Activated Date Inactivated Comments 09/01/2022 1:42 PM 09/01/2022 8:45 PM * Full Code Date Activated Date Inactivated Comments 06/16/2022 9:26 PM 06/17/2022 6:22 PM Care Teams Hydraulics Teacher Relationship Specialty Start Date End Date Valorie Benitez MD [address] [place] [address] PCP - General Family Medicine 03/26/23
--- OUTSIDE RECORDS SUMMARY | 2024-12-31 12:23 | XMS_ITS | Encounter Summary ---
Author Organization [facility] Address [address] [place] [address] Phone Care Team Providers Care Lime Puller Name Role Phone Serge Quintero MD Unavailable [phone] Naresh Chandra MD Unavailable [phone] Espinoza Carcamo DO Unavailable [phone] Veronique Novak MD Unavailable [phone] Dex Mejia MD Unavailable [phone] Haim Wilkins Unavailable Pam Baig MD Unavailable [phone] Tariq Welch MD Unavailable [phone] Fatoumata Cox MD Unavailable Marquis Mendez MD Unavailable Carlos Ramsay APRN, CABLE STRETCHER AND TESTER Unavailable + [phone] Mialgros Calloway MD Primary Care Provider + [phone] Kris Portillo MD Unavailable Adam Kwan Primary Care Provider + [phone] Reason for Visit * Reason Comments Medication Refill Encounter Details Date Type Department Care Team (Late st Contact Info) Description [facility] [place] [address] [place] [address] Milagros Calloway MD [address] 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 file Not on file Not on file documented as of this encounter Miscellaneous Notes * Telephone Encounter - Lucien Dasilva RN - 01/25/2024 8:22 AM CDT discontinued on 11/02/2023 by Milagros Calloway MD for the following reason: Alternate therapy documented in this encounter Plan of Treatment Upcoming Encounters Date Type Department Care Team (Latest Contact Info) Description 01/05/2025 2:30 PM CDT Office Visit [facility] - Primary Care - [place] [address] [place] [address] Aadm Kwan PAC [address] [place] [address] 05/08/2025 3:00 PM CDT Office Visit [facility] - Endocrinology - [place] [address] [place] [address] Kris Portillo MD [address] [address] 06/07/2025 1:00 PM CDT Clinical Support [facility] Oncology Services [address] [place] [address] Serge Quintero MD [address] [place] [address] Discharge Disposition: Discharged to home or Selfcare 12/07/2025 11:40 AM CDT Office Visit [facility] Oncology Services [address] [place] [address] Serge Quintero MD [address] [place] [address] Discharge Disposition: Discharged to home or Selfcare [...] Ready to change Department associated with goal: [facility] Steps to [...] Ready to change Department associated with goal: [facility] Steps to [...] Respiratory Rule-Out 09/27/2024 09/27/2024 025 2:11 PM SHELTER CASE MANAGER COVID - 19 09/27/2024 09/27/2024 09/27/2024 2:09 PM SHELTER CASE MANAGER Assessment Noted Time PHQ-9 Depression Total Score: 0 04/14/20 8:00 AM CDT documented as of this encounter Care Teams Lime Puller Relationship Specialty Start Date End Date Milagros Calloway MD [address] [place] [address] PCP - General Family Medicine 09/14/23 08/27/24 Adam Kwan, PAC [address] [place] [address] PCP - General Physician Senior Rd Engineer 08/28/24 Serge Quintero MD Consulting Physician Hematology 07/03/15 Naresh Chandra MD Consulting Physician Radiation Oncology 07/03/15 Espinoza Carcamo DO Consulting Physician Gastroenterology 07/10/15 Veronique Novak MD Consulting Physician Psychiatry 02/14/16 Dex Mejia MD [address] [address] General Surgery 06/12/16 Haim Wilkins [address] [address] Consulting Physician Obstetrics & Gynecology 02/22/17 Pam Baig MD #[address] [address] Consulting Physician Pain Medicine-Pain Management 03/19/17 Tariq Welch MD #[address] [address] Consulting Physician Orthopaedic Surgery 03/19/17 Fatoumata Cox MD [address] [facility] [address] [place] [address] Neuromuscular Medicine 03/19/17 Marquis Mendez MD [address] [facility] [address] [place] [address] Consulting Physician Cardiovascular Disease - Cardiology 08/20/22 09/27/24 Carlos Logan, VULCANIZER, CABLE STRETCHER AND TESTER [address] [place] [address] Nurse Practitioner Advanced Practice Nurse 12/01/22 Kris Portillo MD [address] [address] Consulting Physician Endocrinology 03/08/24 documented as of this encounter
--- OUTSIDE RECORDS SUMMARY | 2024-12-31 12:23 | XMS_ITS | Encounter Summary ---
Author Organization [facility] Address [address] [place] [address] Phone Care Team Providers Care Substance Abuse Specialist Name Role Phone QuinteroSerge MD Unavailable [phone] Naresh Chandra MD Unavailable [phone] Espinoza Carcamo DO Unavailable [phone] Veronique Novak MD Unavailable [phone] Dex Mejia MD Unavailable [phone] Haim Wilkins Unavailable Pam Baig MD Unavailable [phone] Tariq Welch MD Unavailable Fatoumata Cox MD Unavailable Francis Khan [facility] Primary Care Provider Modetsa Julio RN Unavailable Unavailable Lorena Day Unavailable Unavailab [place] DELIVERY DRIVER, LANDFILL GAS PLANT FIELD TECHNICIAN Primary Care Provider Marquis Mendez MD Unavailable Valorie Oates MD Primary Care Provider + [phone] Carlos Logan APRN, LANDFILL GAS PLANT FIELD TECHNICIAN Unavailable + [phone] Milagros Calloway MD Primary Care Provider + [phone] Kris Portillo MD Unavailable Adam Kwan Primary Care Provider Reason for Visit * Reason Comments Medication Refill Encounter Details Date Type Department Care Team (Late Contact Info) Description 05/07/2021 [facility] [address] [place] [address] Serge Quintero MD [address] [place], [place] [id number] Medication Refill Social History Tobacco Use Types Packs/Day Years Used Date Smoking Tobacco: Never Smokeless Tobacco: Never Alcohol Use Standard Drinks/Week Comments No 0 (1 standard drink = 0.6 oz pur e alcohol) PHQ-2 Answer Date Recorded PHQ-2 Score 0 04/14/2019 Sexually Active Control Partners Comments Yes Male Comments No Sex and Gender Information Value Date Recorded Sex Assigned at Not on file Legal Sex Female 10:18 PM CDT Gender Identity Not on file Sexual Orientation Not on file 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 No / Unsure 04/21/2021 7:58 AM CDT documented as of this encounter Miscellaneous Notes * Telephone Encounter - Marjan Mar RN - 05/07/2021 3:17 PM CDT Refilled Anastrozole documented in this encounter Plan of Treatment Upcoming Encounters Date Type Department Care Team (Latest Contact Info) Description 01/05/2025 2:30 PM CDT [facility] [place] [address] [place] [address] Adam Kwan, PAC [address] [place] [address] 05/08/2025 3:00 PM CDT Office Visit [facility] - Endocrinology - [place] [address] [place] [address] Kris Portillo MD [address] [address] 06/07/2025 1:00 PM CDT Clinical Support [facility] Oncology Services [address] [place] [address] Serge Quintero MD [address] [place] [address] Discharge Disposition: Discharged to home or Selfcare 12/07/2025 11:40 AM CDT Office Visit [facility] [address] [place] [address] Serge Quintero MD [address] [place] [address] Discharge Disposition: Discharged to home or Selfcare documented as of this encounter Visit Diagnoses Diagnosis Hx of breast cancer Personal history of malignant neoplasm of breast documented in this encounter Additional Health Concerns Infection Onset Date Last Indicated Resolved Time COVID - 19 08/29/2021 08/29/2021 08/30/2021 6:41 PM TEEN COUNSELOR COVID - 19 Confirmed 08/29/2021 08/29/2021 022 12:16 AM TEEN COUNSELOR Respiratory Rule-Out 09/27/2024 09/27/2024 025 2:11 PM TEEN COUNSELOR COVID - 19 09/27/2024 09/27/2024 09/27/2024 2:09 PM TEEN COUNSELOR Assessment Noted Time PHQ-9 Depression Total Score: 0 04/14/20 8:00 AM CDT documented as of this encounter Care Teams Substance Abuse Specialist Relationship Specialty Start Date End Date Francis Khan, BREA [address] [facility] [address] [place] [address] PCP - General Physician Nursing Agency Manager 08/29/20 12/15/21 Ashley Sweeney, DELIVERY DRIVER, LANDFILL GAS PLANT FIELD TECHNICIAN [address] [place] [address] PCP - General Advanced Practice Nurse 12/16/21 Valorie Benitez MD [address] [place] [address] PCP - General Family Medicine 12/24/22 09/13/23 Milagros Calloway MD [address] [place] [address] PCP - General Family Medicine 09/14/23 08/27/24 Adam Kwan, [facility] [address] [place] [address] PCP - General Physician Nursing Agency Manager 08/28/24 Serge Quintero MD Consulting Physician Hematology 07/03/15 Naresh Chandra MD Consulting Physician Radiation Oncology 07/03/15 Espinoza Carcamo DO Consulting Physician Gastroenterology 07/10/15 Veronique Novak MD Consulting Physician Psychiatry 02/14/16 Dex Mejia MD #[address] [address] General Surgery 06/12/16 FrankyHaim gallego #[address] [address] Consulting Physician Obstetrics & Gynecology 02/22/17 Pam Baig MD #[address] [address] Consulting Physician Pain Medicine-Pain Management 03/19/17 Tariq Welch MD #[address] [address] Consulting Physician Orthopaedic Surgery 03/19/17 Fatoumata Cox MD [address] [place] [address] [address] [place] [address] Neuromuscular Medicine 03/19/17 Modesta Bojorquez RN [place] Petroleum Transport Driver 11/10/21 05/20/22 Lorena Day LSW [place] Petroleum Transport Driver 11/12/21 05/20/22 Marquis Mendez MD [address] [place] [address] Consulting Physician Cardiovascular Disease - Cardiology 08/20/22 09/27/24 Carlos Logan, DELIVERY DRIVER, LANDFILL GAS PLANT FIELD TECHNICIAN [address] [place] [address] Nurse Practitioner Advanced Practice Nurse 12/01/22 Kris Portillo MD [address] [address] Consulting Physician Endocrinology 03/08/24 documented as of this encounter
--- OUTSIDE RECORDS SUMMARY | 2024-12-31 12:23 | XMS_ITS | Encounter Summary ---
Author Organization [facility] Address [address] [place] [address] Phone Care Team Providers Care Community Pharmacist Name Role Phone QuinteroSerge MD Unavailable [phone] Naresh Chandra MD Unavailable [phone] Espinoza Carcamo DO Unavailable [phone] Veronique Novak MD Unavailable [phone] Dex Mejia MD Unavailable [phone] Haim Wilkins Unavailable Pam Baig MD Unavailable [phone] Tariq Welch MD Unavailable Fatoumata Cox MD Unavailable Francis Khan [facility] Primary Care Provider Modesta Julio RN Unavailable Unavailable Lorena Day Unavailable Unavailab [place] VACUUM CONDITIONER OPERATOR, ASSEMBLY HAND Primary Care Provider Marquis Mendez MD Unavailable Valorie Oates MD Primary Care Provider + [phone] Carlos Logan APRN, ASSEMBLY HAND Unavailable + [phone] Milagros Calloway MD Primary Care Provider + [phone] Kris Portillo MD Unavailable Adam Kwan Primary Care Provider Reason for Visit * Reason Comments Medication Refill Encounter Details Date Type Department Care Team (Late st Contact Info) Description 04/15/2021 Refill [facility] - Primary Care - [place] [address] [place] [address] Francis Khan PAC Medication Refill Social [...] 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 No / Unsure 03/17/2021 9:54 AM CDT documented as of this encounter Miscellaneous Notes * Telephone Encounter - Francis Khan PAC - 04/15/2021 1:23 PM CDT rx refused. Pt to continue on omeprazole only. * Telephone Encounter - Ani Carlisle RN - 04/15/2021 1:21 PM CDT Per nursing clinical judgement, provider to review and approve the medication(s) order(s) if appropriate. Requested Prescriptions Pending Prescriptions Disp Refills famotidine (PEPCID) 20 MG Tablet [Pharmacy Med Name: FAMOTIDINE 20 MG TAB 20 Tablet] 60 Tablet 1 Sig: TAKE 2 TABS BY MOUTH DAILY. H2 Antagonists Protocol Passed - 04/15/2021 1:20 PM Passed - Visit with relevant provider in past 12 months or upcoming 90 days Recent Visits Date Type Provider Dept 03/17/21 Office Visit Ashley Sweeney APN, ASSEMBLY HAND [facility] [address] 02/12/21 Office Visit Francis Khan, PAC [facility] [address] 11/01/20 Office Visit Francis Khan, PAC [facility] [address] 08/29/20 Office Visit Francis Khan, PAC [facility] [address] 05/24/20 Office Visit Francis Khan, PAC [facility] [address] 04/19/20 Office Visit Cj Carpenter MD [facility] [address] Showing recent visits within past 365 days and meeting all other requirements Future Appointments Date Type Provider Dept 04/21/21 Appointment Francis Khan, PAC [facility] [address] Showing future appointments within next 90 days and meeting all other requirements documented in this encounter Plan of Treatment Upcoming Encounters Date Type Department Care Team (Latest Contact Info) Description 01/05/2025 2:30 PM CDT Office Visit [facility] - Primary Care - [place] [address] [place] [address] Adam Kwan, BREA [address] [place] [address] 05/08/2025 3:00 PM CDT Office Visit [facility] - Endocrinology - [place] [address] [place] [address] Kris Portillo MD [address] [address] 06/07/2025 1:00 PM CDT Clinical Support [facility] On[facility] Services [address] [place] [address] Serge Quintero MD [address] [place] [address] Discharge Disposition: Discharged to home or Selfcare 12/07/2025 11:40 AM CDT Office Visit [facility] Services [address] [place] [address] Serge Quintero MD [address] [place] [address] Discharge Disposition: Discharged to home or Selfcare documented as of this encounter Visit Diagnoses Not on filedocumented in this encounter Additional Health Concerns Infection Onset Date Last Indicated Resolved Time COVID - 19 08/29/2021 08/29/2021 08/30/2021 6:41 PM PHOTOGRAMMETRIC SURVEYOR COVID - 19 Confirmed 08/29/2021 08/29/2021 022 12:16 AM PHOTOGRAMMETRIC SURVEYOR Respiratory Rule-Out 09/27/2024 09/27/2024 025 2:11 PM PHOTOGRAMMETRIC SURVEYOR COVID - 19 09/27/2024 09/27/2024 09/27/2024 2:09 PM PHOTOGRAMMETRIC SURVEYOR Assessment Noted Time PHQ-9 Depression Total Score: 0 04/14/20 19 8:00 AM CDT documented as of this encounter Care Teams Community Pharmacist Relationship Specialty Start Date End Date Francis Khan PAC [address] [facility] [address] [place] [address] PCP - General Physician Cctv Technician 08/29/20 12/15/21 Ashley Sweeney, VACUUM CONDITIONER OPERATOR, ASSEMBLY HAND [address] [place] [address] PCP - General Advanced Practice Nurse 12/16/21 Valorie Benitez MD [address] [place] [address] PCP - General Family Medicine 12/24/22 09/13/23 Milagros Calloway MD [address] [place] [address] PCP - General Family Medicine 09/14/23 08/27/24 Adam Kwan PAC [address] [place] [address] PCP - General Physician Cctv Technician 08/28/24 Serge Quintero MD Consulting Physician Hematology 07/03/15 Naresh Chandra MD Consulting Physician Radiation Oncology 07/03/15 Espinoza Carcamo DO Consulting Physician Gastroenterology 07/10/15 Veronique Novak MD Consulting Physician Psychiatry 02/14/16 Dex Mejia MD #[address] [address] General Surgery 06/12/16 Haim Wilkins #[address] [address] Consulting Physician Obstetrics & Gynecology 02/22/17 Pam Baig MD #[address] [address] Consulting Physician Pain Medicine-Pain Management 03/19/17 Tariq Welch MD [address] [facility] [address] [place] [address] Consulting Physician Orthopaedic Surgery 03/19/17 Fatoumata Cox MD [address] [place] [address] [address] [place] [address] Neuromuscular Medicine 03/19/17 Modesta Bojorquez RN [place] Director Sales And Trade Marketing 11/10/21 05/20/22 Lorena Day LSW [place] Director Sales And Trade Marketing 11/12/21 05/20/22 Marquis Mendez MD [address] [place] [address] Consulting Physician Cardiovascular Disease - Cardiology 08/20/22 09/27/24 Carlos Logan APRN, ASSEMBLY HAND [address] [place] [address] Nurse Practitioner Advanced Practice Nurse 12/01/22 Kris Portillo MD [address] [address] Consulting Physician Endocrinology 03/08/24 documented as of this encounter
--- OUTSIDE RECORDS SUMMARY | 2024-12-31 12:23 | XMS_ITS | Encounter Summary ---
Author Organization [facility] Address [address] [place] [address] Phone Care Team Providers Care Soa Architect Name Role Phone Serge Quintero MD Unavailable [phone] Naresh Chandra MD Unavailable [phone] Espinoza Carcamo DO Unavailable [phone] Veronique Novak MD Unavailable [phone] Dex Mejia MD Unavailable [phone] Haim Wilkins Unavailable Pam Baig MD Unavailable [phone] Tariq Welch MD Unavailable [phone] Fatoumata Cox MD Unavailable Marquis Mendez MD Unavailable Carlos Ramsay APRN, MANAGER GIFT Unavailable + [phone] Milagros Calloway MD Primary Care Provider + [phone] Kris Portillo MD Unavailable Adam Kwan Primary Care Provider + [phone] Reason for Visit * Reason Comments Medication Refill Encounter Details Date Type Department Care Team (Late st Contact Info) Description 11/01/2023 [facility] [address] [place] [address] Serge Quintero MD [address] [place] [address] Medication Refill Social History Tobacco Use Types [...] Industry Job Start Date Job End Date [employer]- Disabled Not on file Not on file Not on file documented as of this encounter Miscellaneous Notes * Telephone Encounter - Eula Bojorquez, RN - 11/02/2023 12:11 PM CDT Approved Anastrazole refill per last Leon f/u note. documented in this encounter Plan of Treatment Upcoming Encounters Date Type Department Care Team (Latest Contact Info) Description 01/05/2025 2:30 PM CDT Office Visit [facility] - Primary Care - [place] [address] [place] [address] Adam Kwan, BREA [address] [place] [address] 05/08/2025 3:00 PM CDT Office Visit [facility] - Endocrinology - [place] [address] [place] [address] Kris Portillo MD [address] [address] 06/07/2025 1:00 PM CDT Clinical Support [facility] Oncology Services [address] [place] [address] Serge Quintero MD [address] [place] [address] Discharge Disposition: Discharged to home or Selfcare 12/07/2025 11:40 AM CDT Office Visit [facility] [address] [place] [address] Serge Quintero MD [address] [place] [address] Discharge Disposition: Discharged to home or Selfcare [...] Respiratory Rule-Out 09/27/2024 09/27/2024 025 2:11 PM GAMBLING MONITOR COVID - 19 09/27/2024 09/27/2024 09/27/2024 2:09 PM GAMBLING MONITOR Assessment Noted Time PHQ-9 Depression Total Score: 0 04/14/20 8:00 AM CDT documented as of this encounter Care Teams Soa Architect Relationship Specialty Start Date End Date Milagros Calloway MD [address] [place] [address] PCP - General Family Medicine 09/14/23 08/27/24 Adam Kwan PAC [address] [place] [address] PCP - General Physician Die Cast Technician 08/28/24 Serge Quintero MD Consulting Physician Hematology 07/03/15 Naersh Chandra MD Consulting Physician Radiation Oncology 07/03/15 Espinoza Carcamo DO Consulting Physician Gastroenterology 07/10/15 Veronique Novak MD Consulting Physician Psychiatry 02/14/16 Dex Mejia MD [address] [address] General Surgery 06/12/16 Haim Wilkins [address] [address] Consulting Physician Obstetrics & Gynecology 02/22/17 Pam Baig MD [address] [address] Consulting Physician Pain Medicine-Pain Management 03/19/17 Tariq Welch MD [address] [address] Consulting Physician Orthopaedic Surgery 03/19/17 Fatoumata Cox MD [address] [facility] [address] [address] [place] [address] Neuromuscular Medicine 03/19/17 Marquis Mendez MD [address] [facility] [address] [place] [address] Consulting Physician Cardiovascular Disease - Cardiology 08/20/22 09/27/24 Carlos Logan, QUALITY CONTROL SCIENTIST, MANAGER GIFT [address] [place] [address] Nurse Practitioner Advanced Practice Nurse 12/01/22 Kris Portillo MD [address] [place] [address] Consulting Physician Endocrinology 03/08/24 documented as of this encounter
--- OUTSIDE RECORDS SUMMARY | 2024-12-31 12:23 | XMS_ITS | Referral Summary ---
Author Organization [facility] Address [address] [place] [address] Care Team Providers Care Senior Energy Consultant Name Role Phone Valorie Benitez MD Primary Care Provider [phone] Encounters Date Type Department Care Team Description 11/24/2024 Telephone [facility] [address] [place] [address] [address] [address] Fatoumata Cox MD 11/07/2024 Telephone [facility] Neurology [address] [address] Fatoumata Cox MD 10/24/2024 1:15 PM CDT Office Visit [facility] Neurology [address] [address] Fatoumata Cox MD Postural hypotension (Primary Dx); Complex sleep apnea syndrome; Myoclonic jerking; Restless leg syndrome; Severe obesity (HCC); Body mass index 40.0-44.9, adult (CMS/HCC) (HCC) 10/11/2024 10:00 AM CHILD CARE AIDE Office Visit [facility] Gastroenterology at [address], [place] [address] Faustino Thomas NP Gastroesophageal reflux disease without esophagitis (Primary Dx); Nausea without vomiting; Medication side effect; NSAID long-term use; History of colon cancer; Colon cancer screening; Status post right hemicolectomy from Last 3 Months Allergies Active Allergy Reactions Criticality Noted Date [...] TOTAL) BY MOUTH DAILY 30 tablet 11/15/19 25 2024 Discontinued Active Problems Problem Noted Date Diagnosed Date Severe obesity 10/24/2024 Body mass index 40.0-44.9, adult ([facility]) 10/24 Colon cancer screening 03/27/2024 Complex sleep apnea syndrome 08/03/2023 Memory loss 02/08/2023 Primary osteoarthritis of right knee 09/01/2022 Primary osteoarthritis of left knee 06/16/2022 Gastroesophageal reflux disease 06/03/2021 Assessment & Plan (06/03/2021 2:25 PM CDT): Continue prilosec and pepcid and return prn 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 Right hemicolectomy 07/16/2015. Began adjuvant postoperative chemotherapy September 2015 and received 10 cycles of FOLFOX which she completed January 2016. She declined the final 2 prescribed cycles because of mucositis symptoms. Stage IIIA (Y2K3kI5) adenocarcinoma of the ascending colon. Right hemicolectomy 07/16/2015. Began adjuvant postoperative chemotherapy September 2015 and received 10 cycles of FOLFOX which she completed January 2016. She declined the final 2 prescribed cycles because of mucositis symptoms. 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 She completed right breast radiotherapy 03/11/2015. She was not recommended to receive chemotherapy but was placed on anastrozole. 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, mucinous carcinoma of [...] movement 08/24/2011 Overview (11/13/2016): Abnormal involuntary movements Immunizations Immunization Administration Dates Next Due Influenza, Quadrivalent, Spl it, Preservative Free, Intramuscular 04/16/2023,06/30/2022,04/21/2021,04/19,04/14/2019,04/22/2018,07/08/2016 Influenza, Trivalent, Preser vative Free, Intramuscular 08/31/2024 Pneumococcal Conjugate Pcv20 06/30/2022 Pneumococcal Polysaccharide PPV23 02/01/2013 Tdap 08/28/2016 Social History Tobacco Use Types Packs/Day Years [...] Frequency of Binge Drinking Not on file 03/09 Personal Safety Answer Date Recorded Have you ever been in or are you currently in a harmful physical or emotional relationship or is someone making you feel afraid or unsafe? 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 file Not on file Not on file Last Filed Vital Signs Vital Sign Reading Time Taken Comments Blood Pressure 104/70 10/24/2024 12:59 PM CDT Pulse 93 10/24/2024 12:59 PM CDT Temperature 36.6 C (97.8 F) 07/22/2023 12:59 PM CHILD CARE AIDE Respiratory Rate 18 07/22/2023 12:59 PM CHILD CARE AIDE Oxygen Saturation 94% 10/24/2024 12:59 PM CDT Inhaled Oxygen Concentration - - Weight 96.7 kg (213 lb 3.2 oz) 10/24/2024 12:59 PM CDT Height 154.9 cm (5' 0.98) 10/24/2024 12:59 PM C DT Body Mass Index 40.3 10/24/2024 12:59 PM CDT Plan of Treatment Not on file Medical Devices Implanted Type Area Rotary Derrick Operator Device Identifier Shelf Expiration Date Model / Serial / Lot Emy [employer] Simplex P Full Dose Radiopaque Preblend Cement Bone Tobramycin 6197-9-010 - [id number] Implanted:Qty: 3 on 06/16/2022 by Reg Plummer MD at [facility] Bone Cement Left: Knee [employer] 07/08/2023 6197-9-010 / / [id number] [employer]c [id number] Head Radial 20mm Acumed Cntr Elbow Right [facility] Solution 2 - [id number] Implanted:Qty: 1 on 2020 by Dakotah Quiroga MD at [facility] Right: Radius [employer] [id number] 09/05/2026 5001-0520R- [id number] / / [id number] Ac[employer] Inc [id number] 2mm 25mm 8mm Anatomic Total Thread Hole Grit Blast Surface Elbow - [id number] Implanted:Qty: 1 on 2020 by Dakotah Quiroga MD at [facility] Orthopedic [place] Right: Radius [employer] [id number] 03/30/2024 [id number] / / [id number] Medtronic Inc [id number] Progrip 15x9cm Self Gym Instructor Rectangle Mesh Surgical Polyester Hernia - [id number] Implanted:Qty: 1 on 06/16/2021 by Zhang Fletcher MD at [facility] Left: Abdomen Med[employer] Inc 05/08/2025 [id number] / / [id number] Depuy Orth[employer]ed[employer] Inc Attune S+ Cement Fix Bearing Knee 3 Baseplate Tibial [id number] - [id number] Implanted:Qty: 1 on 06/16/2022 by Reg Plummer MD at [facility] Left: Knee [employer] Inc [id number] 07/08/2031 [id number] / / [id number] Dep[employer] Inc Attune Cemented Cruciate Retaining Knee Left 5 Narrow Component [id number] - [id number] Implanted:Qty: 1 on 06/16/2022 by Reg Plummer MD at [facility] Left: Knee [employer] Inc [id number] 02/06/2032 [id number] / / [id number] Dep[employer] Orth[employer]ed[employer] Inc Insert Tibial Knee Fixed Lm Posterior Stabilized Attune 10mm Size 5 Polyethylene [id number] - [id number] Implanted:Qty: 1 on 06/16/2022 by Reg Plummer MD at [facility] Left: Knee [employer] Inc 02/05/2030 [id number] / / [id number] Dep[employer] Orth[employer] Inc Insert Tibial Knee Fixed Rm Posterior Stabilized Attune 10mm Size 4 Polyethylene [id number] - [id number] Implanted:Qty: 1 on 09/01/2022 by Reg Plummer MD at [facility] [employer] Orth[employer]ed[employer] Inc 01/06/2030 [id number] / / [id number] Dep[employer] Orth[employer] Inc Attune S+ Cement Fix Bearing Knee 3 Baseplate Tibial [id number] - [id number] Implanted:Qty: 1 on 09/01/2022 by Reg Plummer MD at [facility] [employer] Inc [id number] 05/08/2032 [id number] / / [id number] Dep[employer] Orth[employer]ed[employer] Inc Attune Cemented Cruciate Retaining Knee Right 4 Narrow Component [id number] - [id number] Implanted:Qty: 1 on 09/01/2022 by Reg Plummer MD at [facility] [employer] Inc [id number] 09/08/2028 [id number] / / [id number] Wigg[employer] Simplex P Full Dose Radiopaque Preblend Cement Bone Tobramycin 6197-9-010 - [id number] Implanted:Qty: 3 on 09/01/2022 by Reg Plummer MD at [facility] [employer] [id number] 12/07/2023 6197-9-010 / / [id number] Procedures Procedure Name Priority Date/Time Associated Diagnosis Comments COLONOSCOPY 07/22/2023 11:36 AM CHILD CARE AIDE DIAGNOSTIC MAMMOGRAM BILATERAL W HOLDEN Routine 10/14/2016 2:13 PM CHILD CARE AIDE from Last 3 Months or Most Recently Relevant to Health Maintenance Results * COLONOSCOPY (07/22/2023 11:36 AM CHILD CARE AIDE) Anatomical Region Laterality Modality Other Narrative Procedure Note Dakotah Pineda MD - 07/22/2023 11:36 AM CST [facility] Patient Name: Amanuel Lu Procedure Date: 07/22/2023 11:36AM Date of : 1965 Admit Type: Outpatient Age: 58 Gender: Female Attending MD: Dakotah Pineda M.D. Room: Procedure Room 1 Note Status: Finalized Patient Profile: Refer to note in patient chart for documentation of history and physical. Procedure: Colonoscopy Indications: High risk colon cancer surveillance: Personalhistory of colon cancer, Last colonoscopy: 2018 Referring MD: Valorie Benitez M.D. Providers: Dakotah [...] scope was passed under direct vision. TheColonoscope [id number] was introduced through the anus and advanced [...] malignant neoplasm of largeintestine CPT copyright 2020 [employer]. All rights reserved. The codes documented in this report are preliminary and upon ribber reviewmay be revised to meet current compliance requirements. Recognized by the [employer] for promoting quality in endoscopy us Dakotah Pineda MD ENDOSCOPY PROCEDURES Final Re sult * Diagnostic Mammogram Bilateral W Holden (10/14/2016 2:13 PM CHILD CARE AIDE) Anatomical Region Laterality Modality Breast Bilateral Mammography 10/14/2016 2:13 PM CHILD CARE AIDE Narrative 10/15/2016 9:39 AM CHILD CARE AIDE JOSUE SENIOR M.D. DANIS GARCIA M.D. FINAL REPORT The radiology attending physician has personally reviewed this study, and has reviewed and/or edited this written report and agrees with it. ACC# Date Time Exam [id number] Oct 14, 2016 14:57:00 [facility] 78360 Breast US unilateral, ltd R [id number] Oct 14, 2016 14:13:00 [facility] 62768 Dig Breast Holden Black Technologist(s): juventino Swift; ; [id number] Oct 14, 2016 14:13:00 [facility] 89707 Diag Mamm, inc CAD, bilat Technologist(s): juventino Swift; ; ACC# Date Time Exam [id number] Oct 14, 2016 14:57:00 [facility] 88671 Breast US unilateral, ltd R [id number] Oct 14, 2016 14:13:00 [facility] 61826 Dig Breast Holden Black Technologist(s): juventino wSift; ; [id number] Oct 14, 2016 14:13:00 [facility] 94319 Diag Mamm, inc CAD, bilat Technologist(s): juventino [...] SENIOR M.D. on Oct 15 2016 9:39A [id number] Procedure Note Provider, MD Jeannine - 12/16/2016 JOSUE SENIOR M.D. DANIS GARCIA M.D. FINAL REPORT The radiology attending physician has personally reviewed this study, and has reviewed and/or edited this written report and agrees with it. ACC# Date Time Exam [id number] Oct 14, 2016 14:57:00 [facility] 33415 Breast US unilateral, ltd R [id number] Oct 14, 2016 14:13:00 [facility] 88356 Dig Breast Holden Black Technologist(s): juventino Swift; ; [id number] Oct 14, 2016 14:13:00 [facility] 42040 Diag Mamm, inc CAD, bilat Technologist(s): juventino Swift; ; ACC# Date Time Exam [id number] Oct 14, 2016 14:57:00 [facility] 14025 Breast US unilateral, ltd R [id number] Oct 14, 2016 14:13:00 [facility] 38506 Dig Breast Holden Black Technologist(s): juventino Swift; ; [id number] Oct 14, 2016 14:13:00 [facility] [address]33 [employer] Mamm, inc CAD, bilat Technologist(s): juventino Swift; [...] SENIOR M.D. on Oct 15 2016 9:39A [id number] us Historical Provider MD WEST MAMMO PROCEDURES Adelaida l Result from Last 3 Months or Most Recently Relevant to Health Maintenance Insurance [facility] MEDICARE [facility] MEDICARE MEDICARE [facility] Advance Directives For more information, please contact: [phone] * Full Code (Latest Code Status on [...] 9:26 PM 06/17/2022 6:22 PM Care Teams Senior Energy Consultant Relationship Specialty Start Date End Date Valorie Benitez MD [address] [place] [address] PCP - General Family Medicine 03/26/23
--- OUTSIDE RECORDS SUMMARY | 2024-12-31 12:23 | XMS_ITS | Encounter Summary ---
Author Organization [facility] Address [address] [place] [address] Phone Care Team Providers Care Automotive Glass Mechanic Name Role Phone QuinteroSerge MD Unavailable [phone] Naresh Chandra MD Unavailable [phone] Espinoza Carcamo DO Unavailable [phone] Veronique Novak MD Unavailable [phone] Dex Mejia MD Unavailable [phone] Haim Wilkins Unavailable Pam Baig MD Unavailable [phone] Tariq Welch MD Unavailable Fatoumata Cox MD Unavailable Francis Khan [facility] Primary Care Provider Modesta Julio RN Unavailable Unavailable Lorena Day Unavailable Unavailab [place] DROSSER, CLINICAL EDITOR Primary Care Provider Marquis Mendez MD Unavailable Valorie Oates MD Primary Care Provider + [phone] Carlos Logan APRN, CLINICAL EDITOR Unavailable + [phone] Milagros Calloway MD Primary Care Provider + [phone] Kris Portillo MD Unavailable Adam Kwan Primary Care Provider Reason for Visit * Reason Comments Medication Refill Encounter Details Date Type Department Care Team (Late Contact Info) Description 01/09/2021 [facility] [address] [place] [address] Serge Quintero MD [address] [place] [address] Medication Refill Social History Tobacco Use Types [...] 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 No / Unsure 01/10/2021 2:05 PM CDT documented as of this encounter Miscellaneous Notes * Telephone Encounter - Marjan Mar RN - 01/10/2021 11:38 AM CDT Refilled Anastrozole next f/u 02/26 documented in this encounter Plan of Treatment Upcoming Encounters Date Type Department Care Team (Latest Contact Info) Description 01/05/2025 2:30 PM CDT Office Visit [facility] - Primary Care - [place] [address] [place] [address] Adam Kwan, PAC [address] [place] [address] 05/08/2025 3:00 PM CDT Office Visit [facility] - Endocrinology [facility] [address] [place] [address] Kris Portillo MD [address] [address] [address] 06/07/2025 1:00 PM CDT Clinical Support [facility] Oncology Services [address] [place] [address] Serge Quintero MD [address] [place] [address] Discharge Disposition: Discharged to home or Selfcare 12/07/2025 11:40 AM CDT Office Visit [facility] Oncology Services [address] [place] [address] Serge Quintero MD [address] [place] [address] Discharge Disposition: Discharged to home or Selfcare documented as of this encounter Visit Diagnoses Diagnosis Hx of breast cancer Personal history of malignant neoplasm of breast documented in this encounter Additional Health Concerns Infection Onset Date Last Indicated Resolved Time COVID - 19 08/29/2021 08/29/2021 08/30/2021 6:41 PM DIRECTOR OF PUBLIC RELATIONS COVID - 19 Confirmed 08/29/2021 08/29/2021 022 12:16 AM DIRECTOR OF PUBLIC RELATIONS Respiratory Rule-Out 09/27/2024 09/27/2024 025 2:11 PM DIRECTOR OF PUBLIC RELATIONS COVID - 19 09/27/2024 09/27/2024 09/27/2024 2:09 PM DIRECTOR OF PUBLIC RELATIONS Assessment Noted Time PHQ-9 Depression Total Score: 0 04/14/20 8:00 AM CDT documented as of this encounter Care Teams Automotive Glass Mechanic Relationship Specialty Start Date End Date Francis Khan, BREA [address] [place] [address] PCP - General Physician Electronics Production Supervisor 08/29/20 12/15/21 Ashley Sweeney, DROSSER, CLINICAL EDITOR [address] [address] PCP - General Advanced Practice Nurse 12/16/21 Valorie Benitez MD [address] [address] PCP - General Family Medicine 12/24/22 09/13/23 Mialgros Calloway MD [address] [place] [address] PCP - General Family Medicine 09/14/23 08/27/24 Adam Kwan, PAC [address] [place] [address] PCP - General Physician Electronics Production Supervisor 08/28/24 Serge Quintero MD Consulting Physician Hematology 07/03/15 Naresh Chandra MD Consulting Physician Radiation Oncology 07/03/15 Espinoza Carcamo DO Consulting Physician Gastroenterology 07/10/15 Veronique Novak MD Consulting Physician Psychiatry 02/14/16 Dex Mejia MD [address] [address] General Surgery 06/12/16 FrankyHaim [address] [address] Consulting Physician Obstetrics & Gynecology 02/22/17 Pam Baig MD [address] [address] Consulting Physician Pain Medicine-Pain Management 03/19/17 Tariq Welch MD [address] [address] Consulting Physician Orthopaedic Surgery 03/19/17 Fatoumata Cox MD [address] [place] [address] [address] [place] [address] Neuromuscular Medicine 03/19/17 Modesta Bojorquez RN [place] Supervisor Title 11/10/21 05/20/22 Lorena Day LSW [place] Supervisor Title 11/12/21 05/20/22 Marquis Mendez MD [address] [place] [address] Consulting Physician Cardiovascular Disease - Cardiology 08/20/22 09/27/24 Carlos Logan, DROSSER, CLINICAL EDITOR [address] [place] [address] Nurse Practitioner Advanced Practice Nurse 12/01/22 Kris Portillo MD [address] [id number] Consulting Physician Endocrinology 03/08/24 documented as of this encounter
--- OUTSIDE RECORDS SUMMARY | 2024-12-31 12:23 | XMS_ITS | Encounter Summary ---
Author Organization [facility] Address [address] [place] [address] Phone Care Team Providers Care Technical Spec Name Role Phone QuinteroSerge MD Unavailable [phone] Naresh Chandra MD Unavailable [phone] Espinoza Carcamo DO Unavailable [phone] Veronique Novak MD Unavailable [phone] Dex Mejia MD Unavailable +[phone] Haim Wilkins Unavailable Pam Baig MD Unavailable [phone] Tariq Welch MD Unavailable Fatoumata Cox MD Unavailable Francis Khan [facility] Primary Care Provider Modesta Julio RN Unavailable Unavailable Lorena Day Unavailable Unavailab Ashley Lake DRILL OPERATOR PNEUMATIC, LOOPER FIXER Primary Care Provider Marquis Mendez MD Unavailable Valorie Oates MD Primary Care Provider + [phone] Carlos Logan APRN, LOOPER FIXER Unavailable + [phone] Milagros Calloway MD Primary Care Provider + [phone] Kris Portillo MD Unavailable Adam Kwan Primary Care Provider Reason for Visit * Reason Comments Medication Refill Encounter Details Date Type Department Care Team ( Contact Info) Description 02/05/2021 Refill [facility] [address] [place] [address] Damien Stovall MD [address] [facility] [address] [place] [address] Medication Refill Social History Tobacco Use Types [...] 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 No / Unsure 01/10/2021 2:05 PM CDT documented as of this encounter Miscellaneous Notes * Telephone Encounter - Chloe Saravia RN - 02/06/2021 7:23 AM CDT Per nursing clinical judgement, provider to review and approve the medication(s) order(s) if appropriate. Requested Prescriptions Pending Prescriptions Disp Refills Myrbetriq 50 MG TABLET SR 24 HR [Pharmacy Med Name: MYRBETRIQ 50 MG TB24 50 Tablet] 30 Tablet 3 Sig: TAKE ONE TABLET BY MOUTH DAILY There is no refill protocol information for this order documented in this encounter Plan of Treatment Upcoming Encounters Date Type Department Care Team (Latest Contact Info) Description 01/05/2025 2:30 PM CDT Office Visit [facility] - Primary Care - [place] [address] [place] [address] Adam Kwan PAC [address] [place] [address] 05/08/2025 3:00 PM CDT Office Visit [facility] - Endocrinology [facility] #2 [place] [address] Kris Portillo MD #[address] [address] 06/07/2025 1:00 PM CDT Clinical Support [facility] Oncology Services [address] [place] [address] Serge Quintero MD [address] [place] [address] Discharge Disposition: Discharged to home or Selfcare 12/07/2025 11:40 AM CDT Office Visit [facility] Oncology Services [address] [place] [address] Serge Quintero MD [address] [place] [address] Discharge Disposition: Discharged to home or Selfcare documented as of this encounter Visit Diagnoses Diagnosis OAB (overactive bladder) Hypertonicity of bladder Urinary incontinence, unspecified type documented in this encounter Additional Health Concerns Infection Onset Date Last Indicated Resolved Time COVID - 19 08/29/2021 08/29/2021 08/30/2021 6:41 PM CONFIGURATION CONSULTANT COVID - 19 Confirmed 08/29/2021 08/29/2021 022 12:16 AM CONFIGURATION CONSULTANT Respiratory Rule-Out 09/27/2024 09/27/202409/27/2 025 2:11 PM CONFIGURATION CONSULTANT COVID - 19 09/27/2024 09/27/2024 09/27/2024 2:09 PM CONFIGURATION CONSULTANT Assessment Noted Time PHQ-9 Depression Total Score: 0 04/14/20 8:00 AM CDT documented as of this encounter Care Teams Technical Spec Relationship Specialty Start Date End Date Francis Khan, [facility] [address] [facility] [address] [place] [address] PCP - General Physician Vocational Rehabilitation Administrator 08/29/20 12/15/21 Ashley Sweeney, DRILL OPERATOR PNEUMATIC, LOOPER FIXER [address] [place] [address] PCP - General Advanced Practice Nurse 12/16/21 Valorie Benitez MD [address] [place] [address] PCP - General Family Medicine 12/24/22 09/13/23 Milagros Calloway MD [address] [place] [address] PCP - General Family Medicine 09/14/23 08/27/24 Adam Kwan, [facility] [address] [place] [address] PCP - General Physician Vocational Rehabilitation Administrator 08/28/24 Serge Quintero MD Consulting Physician Hematology 07/03/15 Naresh Chandra MD Consulting Physician Radiation Oncology 07/03/15 Espinoza Carcamo DO Consulting Physician Gastroenterology 07/10/15 Veronique Novak MD Consulting Physician Psychiatry 02/14/16 Dex Mejia MD #[address] [address] General Surgery 06/12/16 Haim Wilkins #[address] [address] Consulting Physician Obstetrics & Gynecology 02/22/17 Pam Baig MD #[address] [address] Consulting Physician Pain Medicine-Pain Management 03/19/17 Tariq Welch MD #[address] [address] Consulting Physician Orthopaedic Surgery 03/19/17 Fatoumata Cox MD [address] [place] [address] [address] [place] [address] Neuromuscular Medicine 03/19/17 Modesta Bojorquez, RN [place] Battery Tester And Repairer 11/10/21 05/20/22 Lorena Day LSW [place] Battery Tester And Repairer 11/12/21 05/20/22 Marquis Mendez MD [address] [place] [address] Consulting Physician Cardiovascular Disease - Cardiology 08/20/22 09/27/24 Carlos Logan, DRILL OPERATOR PNEUMATIC, LOOPER FIXER [address] [place] [address] Nurse Practitioner Advanced Practice Nurse 12/01/22 Kris Portillo MD [address] [address] Consulting Physician Endocrinology 03/08/24 documented as of this encounter
--- OUTSIDE RECORDS SUMMARY | 2024-12-31 12:23 | XMS_ITS | Encounter Summary ---
Author Organization [facility] Address [address] [place] [address] Phone Care Team Providers Care Coal Sample Tester Name Role Phone Serge Quintero MD Unavailable [phone] Naresh Chandra MD Unavailable [phone] Espinoza Carcamo DO Unavailable [phone] Veronique Novak MD Unavailable [phone] Dex Mejia MD Unavailable [phone] Haim Wilkins Unavailable Pam Baig MD Unavailable [phone] Tariq Welch MD Unavailable Fatoumata Cox MD Unavailable Marquis Mendez MD Unavailable Carlos Ramsay APRN, TOUR COUNSELOR Unavailable + [phone] Milagros Calloway MD Primary Care Provider + [phone] Kris Portillo MD Unavailable Adam Kwan Primary Care Provider + [phone] Reason for Visit * Reason Comments Medication Refill Encounter Details Date Type Department Care Team (Late st Contact Info) Description 01/19/2024 Refill [facility] #[address] [place] [address] Carlos Logan, PLATFORM MAN, TOUR COUNSELOR [address] [place] [address] Medication Refill Social History Tobacco Use Types [...] 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 file Not on file Not on file documented as of this encounter Plan of Treatment Upcoming Encounters Date Type Department Care Team (Latest Contact Info) Description 01/05/2025 2:30 PM CDT Office Visit [facility] - Primary Care - [place] [address] [place] [address] Adam Kwan PAC [address] [place] [address] 05/08/2025 3:00 PM CDT Office Visit [facility] - Endocrinology - [place] [address] [place] [address] Kris Portillo MD #[address] [address] 06/07/2025 1:00 PM CDT Clinical Support [facility] On[facility] Services [address] [place] [address] Serge Quintero MD 0 [place] [address] Discharge Disposition: Discharged to home or Selfcare 12/07/2025 11:40 AM CDT Office Visit [facility] [address] [place] [address] Serge Quintero MD 0 [place] [address] Discharge Disposition: Discharged to home or Selfcare [...] Ready to change Department associated with goal: [facility] Steps to [...] sessions reduce depression Behavioral Health Robbie Mathis, WOODS SUPERINTENDENT Note: Goal/Objective: Increase coping skills for depression. Anticipated Time Frame for Goal Completion: 6 months Goal Reviewed with: patient Readiness to change: Ready to change Department associated with goal: [facility] Steps to [...] Respiratory Rule-Out 09/27/2024 09/27/2024 025 2:11 PM HOSPICE DIRECTOR COVID - 19 09/27/2024 09/27/2024 09/27/2024 2:09 PM HOSPICE DIRECTOR Assessment Noted Time PHQ-9 Depression Total Score: 0 04/14/20 8:00 AM CDT documented as of this encounter Care Teams Coal Sample Tester Relationship Specialty Start Date End Date Milagros Calloway MD [address] [place] [address] PCP - General Family Medicine 09/14/23 08/27/24 Adam Kwan, PAC [address] [place] [address] PCP - General Physician Acoustical Tile Drill Press Operator 08/28/24 Serge Quintero MD Consulting Physician Hematology 07/03/15 Naresh Chandra MD Consulting Physician Radiation Oncology 07/03/15 Espinoza Carcamo DO Consulting Physician Gastroenterology 07/10/15 Veronique Novak MD Consulting Physician Psychiatry 02/14/16 Dex Mejia MD #[address] [address] General Surgery 06/12/16 Franky Haim #[address] [address] Consulting Physician Obstetrics & Gynecology 02/22/17 Pam Baig MD #[address] [address] Consulting Physician Pain Medicine-Pain Management 03/19/17 Tariq Welch MD #[address] [address] Consulting Physician Orthopaedic Surgery 03/19/17 Fatoumata Cox MD [address] [facility] [address] [place] [address] Neuromuscular Medicine 03/19/17 Marquis Mendez MD [address] [place] [address] [address] [place] [address] Consulting Physician Cardiovascular Disease - Cardiology 08/20/22 09/27/24 Carlos Logan, PLATFORM MAN, TOUR COUNSELOR [address] [place] [address] Nurse Practitioner Advanced Practice Nurse 12/01/22 Kris Portillo MD #[address] [address] Consulting Physician Endocrinology 03/08/24 documented as of this encounter
--- OUTSIDE RECORDS SUMMARY | 2024-12-31 12:23 | XMS_ITS | Encounter Summary ---
Author Organization [facility] Address [address] [place] [address] Phone Care Team Providers Care Solder Making Laborer Name Role Phone QuinteroSerge MD Unavailable [phone] Naresh Chandra MD Unavailable [phone] Espinoza Carcamo DO Unavailable [phone] Veronique Novak MD Unavailable [phone] Dex Mejia MD Unavailable [phone] Haim Wilkins Unavailable Pam Baig MD Unavailable [phone] Tariq Welch MD Unavailable Fatoumata Cox MD Unavailable Francis Khan [facility] Primary Care Provider Modesta Julio RN Unavailable Unavailable Lorena Day Unavailable Unavailab Ashley [place] FILM PRODUCER, SUPERVISOR PLASTICS Primary Care Provider Marquis Mendez MD Unavailable Valorie Oates MD Primary Care Provider + [phone] Carlos Logan APRN, SUPERVISOR PLASTICS Unavailable + [phone] Milagros Calloway MD Primary Care Provider + [phone] Kris Portillo MD Unavailable Adam Kwan Primary Care Provider Reason for Visit * Reason Comments Medication Refill Encounter Details Date Type Department Care Team (Late st Contact Info) Description 01/23[facility]20[facility] [place] [address] [place] [address] Francis Khan PAC Medication Refill Social [...] 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 - Primary Care - [place] [address] [place] [address] Adam Kwan PAC [address] [place] [address] 05/08/2025 3:00 PM CDT Office Visit [facility] - Endocrinology - [place] [address] [place] [address] Kris Portillo MD #[address] [address] 06/07/2025 1:00 PM CDT Clinical Support [facility] Oncology Services [address] [place] [address] Serge Quintero MD [address] [place] [address] Discharge Disposition: Discharged to home or Selfcare 12/07/2025 11:40 AM CDT Office Visit [facility] Oncology Services [address] [place] [address] Serge Quintero MD [address] [place] [address] Discharge Disposition: Discharged to home or Selfcare documented as of this encounter Visit Diagnoses Not on filedocumented in this encounter Additional Health Concerns Infection Onset Date Last Indicated Resolved Time COVID - 19 08/29/2021 08/29/2021 08/30/2021 6:41 PM ASSEMBLER HYDRAULIC BACKHOE COVID - 19 Confirmed 08/29/2021 08/29/2021 022 12:16 AM ASSEMBLER HYDRAULIC BACKHOE Respiratory Rule-Out 09/27/2024 09/27/2024 025 2:11 PM ASSEMBLER HYDRAULIC BACKHOE COVID - 19 09/27/2024 09/27/2024 09/27/2024 2:09 PM ASSEMBLER HYDRAULIC BACKHOE Assessment Noted Time PHQ-9 Depression Total Score: 0 04/14/20 19 8:00 AM CDT documented as of this encounter Care Teams Solder Making Laborer Relationship Specialty Start Date End Date Francis Khan PAC [address] [facility] [address] [place] [address] PCP - General Physician Salvage Repairer 08/29/20 12/15/21 Ashley Sweeney APRN, SUPERVISOR PLASTICS [address] [place] [address] PCP - General Advanced Practice Nurse 12/16/21 Valorie Benitez MD [address] [place] [address] PCP - General Family Medicine 12/24/22 09/13/23 Milagros Calloway MD [address] [place] [address] PCP - General Family Medicine 09/14/23 08/27/24 Adam Kwan PAC [address] [place] [address] PCP - General Physician Salvage Repairer 08/28/24 Serge Quintero MD Consulting Physician Hematology 07/03/15 Naresh Chandra MD Consulting Physician Radiation Oncology 07/03/15 Espinoza Carcamo DO Consulting Physician Gastroenterology 07/10/15 Veronique Novak MD Consulting Physician Psychiatry 02/14/16 Dex Mejia MD #[address] [address] General Surgery 06/12/16 Haim Wilkins #[address] [address] Consulting Physician Obstetrics & Gynecology 02/22/17 Pam Baig MD #[address] [address] Consulting Physician Pain Medicine-Pain Management 03/19/17 Tariq Welch MD #[address] [address] Consulting Physician Orthopaedic Surgery 03/19/17 Fatoumata Cox MD [address] [place] [address] [address] [place] [address] Neuromuscular Medicine 03/19/17 Modesta Bojorquez RN [place] Fire Prevention Bureau Captain 11/10/21 05/20/22 Lorena Day LSW [place] Fire Prevention Bureau Captain 11/12/21 05/20/22 Marquis Mendez MD [address] [place] [address] Consulting Physician Cardiovascular Disease - Cardiology 08/20/22 09/27/24 Carlos Logan, FILM PRODUCER, SUPERVISOR PLASTICS [address] [place] [address] Nurse Practitioner Advanced Practice Nurse 12/01/22 Kris Portillo MD #[address] [address] Consulting Physician Endocrinology 03/08/24 documented as of this encounter
--- OUTSIDE RECORDS SUMMARY | 2024-12-31 12:23 | XMS_ITS | Encounter Summary ---
Author Organization [facility] Address [address] [place] [address] Phone Care Team Providers Care Chief Embalmer Name Role Phone Cj Carpenter MD Primary Care Provider [phone] Serge Quintero MD Unavailable [phone] Naresh Chandra MD Unavailable [phone] Espinoza Carcamo DO Unavailable [phone] Veronique Novak MD Unavailable [phone] Dex Mejia MD Unavailable [phone] Haim Wilkins Unavailable Pam Baig MD Unavailable +[phone] Tariq Welch MD Unavailable Fatoumata Cox MD Unavailable Francis Khan [facility] Primary Care Provider U Modesta Bills RN Unavailable Unavailable Lorena Day Unavailable Unavailab Ashley [place] APRN, REFERENCE TEST CLERK Primary Care Provider Marquis Mendez MD Unavailable Valorie Oates MD Primary Care Provider + [phone] Carlos Logan APRN, REFERENCE TEST CLERK Unavailable + [phone] Milagros Calloway MD Primary Care Provider + [phone] Kris Portillo MD Unavailable dAam Kwan Primary Care Provider [phone] Reason for Visit * Reason Comments Medication Refill Encounter Details Date Type Department Care Team (Late Contact Info) Description 06/03/2020 [facility] [address] [place] [address] Serge Quintero MD [address] [place] [address] Medication Refill Social History Tobacco Use Types Packs/Day Years Used Date Smoking Tobacco: Never Smokeless Tobacco: Never Alcohol Use Standard Drinks/Week Comments No 0 (1 standard drink = 0.6 oz pur e alcohol) PHQ-2 Answer Date Recorded PHQ-2 Score 0 04/14/2019 Sexually Active Control Partners Comments Never Male Comments No Sex and Gender Information Value Date Recorded Sex Assigned at Not on file Legal Sex Female 10:18 PM CDT Gender Identity Not on file Sexual Orientation Not on file 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 No / Unsure 05/29/2020 1:27 PM CDT documented as of this encounter Plan of Treatment Upcoming Encounters Date Type Department Care Team (Latest Contact Info) Description 01/05/2025 2:30 PM CDT Office Visit [facility] - Primary Care - [place] [address] [place] [address] Adam Kwan PAC [address] [place] [address] 05/08/2025 3:00 PM CDT Office Visit [facility] - Endocrinology - [place] [address] [place] [address] Kris Portillo MD #[address] [address] 06/07/2025 1:00 PM CDT Clinical Support [facility] Oncology Services [address] [place] [address] Serge Quintero MD [address] [place] [address] Discharge Disposition: Discharged to home or Selfcare 12/07/2025 11:40 AM CDT Office Visit [facility] Oncology Services [address] [place] [address] Serge Quintero MD [address] [place] [address] Discharge Disposition: Discharged to home or Selfcare documented as of this encounter Visit Diagnoses Diagnosis Hx of breast cancer Personal history of malignant neoplasm of breast documented in this encounter Additional Health Concerns Infection Onset Date Last Indicated Resolved Time COVID - 19 08/29/2021 08/29/2021 08/30/2021 6:41 PM BID CLERK COVID - 19 Confirmed 08/29/2021 08/29/2021 022 12:16 AM BID CLERK Respiratory Rule-Out 09/27/2024 09/27/2024 025 2:11 PM BID CLERK COVID - 19 09/27/2024 09/27/2024 09/27/2024 2:09 PM BID CLERK Assessment Noted Time PHQ-9 Depression Total Score: 0 04/14/20 19 8:00 AM CDT documented as of this encounter Care Teams Chief Embalmer Relationship Specialty Start Date End Date Cj Carpenter MD [address] [place] [address] PCP - General Internal Medicine 05/25/15 08/28/20 Francis Khan, PAC [address] [facility] [address] [place] [address] PCP - General Physician Cobol Engineer 08/29/20 12/15/21 Ashley Sweeney APRN, REFERENCE TEST CLERK [address] [place] [address] PCP - General Advanced Practice Nurse 12/16/21 Valorie Benitez MD [address] [place] [address] PCP - General Family Medicine 12/24/22 09/13/23 Milagros Calloway MD [address] [place] [address] PCP - General Family Medicine 09/14/23 08/27/24 Adam Kwan, PAC [address] [place] [address] PCP - General Physician Cobol Engineer 08/28/24 Serge Quintero MD [address] [place] [address] Consulting Physician Hematology 07/03/15 Naresh Chandra MD [address] [place] [address] Consulting Physician Radiation Oncology 07/03/15 Espinoza Carcamo DO [address] [place] [address] Consulting Physician Gastroenterology 07/10/15 Veronique Novak MD [address] [place] [address] Consulting Physician Psychiatry 02/14/16 Dex Mejia MD #[address] [address] General Surgery 06/12/16 Haim Wilkins #[address] [address] Consulting Physician Obstetrics & Gynecology 02/22/17 Pam Baig MD #[address] [address] Consulting Physician Pain Medicine-Pain Management 03/19/17 Tariq Welch MD #[address] [address] Consulting Physician Orthopaedic Surgery 03/19/17 Fatoumata Cox MD [address] [place] [address] [address] [place] [address] Neuromuscular Medicine 03/19/17 Modesta Bojorquez RN [place] Fabric Machine Operator 11/10/21 05/20/22 Lorena Day LSW [place] Fabric Machine Operator 11/12/21 05/20/22 Marquis Mendez MD [address] [place] [address] Consulting Physician Cardiovascular Disease - Cardiology 08/20/22 09/27/24 Carlos Logan, NEWS PRODUCER, REFERENCE TEST CLERK [address] [place] [address] Nurse Practitioner Advanced Practice Nurse 12/01/22 Kris Portillo MD [address] [address] Consulting Physician Endocrinology 03/08/24 documented as of this encounter
[2024-12-31 12:31] VITALS: BP 114/77; PULSE 106; RESP 16; TEMP 35.9; O2SAT 99
[2024-12-31 13:58] LABS: EDUAAPPEAR Cloudy; EDUABILI 1+ (Negative); EDUABLOOD 3+ (Negative); EDUACOLOR1 Yellow; EDUAGLUCOSE Negative (Negative); EDUAKETONE Negative (Negative); EDUALEUKO 3+ (Negative); EDUANITRATE Negative (Negative); EDUAPROTEIN 3+ (Negative); EDUAUROBILI 0.2
--- NOTE | 2024-12-31 15:52 | ED.FEMALEGU ---
HPI - Female Genitourinary General Chief complaint: Urogenital-Female Stated complaint: Urinary Problem Time Seen by Provider: 12/31/24 13:30 Source: patient and RN notes reviewed Mode of arrival: ambulatory Limitations: no limitations History of Present Illness HPI Narrative: 59-year-old female presents Express Care complaining of urinary symptoms for 14 days. Patient reports having dysuria, increased frequency over the last 2 weeks. Patient thought the symptoms would go away on its own however over the last few days she noticed worsening dysuria, suprapubic pain, hematuria, and low back pain. Patient denies any fevers, body aches, chills, nausea, vomiting, diarrhea. Patient has not taken anything [id number] for symptoms. Patient does have a history of diabetes. Related Data Home Medications ?Medication ?Instructions ?Recorded ?Confirmed ?Last Taken ?Type albuterol sulfate 90 mcg/actuation inhalation 12/31/24 Unknown History aerosol inhaler anastrozole 1 mg tablet mg 12/31/24 Unknown History aripiprazole 15 mg tablet mg 12/31/24 Unknown History dextroamphetamine-amphetamine 30 12/31/24 Unknown History mg tablet gabapentin 400 mg capsule mg 12/31/24 Unknown History hydroxyzine HCl 25 mg tablet mg 12/31/24 Unknown History meloxicam 15 mg tablet mg 12/31/24 Unknown History ondansetron 4 mg disintegrating mg 12/31/24 Unknown History tablet primidone 50 mg tablet mg 12/31/24 Unknown History tirzepatide 7.5 mg/0.5 mL mg subcut 12/31/24 Unknown History subcutaneous pen injector (Mounjaro) venlafaxine 150 mg mg PO 12/31/24 Unknown History capsule,extended release 24 hr venlafaxine 75 mg capsule,extended mg PO 12/31/24 Unknown History release 24 hr vibegron 75 mg tablet (Gemtesa) mg 12/31/24 Unknown History Allergies Allergy/AdvReac Type Severity Reaction Status Date / Time Penicillins Allergy Severe Anaphylaxis Verified 12/31/24 12:45 adhesive tape Allergy Intermediate Rash Verified 12/31/24 12:45 cephalexin (From Keflex) Allergy Intermediate Gastrointestinal Verified 12/31/24 12:45 Upset povidone-iodine (From Allergy Intermediate Rash Verified 12/31/24 12:45 Betadine) Review of Systems Review of Systems: CONSTITUTIONAL: Denies fever, chills, body aches, or sweats. EYES: Denies visual changes, redness, or discharge. ENT: Denies rhinorrhea, congestion, sore throat, or otalgia. CARDIOVASCULAR: Denies chest pain, palpitations, or edema. RESPIRATORY: Denies cough or dyspnea. GASTROINTESTINAL: Denies abdominal pain, nausea, vomiting, or diarrhea. GENITOURINARY: Positive for dysuria, increased frequency, hematuria, suprapubic pain. Negative for vaginal bleeding or vaginal discharge. SKIN: Denies rash or itching. MUSCULOSKELETAL: Positive for back pain. Negative for joint pain or myalgia. NEUROLOGIC: Denies headache, numbness, or weakness. PSYCHIATRIC: Denies anxiety or depression. All other systems reviewed are negative, except as documented in HPI. PMFSH Comments At the time of my signature, I reviewed and agree with the nursing past medical, surgical, social, and family history. There is no relevant family history pertinent to the patient complaint. Exam Narrative: GENERAL: This is a well-nourished, well-developed adult, in no apparent distress. They are non ill-appearing, nontoxic appearing. Patient is obese. Physical exam limited due to large body habitus. HEAD: normocephalic, atraumatic. EYES: Sclera clear/white. Vision is grossly intact. Conjunctiva normal bilaterally. Extraocular movements intact. EARS: External ears normal,Hearing grossly intact. NOSE: External nose normal THROAT: Mucous membranes moist NECK: Normal range of motion CARDIOVASCULAR: Regular rate and rhythm. Normal S1-S2. No clicks, gallops, rubs, or murmurs. RESPIRATORY: Respiratory rate normal, respiratory effort nonlabored, no respiratory distress. Lungs are clear to auscultation throughout. Now Adventitious lung sounds. GASTROINTESTINAL: Abdomen large, soft, round, suprapubic tenderness to palpation., nondistended. Bowel sounds are active. No hepato-splenomegaly, or palpable masses. No guarding or rigidity. No rebound tenderness. SKIN: warm, Dry, intact with no suspicious lesions or rash, good texture and turgor. NEURO: awake, alert, and oriented to person, place and time. There were no obvious focal neurologic abnormalities. EXTREMITIES: No joint tenderness, effusion, or edema noted. BACK: Nontender without deformity. Left CVA tenderness. No right CVA tenderness. Course Course Emergency Course: Portions of this record may have been created with voice recognition software Level of Care: Express Care Visit Vital Signs Vital signs: Vital Signs Temperature 96.6 F L 12/31/24 12:31 Pulse Rate 106 H 12/31/24 12:31 Respiratory Rate 16 12/31/24 12:31 Blood Pressure 114/77 12/31/24 12:31 Pulse Oximetry 99 12/31/24 12:31 Oxygen Delivery Room Air 12/31/24 12:31 Temperature 96.6 F L 12/31/24 12:31 Pulse Rate 106 H 12/31/24 12:31 Respiratory Rate 16 12/31/24 12:31 Blood Pressure 114/77 12/31/24 12:31 Pulse Oximetry 99 12/31/24 12:31 Oxygen Delivery Room Air 12/31/24 12:31 MDM - Female Genitourinary MDM Narrative Medical decision making narrative: Urine dipstick shows evidence of urinary tract infection. Urine culture pending. Given patient's exam findings is possible she may be developed early pyelonephritis. Patient is well-appearing and in no apparent distress. Patient is Hemodynamically stable. Will cover for pyelonephritis and urinary tract infection with levofloxacin. Discussed physical exam findings. Advised supportive measures and signs/symptoms to go to the ER. Pt is appropriate for outpt treatment and f/u. Differential Diagnosis Differential diagnosis: Likely urinary tract infection, cystitis and other (Pyelonephritis) Lab Data Attestation: I reviewed the patient's lab results. Labs: Lab Results 12/31/24 Range/Units 13:54 POC Urine Color Yellow POC Urine Clarity Cloudy POC Urine pH 6.0 POC Ur Specif [place] 1.030 POC Urine Protein 3+ (Negative) POC Ur Glucose (UA) Negative (Negative) POC Urine Ketones Negative (Negative) POC Urine Blood 3+ (Negative) POC Urine Nitrite Negative (Negative) POC Urine Bilirubin 1+ (Negative) POC Urine Urobilinogen 0.2 POC U Leukocyte Esteras 3+ (Negative) Discharge Plan Discharge Clinical Impression: Urinary tract infection Qualifiers: Urinary tract infection type: site unspecified Hematuria presence: with hematuria Qualified Code(s): N39.0 - Urinary tract infection, site not specified Patient Disposition: Home Condition: Stable Instructions: Antibiotic Form, Urinary Tract Infection in Older Adults (ED) Additional Instructions: Take the antibiotic as prescribed The urine will be sent of for a culture to identify what type of bacteria is causing your infection. If the culture shows that the antibiotic will not get rid of your infection, you will be notified and a new antibiotic will be called in for you. Increase water intake you will need to follow up with your PCP 3-5 days. Go to the ER for any worsening symptoms, abdominal pain, fevers, nausea, vomiting, or any other concerns Patient Language: Dominican Prescriptions: New ciprofloxacin HCl 500 mg tablet 500 mg PO Q12H 7 Days Qty: 14 0RF No Action anastrozole 1 mg tablet primidone 50 mg tablet venlafaxine 75 mg capsule,extended release 24hr PO meloxicam 15 mg tablet gabapentin 400 mg capsule venlafaxine 150 mg capsule,extended release 24hr PO dextroamphetamine-amphetamine 30 mg tablet hydroxyzine HCl 25 mg tablet albuterol sulfate 90 mcg/actuation HFA aerosol inhaler INHALATION ondansetron 4 mg tablet,disintegrating aripiprazole 15 mg tablet Gemtesa 75 mg tablet Mounjaro 7.5 mg/0.5 mL pen injector SUBCUT Follow-up/Referrals: Aquiles,Adam Roldan. [Primary Care Provider] - Time of Disposition: 13:58
== END 2024-12-31 14:06 | disposition home or self-care (01) ==
PROVIDERS: PCP Physician Assistant
DX: N39.0 Urinary tract infection, site not specified (principal); E11.9 Type 2 diabetes mellitus without complications
CPT/HCPCS: 81003; 87086; 99203; G0463